=== PATIENT | female | born 1960 | race Caucasian/White ===

== ENCOUNTER 2016-08-06 12:48 | Observation (INO) | payer OTHER ==
[2016-08-06] MEDS ORDERED: SODIUM CHLORIDE 0.9% 1,000 ML IV STA (13:33)
[2016-08-06] MEDS ORDERED: ONDANSETRON 4 MG/2 ML VIAL IVP STA ×2 (13:33→16:08)
[2016-08-06] MEDS ORDERED: NITROGLYCERIN OINT 1 INCH/GM PACKET TOPICAL STA (13:33)
[2016-08-06] MEDS ORDERED: HYDROmorphone 1 MG/ML 1 ML SYRINGE IVP STA ×2 (13:34→16:01)
[2016-08-06 14:01] LABS: Basophils # (A) 0.1 k/uL (0-0.2); Basophils % (A) 1 %; CH 28.6; CHCM 32.4; Eosinophils # (A) 0.2 k/uL (0-0.7); Eosinophils % (A) 3 %; HCT 43.3 % (34.0-46.0); HDW 2.46; HGB 13.7 gm/dL (11.4-16.0); Luc # (Auto) 0.15; Luc % (Auto) 2; Lymphocytes # (A) 2.1 k/uL (1.0-4.8); Lymphocytes % (A) 29 %; MCH 28.2 pg (25.0-35.0); MCHC 31.8 g/dL (31.0-37.0); MCV 88.7 fL (80.0-100.0); Mean Platelet Volume 7.8; Monocytes # (A) 0.5 k/uL (0-1.0); Monocytes % (A) 7 %; Neutrophils # (A) 4.2 k/uL (1.3-7.7); Neutrophils % (A) 58 %; RBC 4.88 m/uL (3.80-5.40); WBC 7.3 k/uL (3.8-10.6); WBC (Perox) 6.92
[2016-08-06 14:20] LABS: Creatine Kinase 85 U/L (30-135)
--- NOTE | 2016-08-06 14:27 | XR ---
EXAMINATION TYPE: XR chest 2V DATE OF EXAM: 08/06/2016 2:22 PM COMPARISON: 01/18/2016 TECHNIQUE: PA and lateral views submitted. HISTORY: Chest pain FINDINGS: The lungs are clear and there is no pneumothorax, pleural effusion, or focal pneumonia. Hyperinflat ion noted. Biapical pleural thickening noted. Hypertrophic and degenerative change of the spine. Surg ical clips in the right upper quadrant. IMPRESSION: 1. No acute process.
[2016-08-06 14:31] LABS: Partial Thromboplastin Time 24.6 sec (22.0-30.0); Prothrombin Time 10.5 sec (9.0-12.0)
[2016-08-06 14:34] LABS: Creatine Kinase MB 0.6 ng/mL (0.0-2.4); Troponin I <0.012 ng/mL (0.000-0.034)
[2016-08-06 15:10] LABS: ALT 114 U/L (9-52); AST 164 U/L (14-36); Alkaline Phosphatase 93 U/L (38-126); Amylase 162 U/L (30-110); Anion Gap 10 mmol/L; Blood Urea Nitrogen 10 mg/dL (7-17); Calcium 9.2 mg/dL (8.4-10.2); Carbon Dioxide 26 mmol/L (22-30); Chloride 108 mmol/L (98-107); Glucose 86 mg/dL (74-99); Magnesium 1.9 mg/dL (1.6-2.3); Non-African American GFR(MDRD) >60 (>60 ml/min/1.73 sqM); Sodium 144 mmol/L (137-145); Total Bilirubin 1.2 mg/dL (0.2-1.3); Total Protein 7.2 g/dL (6.3-8.2)
[2016-08-06] MEDS ORDERED: RX INFO: IV CONTRAST WAS GIVEN 1 EACH MISC MISCELLANE PRN ×2 (15:14→15:16)
--- NOTE | 2016-08-06 15:27 | ED ---
Chest Pain HPI - General Chief Complaint: Chest Pain Stated Complaint: Chest Pain, SOB Time Seen by Provider: 08/06/16 13:07 Source: patient Mode of arrival: wheelchair Limitations: no limitations - History of Present Illness Initial Comments: Draining about chest pain off and on since 4 AM today she is also complaining about pain in the epigastric area and slight pain in the right upper quadrant area she does have a history of hypertension and now has no history of coronary artery disease she had gallbladder surgery about 3 years ago and right knee and chest pain is 5/10 pain gets worse with deep breaths. She denies any fever no chills she is not coughing up any phlegm no headache no neck stiffness no fever no chills no frequency urgency dysuria - Related Data Home Medications Medication Instructions Recorded Confirmed ALPRAZolam [Xanax] 1 mg PO TID PRN 12/05/13 08/06/16 Aspirin 81 mg PO HS 01/18/16 08/06/16 Lisinopril [Prinivil] 20 mg PO HS 08/06/16 08/06/16 Allergies Allergy/AdvReac Type Severity Reaction Status Date / Time No Known Allergies Allergy Verified 08/06/16 13:51 Review of Systems ROS Statement: Those systems with pertinent positive or pertinent negative responses have been documented in the HPI. ROS Other: All systems not noted in ROS Statement are negative. EKG Findings - EKG Comments: EKG Findings:: Normal sinus rhythm ventricular rate is 70 WA interval is 118 QRS duration is 76 QT/QTc is 380/419 diffuse this EKG reveals some T-wave inversion in lead 3 no other abnormalities noticed no ST elevation or ST depression noticed this EKG Past Medical History Past Medical History: Coronary Artery Disease (CAD), Chest Pain / Angina, GERD/ Reflux, Hypertension Additional Past Medical History / Comment(s): hx cystocele/rectocele(had sx), UTI, History of Any Multi-Drug Resistant Organisms: None Reported Past Surgical History: Cholecystectomy, Heart Catheterization, Hysterectomy, Tubal Ligation Additional Past Surgical History / Comment(s): had PARTIAL hysterectomy w/ anterior and posterior colporrhaphy Past Anesthesia/Blood Transfusion Reactions: No Reported Reaction Past Psychological History: Anxiety Additional Psychological History / Comment(s): c/o chest pain off and on for some time. last night developed pressure pain at rest lasting 2-3 hours. Smoking Status: Never smoker Past Alcohol Use History: None Reported Past Drug Use History: None Reported - Past Family History Father Family Medical History: Cancer, Congestive Heart Failure (CHF), Coronary Artery Disease (CAD), Hypertension, Myocardial Infarction ([place]), Renal Disease Additional Family Medical History / Comment(s): KIDNEY/COLON CA Mother Family Medical History: Asthma, Hypertension, Osteoarthritis (OA) General Exam - General Exam Comments Initial Comments: General: The patient is awake and alert, in no distress, and does not appear acutely ill. Skin: Skin is warm and dry and no rashes or lesions are noted. Eye: Pupils are equal, round and reactive to light, extra-ocular movements are intact; there is normal conjunctiva bilaterally. Ears, nose, mouth and throat: There are moist mucous membranes and no oral lesions. Neck: The neck is supple, there is no tenderness or JVD. Cardiovascular: There is a regular rate and rhythm. No murmur, rub or gallop is appreciated. Respiratory: To auscultation bilateral, no wheezing no rhonchi no distress respiratory sandhu noticed Gastrointestinal: D tender in epigastric area and the right upper quadrant area , positive bowel sounds no guarding no rebounds Back: There is no tenderness to palpation in the midline. There is no obvious deformity. Musculoskeletal: Normal ROM, no tenderness, There is no pedal edema. There is no calf tenderness or swelling. No cords were appreciated. Neurological: CN II-XII intact, Cranial nerves III through XII are intact. There are no obvious motor or sensory deficits. Coordination appears grossly intact. Speech is normal. Psychiatric: Cooperative, appropriate mood & affect, normal judgment. Limitations: no limitations Course Vital Signs 08/06/16 08/06/16 08/06/16 12:51 14:00 14:48 Temperature 97.9 F Pulse Rate 71 64 Pulse Rate [ 78 Right Radial] Respiratory 20 18 Rate Blood Pressure 146/82 136/74 O2 Sat by Pulse 98 100 Oximetry 08/06/16 08/06/16 08/06/16 15:00 16:13 17:45 Temperature 98.1 F Pulse Rate 67 85 65 Pulse Rate [ Right Radial] Respiratory 18 18 18 Rate Blood Pressure 120/65 124/61 136/72 O2 Sat by Pulse 99 99 98 Oximetry Labs are reviewed along with the imaging studies, chest x-ray is normal CBC is negative d-dimer is elevated his 0.90 amylase is 162 considering Elevated d- dimer (Guidant do the CT chest to rule out any PE and CT abdomen be done though she has a gallbladder surgery 3 years ago LFTs are slightly elevated and so is the amylase 1 rule out any liver or pancreatic pathology Critical Care Time Total Critical Care Time: 35 Critical Care Time: Reviewed all labs amylase is slightly elevated so is the d-dimer the though her chest x-ray is normal so is the troponin regarding to the CT chest to rule out any PE as well as CT abdomen to rule out any pancreatic or liver pathology because liver enzymes are bit elevated Disposition Clinical Impression: Chest pain, Epigastric pain, Elevated LFTs, Pancreatitis Disposition: ADMITTED IP TO THIS HOSP Condition: Good Referrals: Rickie Brenner DO [Primary Care Provider] - 1-2 days
--- NOTE | 2016-08-06 16:12 | CT ---
CT CHEST FOR PULMONARY EMBOLISM. EXAMINATION TYPE: CT angio chest DATE OF EXAM: 08/06/2016 4:03 PM INDICATION: CHEST PAIN CT DLP: 587.9 mGycm, Automated exposure control for dose reduction was used. CONTRAST: Patient injected with 100 mL of Omnipaque 350. COMPARISON: 01/18/2016 TECHNIQUE: CT of the chest is performed on a spiral scan at 2 mm thick sections. Study is performed with intravenous contrast timed for evaluation for pulmonary embolism. This will limit additional po rtions of the evaluation. 3-D MIP images reconstructed by the technologist are reviewed on the compu ter in the coronal and sagittal planes. FINDINGS: No persistent filling defects are evident to suggest an acute pulmonary embolism. No mediastinal or hilar adenopathy enlarged by CT criteria is evident. The ascending aorta diameter at the level of the main pulmonary artery is 3.2 cm. The main pulmonary artery diameter at the bifur cation is 2.9 cm. No suspicious lung infiltrates are evident. No discrete masses or nodules are evident. Limited CT section through the upper abdomen are unremarkable. IMPRESSIONS: 1. No acute pulmonary embolism.
--- NOTE | 2016-08-06 16:17 | CT ---
EXAMINATION TYPE: CT abdomen pelvis w con DATE OF EXAM: 08/06/2016 4:03 PM COMPARISON: 04/05/2016 INDICATION: EPIGASTRIC PAIN DLP: 326.6 mGycm, Automated exposure control for dose reduction was used. CONTRAST: 100 mL of Omnipaque 350. Study performed without Oral Contrast TECHNIQUE: Axial images were obtained from above the diaphragm to the pubic rami in the axial plane a t 5 mm thick sections. Reconstructed images are reviewed on the computer in the coronal plane. FINDINGS: Limited CT sections are obtained the lung bases. The lung bases are clear. CT ABDOMEN: Liver: Normal Spleen: Normal. Splenule's are adjacent to the spleen. Pancreas: Normal Adrenal glands: The adrenal glands are normal. Gallbladder: Surgically absent Kidneys: No masses are evident. No hydronephrosis is present. No cysts are present. Delayed images were obtained through the kidneys, which remain unremarkable. Aorta: Normal Inferior vena cava: Normal. CT PELVIS: Loops of bowel within the abdomen and pelvis are normal. Appendix: Normal as visualized. Urinary bladder: Normal. Genitourinary structures: Uterus is not identified. Adnexal regions are clear. Very minimal fluid may be within the pelvis. Osseous structures: No suspicious lytic or sclerotic lesions. IMPRESSIONS: 1. Unremarkable CT abdomen and pelvis.
[2016-08-06] MEDS ORDERED: ONDANSETRON 4 MG/2 ML VIAL IVP PRN (18:03)
[2016-08-06] MEDS ORDERED: HYDROmorphone 1 MG/ML 1 ML SYRINGE IV PRN (18:03)
[2016-08-06] MEDS ORDERED: NALOXONE 0.4 MG/ML 1 ML VIAL IV PRN (18:03)
[2016-08-06] MEDS ORDERED: ALPRAZolam 0.5 MG TAB PO PRN (18:12)
[2016-08-06] MEDS: SODIUM CHLORIDE 0.9% 1,000 ML IV SCH (18:50)
[2016-08-06] MEDS ORDERED: LISINOPRIL 20 MG TAB PO SCH (21:00)
[2016-08-06] MEDS ORDERED: ASPIRIN 81 MG CHEW PO SCH (21:00)
[2016-08-06] MEDS: HYDROmorphone 1 MG/ML 1 ML SYRINGE IVP PRN (21:29)
[2016-08-06] MEDS: ONDANSETRON 4 MG/2 ML VIAL IVP PRN (21:29)
[2016-08-07] MEDS: SODIUM CHLORIDE 0.9% 1,000 ML IV SCH ×2 (00:32→04:15)
[2016-08-07] MEDS: HYDROmorphone 1 MG/ML 1 ML SYRINGE IVP PRN ×3 (01:23→09:55)
[2016-08-07] MEDS: ONDANSETRON 4 MG/2 ML VIAL IVP PRN (05:24)
[2016-08-07 07:25] LABS: ALT 86 U/L (9-52); AST 68 U/L (14-36); Alkaline Phosphatase 86 U/L (38-126); Amylase 37 U/L (30-110); Anion Gap 10 mmol/L; Blood Urea Nitrogen 7 mg/dL (7-17); Calcium 8.5 mg/dL (8.4-10.2); Carbon Dioxide 22 mmol/L (22-30); Chloride 112 mmol/L (98-107); Glucose 94 mg/dL (74-99); Non-African American GFR(MDRD) >60 (>60 ml/min/1.73 sqM); Potassium 4.3 mmol/L (3.5-5.1); Sodium 144 mmol/L (137-145); Total Bilirubin 1.1 mg/dL (0.2-1.3); Total Protein 6.5 g/dL (6.3-8.2)
[2016-08-07 07:43] VITALS: TEMP 98.1
[2016-08-07 08:02] LABS: Basophils % (A) 1 %; CH 28.5; Eosinophils # (A) 0.1 k/uL (0-0.7); Eosinophils % (A) 2 %; HCT 34.6 % (34.0-46.0); HDW 2.44; Luc # (Auto) 0.17; Luc % (Auto) 3; Lymphocytes # (A) 1.8 k/uL (1.0-4.8); Lymphocytes % (A) 29 %; MCH 28.4 pg (25.0-35.0); MCHC 31.8 g/dL (31.0-37.0); MCV 89.5 fL (80.0-100.0); Mean Platelet Volume 7.6; Monocytes # (A) 0.4 k/uL (0-1.0); Monocytes % (A) 7 %; Neutrophils # (A) 3.6 k/uL (1.3-7.7); Neutrophils % (A) 59 %; RBC 3.86 m/uL (3.80-5.40); WBC 6.1 k/uL (3.8-10.6); WBC (Perox) 6.81
[2016-08-07] MEDS ORDERED: ENOXAPARIN 40 MG/0.4 ML SYRINGE SQ SCH (09:00)
[2016-08-07] MEDS ORDERED: PANTOPRAZOLE 40 MG/10 ML VIAL IV SCH (09:00)
--- NOTE | 2016-08-07 10:11 | CONS ---
DATE OF CONSULTATION: Pily is a 56-year-old lady she primarily came to hospital with epigastric discomfort and also had chest pain for which Cardiology had been consulted. At the time of my evaluation this morning, her abdominal discomfort has resolved. She does not have any chest pain and she wants to go home. Her EKG did not reveal acute ischemic changes. Amylase and lipase that were elevated have actually come down. Past medical history is significant for hypertension. Medications at home include aspirin, Xanax and Prinivil. ALLERGIES: There are no known drug allergies. Family history is negative for premature coronary artery disease. Social history is negative for smoking, EtOH abuse or drug abuse. REVIEW OF SYSTEMS: HEENT: Unremarkable. CARDIAC: As described above. RESPIRATORY: Negative. GI: As described above. GENITOURINARY: Negative. ALLERGY/IMMUNOLOGICAL: Negative. MUSCULOSKELETAL: Significant for arthritis. PSYCHOSOCIAL: Negative. ENDOCRINE: Negative. DERMATOLOGY: Negative. CONSTITUTIONAL: Negative. The rest of the system review is not relevant. On exam, comfortable at rest. Vital signs are stable. There is no jugular venous distention. Carotid upstroke is normal. There is no bruit. Chest exam reveals good air entry bilaterally. Heart exam reveals first and second heart sounds. No gallop. No murmur, no rub. Abdomen is soft, nontender. Exam of extremities did not reveal any edema. Peripheral pulses are felt. Labs show that the potassium is 4.3. Creatinine is 0.5. Troponin is negative. EKG does not reveal ischemic changes. Patient had a D-dimer that was at 0.9 and went on to have a CT chest that is negative for pulmonary embolism. The exact etiology of the patient's symptomatology is unclear, but her symptoms inconsistent with a diagnosis of myocardial ischemia. From cardiac standpoint, she is stable. I reviewed her medications. She will need outpatient workup, which I am going to set up. She will need a stress test and echo.
--- NOTE | 2016-08-07 10:56 | P.CONS ---
History of Present Illness - Reason for Consult Consult date: 08/07/16 Pancreatitis Requesting physician: Rickie Brenner - History of Present Illness 56-year-old female patient Dr. Brenner with a past medical history of cholecystectomy cholelithiasis choledocholithiasis CAD GERD hypertension anxiety and syncope. Patient presents with severe midepigastric left upper quadrant abdominal pain that started yesterday morning. The patient requested for acute pancreatitis. Admission lipase 3201 currently 161. Amylase 162 currently 37. Total bilirubin 1.2. AST 164. ALT 114. Alkaline phosphate is 93. Today and transaminases are improved AST 68. ALT 86. Alk phosphatase 86 and total bilirubin 1.1. She has a history of choledocholithiasis that required ERCP after her gallbladder was removed a few years ago. She feels much better this morning with near resolution of her abdominal pain. CT abdomen and pelvis unremarkable. CTA negative for PE. Review of Systems Constitutional: Denies fever, chills, sweats, weight gain, or loss. HEENT: Negative for migraines, blurred vision or loss, earaches, drainage, tinnitus, oral mucosal lesions, dysphagia, or odynophagia. CARDIAC: CAD. Hypertension. Syncope. RESPIRATORY: Negative for shortness of breath, hemoptysis, cough, or sputum production. GI: See HPI for pertinent findings. : Negative for hematuria, urgency, frequency, polyuria, or dysuria. GYNc: Denies possibility of . Negative vaginal discharge. MUSCULOSKELETAL: Osteoarthritis. NEUROLOGIC: Negative for stroke or TIA. ENDOCRINE: Negative for thyroid problems. SKIN: Negative for rash or itching. PSYCHIATRIC: anxiety All systems: negative (See HPI) Past Medical History Past Medical History: Coronary Artery Disease (CAD), Chest Pain / Angina, GERD/ Reflux, Hypertension, Osteoarthritis (OA), Syncope Additional Past Medical History / Comment(s): hx cystocele/rectocele(had sx), UTI, heart cath, passed out a couple weeks ago for a couple minutes History of Any Multi-Drug Resistant Organisms: None Reported Past Surgical History: Cholecystectomy, Heart Catheterization, Hysterectomy, Tubal Ligation Additional Past Surgical History / Comment(s): had PARTIAL hysterectomy w/ anterior and posterior colporrhaphy, esophagus surgery for gurd Past Anesthesia/Blood Transfusion Reactions: No Reported Reaction Past Psychological History: Anxiety Additional Psychological History / Comment(s): c/o chest pain off and on for some time. last night developed pressure pain at rest lasting 2-3 hours. Smoking Status: Never smoker Past Alcohol Use History: None Reported Past Drug Use History: None Reported - Past Family History Father Family Medical History: Cancer, Congestive Heart Failure (CHF), Coronary Artery Disease (CAD), Hypertension, Myocardial Infarction ([place]), Renal Disease Additional Family Medical History / Comment(s): KIDNEY/COLON CA Mother Family Medical History: Asthma, Hypertension, Osteoarthritis (OA) Medications and Allergies Home Medications Medication Instructions Recorded Confirmed Type ALPRAZolam [Xanax] 1 mg PO TID PRN 12/05/13 08/06/16 History Aspirin 81 mg PO HS 01/18/16 08/06/16 History Lisinopril [Prinivil] 20 mg PO HS 08/06/16 08/06/16 History Allergies Allergy/AdvReac Type Severity Reaction Status Date / Time No Known Allergies Allergy Verified 08/06/16 20:20 Physical Exam Vitals: Vital Signs Temp Pulse Pulse Resp BP BP Pulse Ox 08/07/16 07:42 98.1 F 66 18 101/57 96 08/07/16 04:00 98.0 F 76 16 112/90 95 08/07/16 00:00 97.7 F 58 L 16 118/58 94 L 08/06/16 20:20 89 18 141/78 97 08/06/16 20:00 97.6 F 62 16 145/83 08/06/16 18:26 97.6 F 62 16 145/83 96 Intake and Output 08/06/16 08/07/16 08/07/16 22:59 06:59 14:59 Intake Total 500 1300 Balance 500 1300 Intake: IV 400 Sodium Chloride 0.9% 1, 400 000 ml @ 100 mls/hr IV . Q10H [facility] Rx#:[id number] Intake, IV Titration 1200 Amount Sodium Chloride 0.9% 1, 1200 000 ml @ 200 mls/hr IV . Q5H [facility] Rx#:[id number] Oral 100 100 Other: Voiding Method Toilet Toilet # Voids 2 3 Weight 79.5 kg 79.5 kg General appearance: The patient is alert, oriented, in no acute distress. HET: Head is normocephalic and atraumatic. Pupils are equal and reactive. Oropharynx is clear without lesions. Neck: Supple without lymphadenopathy. Trachea midline. Heart: S1 S2. Regular rate and rhythm. Lungs: No crackles or wheezes are heard. Abdomen: Soft, nontender, nondistended with bowel sounds. No peritoneal signs. No palpable organomegaly or masses. Extremities: Normal skin color and turgor. No cyanosis, rash, ulceration, clubbing, or edema. Radial and pedal pulses are 2/4 bilaterally. Neurological: No focal deficits. Strength and sensation are grossly intact. Results CBC & Chem 7: 08/07/16 06:44 08/07/16 06:44 Labs: Abnormal Lab Results - Last 24 Hours (Table) 08/07/16 08/07/16 Range/Units 06:44 06:44 Hgb 11.0 L (11.4-16.0) gm/dL Chloride 112 H (98-107) mmol/L AST 68 H (14-36) U/L ALT 86 H (9-52) U/L CT scan - abdomen: report reviewed (Reviewed by Dr. Cadena) Assessment and Plan (1) Pancreatitis Narrative/Plan: Acute pancreatitis with history of cholecystectomy cholelithiasis and choledocholithiasis with mild transaminitis suspect gallstone pancreatitis with passage of gallstone microlithiasis. Status: Acute Plan: 1. ERCP not indicated as abdominal pain, transaminases, and pancreatic enzymes improved. 2. Discharge per medicine. Thank you for this kind referral and the opportunity to participate in the care of your patient. This consultation was discussed with Dr. Cadena. The impression and plan of care have been directed as dictated.
[2016-08-07 12:04] VITALS: BP 144/78; PULSE 82; RESP 16
--- NOTE | 2016-08-07 16:11 | P.HPIM ---
History of Present Illness H&P Date: 08/07/16 (Patient seen at 11 AM) Chief Complaint: Abdominal and chest pain This is a medical H&P and discharge summary combined: Patient is a 56-year-old female, patient of Dr. Brenner in the outpatient setting , with medical history significant for coronary artery disease, GERD, hypertension, osteoarthritis, syncope, choledocholithiasis, and anxiety. Surgical history significant for cholecystectomy and ERCP for complete of cholelithiasis.. Patient presented to the emergency department with complaints of midepigastric and left upper quadrant abdominal pain 1 day. Patient admitted with evidence of acute pancreatitis. EKG without evidence of acute ischemic changes. Troponins negative. CT of the abdomen and pelvis unremarkable. Chest CTA negative for PE. Patient was evaluated by GI service is suspected acute gallstone pancreatitis with passage of gallstone microlithiasis. Patient not a candidate for ERCP at this time as abdominal pain , transaminases, and pancreatic enzymes improved. Patient was evaluated by cardiology who felt patient's pain was not consistent with acute ischemic chest pain. Patient was instructed to follow-up with outpatient cardiology for workup with she'll need a stress test and an echocardiogram per cardiology. Past Medical History Past Medical History: Coronary Artery Disease (CAD), Chest Pain / Angina, GERD/ Reflux, Hypertension, Osteoarthritis (OA), Syncope Additional Past Medical History / Comment(s): hx cystocele/rectocele(had sx), UTI, heart cath, passed out a couple weeks ago for a couple minutes History of Any Multi-Drug Resistant Organisms: None Reported Past Surgical History: Cholecystectomy, Heart Catheterization, Hysterectomy, Tubal Ligation Additional Past Surgical History / Comment(s): had PARTIAL hysterectomy w/ anterior and posterior colporrhaphy, esophagus surgery for gurd Past Anesthesia/Blood Transfusion Reactions: No Reported Reaction Past Psychological History: Anxiety Additional Psychological History / Comment(s): c/o chest pain off and on for some time. last night developed pressure pain at rest lasting 2-3 hours. Smoking Status: Never smoker Past Alcohol Use History: None Reported Past Drug Use History: None Reported - Past Family History Father Family Medical History: Cancer, Congestive Heart Failure (CHF), Coronary Artery Disease (CAD), Hypertension, Myocardial Infarction ([place]), Renal Disease Additional Family Medical History / Comment(s): KIDNEY/COLON CA Mother Family Medical History: Asthma, Hypertension, Osteoarthritis ([place]) Medications and Allergies Home Medications Medication Instructions Recorded Confirmed Type ALPRAZolam [Xanax] 1 mg PO TID PRN 12/05/13 08/06/16 History Aspirin 81 mg PO HS 01/18/16 08/06/16 History Lisinopril [Prinivil] 20 mg PO HS 08/06/16 08/06/16 History Allergies Allergy/AdvReac Type Severity Reaction Status Date / Time No Known Allergies Allergy Verified 08/06/16 20:20 Physical Exam Vitals: Vital Signs Temp Pulse Pulse Resp BP BP Pulse Ox 08/07/16 12:00 98.1 F 82 16 144/78 93 L 08/07/16 07:42 98.1 F 66 18 101/57 96 08/07/16 04:00 98.0 F 76 16 112/90 95 08/07/16 00:00 97.7 F 58 L 16 118/58 94 L 08/06/16 20:20 89 18 141/78 97 08/06/16 20:00 97.6 F 62 16 145/83 08/06/16 18:26 97.6 F 62 16 145/83 96 Intake and Output 08/07/16 08/07/16 08/07/16 06:59 14:59 22:59 Intake Total 1300 236 Balance 1300 236 Intake: Intake, IV Titration 1200 Amount Sodium Chloride 0.9% 1, 1200 000 ml @ 200 mls/hr IV . Q5H [facility] Rx#:[id number] Oral 100 236 Other: Voiding Method Toilet # Voids 3 Weight 79.5 kg GENERAL: Pt awake and alert, well-appearing, well-nourished, and in no acute distress. HEAD: Atraumatic, normocephalic. EYES: Pupils equal, round, and reactive to light, extraocular movements intact, sclera anicteric, conjunctiva are normal. ENT:Moist mucous membranes. NECK:Supple without lymphadenopathy or JVD. LUNGS: Breath sounds clear to auscultation bilaterally. No wheezes, rales, or rhonchi. HEART: Heart S1, S2, no S3 or S4. Regular rate and rhythm. No murmurs, rubs or gallops. ABDOMEN: Soft, obese, nontender, nondistended, normoactive bowel sounds. No guarding, no rebound. EXTREMITIES: 2+ peripheral pulses. No edema. No calf tenderness. NEUROLOGICAL: Pt oriented x 3. No focal deficits. Strength and sensation grossly intact. PSYCH: Normal mood, normal affect. SKIN: Warm, dry, intact. Normal turgor. No rashes or lesions. Results CBC & Chem 7: 08/07/16 06:44 08/07/16 06:44 Labs: Abnormal Lab Results - Last 24 Hours (Table) 08/07/16 08/07/16 Range/Units 06:44 06:44 Hgb 11.0 L (11.4-16.0) gm/dL Chloride 112 H (98-107) mmol/L AST 68 H (14-36) U/L ALT 86 H (9-52) U/L Chest x-ray: report reviewed CT scan - abdomen: report reviewed CT scan - pelvis: report reviewed Thrombosis Risk Factor Assmnt - DVT/VTE Prophylaxis DVT/VTE Prophylaxis: Low risk, early ambulation encouraged - Choose All That Apply Each Factor Represents 1 point: Age 41-60 years, Obesity (BMI >25) Thrombosis Risk Factor Assessment Total Risk Factor Score: 2 Thrombosis Risk Factor Assessment Level: Low Risk Assessment and Plan Plan: Impression: 1. Acute pancreatitis with history of cholecystectomy cholelithiasis and choledocholithiasis with mild transaminitis suspect gallstone pancreatitis with passage of gallstone microlithiasis. 2. Acute chest pain not consistent with diagnosis of myocardial ischemia. 3. Coronary artery disease. 4. GERD. 5. Hypertension. 6. Osteoarthritis multiple joints. 7. History of anxiety, stable. Plan: Patient is cleared for discharge by cardiology and gastrointestinal service. Patient will be discharged to home with follow-up in the outpatient setting with cardiology and Dr. Brenner as directed. Discharge diagnoses: 1. Acute pancreatitis with history of cholecystectomy cholelithiasis and choledocholithiasis with mild transaminitis suspect gallstone pancreatitis with passage of gallstone microlithiasis. 2. Acute chest pain not consistent with diagnosis of myocardial ischemia. 3. Coronary artery disease. 4. GERD. 5. Hypertension. 6. Osteoarthritis multiple joints. 7. History of anxiety, stable. The above impression and plan have been discussed and directed by Dr. Brenner. Rosemary CHEW acting as scribe for Dr. Brenner.
== END 2016-08-07 13:45 | disposition home or self-care (01) ==
LOC: EC 12:48 → 3OBS 18:03
PROVIDERS: ADMIT Family Medicine; ATTEND Family Medicine
DX: K85.90 Acute pancreatitis without necrosis or infection, unspecified (principal); R07.9 Chest pain, unspecified; R06.02 Shortness of breath; R79.89 Other specified abnormal findings of blood chemistry; I25.10 Atherosclerotic heart disease of native coronary artery without angina pectoris; K21.9 Gastro-esophageal reflux disease without esophagitis; I10 Essential (primary) hypertension; F41.9 Anxiety disorder, unspecified; Z90.49 Acquired absence of other specified parts of digestive tract; M19.90 Unspecified osteoarthritis, unspecified site; Z79.82 Long term (current) use of aspirin; Z79.899 Other long term (current) drug therapy; E66.9 Obesity, unspecified; Z68.30 Body mass index [BMI] 30.0-30.9, adult; Z82.49 Family history of ischemic heart disease and other diseases of the circulatory system
CPT/HCPCS: 99291; 96374; 96376 ×3; 96375; 96361 ×6; 36415; 93005; 85379; 80053 ×2; 82150 ×2; 82550; 82553; 83690 ×2; 83735; 84484; 85025 ×2; 85610; 85730; 71020; 71275; 74177; G0378 ×2; Q9967; J2405 ×2; J1650; J1170 ×2; C9113; 96372

== ENCOUNTER 2016-09-04 09:56 | Day surgery (SDC) | payer OTHER ==
[2016-09-03 10:23] VITALS: BMI 29.8
[~2016-09-04 09:56] MED LIST: LACTATED RINGERS 1,000 ML IV SCH
[2016-09-04] MEDS ORDERED: LEVOFLOXACIN 500MG-D5W PMX 500 MG in DEXTROSE/WATER 1 100ML.BAG IVPB ONE (10:30)
[2016-09-04] MEDS ORDERED: INDOMETHACIN 50MG SUPPOSITORY RECTAL ONE (10:30)
[2016-09-04 10:44] VITALS: TEMP 97.4
[2016-09-04] MEDS ORDERED: LIDOCAINE 1% 20 ML VIAL (10MG/ML) FOR IV START INTRADERMA ONE (10:44)
[2016-09-04 10:56] LABS: CH 28.7; CHCM 33.1; HCT 38.2 % (34.0-46.0); HDW 2.44; HGB 12.5 gm/dL (11.4-16.0); MCH 28.4 pg (25.0-35.0); MCHC 32.6 g/dL (31.0-37.0); Mean Platelet Volume 6.9; RDW 12.8 % (11.5-15.5); WBC 6.2 k/uL (3.8-10.6)
[2016-09-04 11:09] LABS: ALT 42 U/L (9-52); AST 31 U/L (14-36); Alkaline Phosphatase 91 U/L (38-126); Anion Gap 13 mmol/L; Blood Urea Nitrogen 12 mg/dL (7-17); Carbon Dioxide 26 mmol/L (22-30); Chloride 106 mmol/L (98-107); Glucose 95 mg/dL (74-99); Non-African American GFR(MDRD) >60 (>60 ml/min/1.73 sqM); Potassium 4.3 mmol/L (3.5-5.1); Sodium 145 mmol/L (137-145); Total Bilirubin 0.9 mg/dL (0.2-1.3); Total Protein 7.9 g/dL (6.3-8.2)
[2016-09-04 11:12] LABS: Partial Thromboplastin Time 24.9 sec (22.0-30.0)
[2016-09-04] MEDS ORDERED: LIDOCAINE 1% INJ 10MG/ML (20 ML MDV) ONE (12:24)
[2016-09-04] MEDS ORDERED: PROPOFOL 10 MG/ML 20 ML VIAL IV ONE (12:24)
[2016-09-04] MEDS ORDERED: IOHEXOL 300 MG/ML 50 ML BOTTLE MISCELLANE ONE (12:37)
--- NOTE | 2016-09-04 12:46 | P.PCN ---
Date of Procedure: 09/04/16 Procedure(s) Performed: Brief history: Patient is a 56 year-old pleasant lady scheduled for an ERCP as part of evaluation of intermittent episodes of epigastric pain and right upper quadrant abdominal pain for the last few weeks duration. She was admitted hospital on August 07 of this year with acute bili pancreatic titers and she was noted to have mild elevation of serum transaminases but did normalized within 24 hours and she was discharged home. She did have ERCP with CBD stone extraction by Dr. Sarah in November 2014 and 6 months earlier to that she had gallbladder surgery or symptomatic gallstones. Because of her symptoms of intermittent epigastric and right upper quadrant abdominal pain as well as recent episode of acute biliary pancreatitis she is scheduled for an ERCP for possible retained common bile duct stone. Procedure performed: ERCP with balloon extraction Preoperative diagnoses: Intermittent episodes of epigastric/right upper quadrant abdominal pain, recent episode of acute biliary pancreatitis and prior history of CBD stones IV sedation per anesthesia: Procedure: After informed consent was obtained from the patient and after the risks benefits and complications including bleeding perforation and pancreatitis explained in detail the patient was brought into the endoscopy unit. The patient was placed in prone position and IV conscious sedation was administered by anesthesia under continuous monitoring. The Olympus side-viewing duodenoscope was then inserted into the mouth and esophagus intubated without any difficulty. The scope was gradually advanced into the stomach and duodenum. The major papilla was identified without any difficulty. There was evidence of prior biliary stent enterotomy noted and this was widely patent. A tapered-tip catheter was passed into the common bile duct and was injected with dye and the CBD appeared to be slightly prominent measuring 7 mm in diameter with some filling defects noted. At this time was not sure whether this area bubbles versus retained common bile duct stone. As the catheter was removed and a past an 8 mm balloon into the common CBD and advanced further into the right biliary system. It was gently inflated and slowly withdrawn and did not see any stones exiting the ampulla. I repeated this maneuver 2 more times and no stones were seen exiting the ampulla. At this time an occlusion cholangiolar was performed no filling defects were noted . The pancreatic duct was not cannulated intentionally. The patient tolerated the procedure well. Impression: Slightly prominent common bile duct measuring 7 mm in diameter with no filling defects or strictures noted. Status post balloon extraction but no obvious stone seen exiting the ampulla. Pancreatic duct intentionally not cannulated Recommendations: The findings of this examination were discussed with the patient as well as a family. She will be discharged home after recovery. If she has any recurrent symptoms she was advised to follow up in office.
--- NOTE | 2016-09-04 12:59 | FL ---
EXAMINATION TYPE: FL ERCP biliary duct only DATE OF EXAM: 09/04/2016 12:51 PM HISTORY: Flouroscopy time 13 seconds of fluoroscopy provided. IMPRESSION: 1. Fluoroscopy time.
[2016-09-04] MEDS ORDERED: HYDROmorphone 1 MG/ML 1 ML SYRINGE IVP ONE (13:03)
[2016-09-04 13:19] VITALS: RESP 16
[2016-09-04] MEDS ORDERED: ONDANSETRON 4 MG/2 ML VIAL IVP ONE (13:26)
[2016-09-04] MEDS ORDERED: fentaNYL (PF) 50 MCG/ML 2 ML AMP IV ONE (13:26)
[2016-09-04 14:07] VITALS: BP 110/74; PULSE 78
--- NOTE | 2016-09-09 09:48 | CDI ---
Pt Name: Pily Murphy I CONFIDENTIAL MR#: [id number] Adm Date: 09/04/2016 9:56:00 AM Printed:09/09/2016 Physician Documentation Request Page 1 of 1 ICD-10-CM Ready Physicians Documentation Request Patient: Pily Murphy I EPI: [id number] Account: [id number] Payer: [facility] Facility: [facility] Location: - Admit Date: 09/04/2016 9:56:00 AM Query Send By: Loyda Sneed Phone #: Ext. Communication Date: 09/09/2016 9:40:00 AM Clarification Outpatient By submitting this query, we are merely seeking further clarification of documentation to accurately reflect all conditions that you are monitoring, evaluating, treating or that extend the hospitalization or utilize additional resources of care. Please utilize your independent clinical judgment when addressing the question(s) below. Dear Doctor Liberty Cadena, The patients Clinical Indicators include: see below In your Op report, you state "IV conscious sedation", but the Anesthesia Record shows GA/Unconscious Sedation. This is a conflict and we need to know which type of sedation/anesthesia was actually used during the procedure in order to code and bill properly. Please issue an addendum on this account. Thank you. PLEASE DOCUMENT ANY ADDITIONAL DIAGNOSES AND/OR SPECIFICITY IN THE PROGRESS NOTES AND/OR DISCHARGE SUMMARY. Agreed & documented Unable to determine/unknown Disagree with the above request Need to discuss MTDD
--- NOTE | 2016-09-18 11:56 | PCN ---
ADDENDUM TO PROCEDURE NOTE: General anesthesia utilized instead of IV conscious sedation.
== END 2016-09-04 14:12 | disposition home or self-care (01) ==
LOC: ORWHC2ENDO 09:56
PROVIDERS: ATTEND Internal Medicine Gastroenterology
DX: R10.13 Epigastric pain (principal); R10.11 Right upper quadrant pain; Z87.19 Personal history of other diseases of the digestive system; I10 Essential (primary) hypertension; F41.9 Anxiety disorder, unspecified; Z79.82 Long term (current) use of aspirin; Z79.899 Other long term (current) drug therapy
CPT/HCPCS: 80053; 85027; 85610; 85730; 74328; 43277; J2405; J1956; J2001; J3010; J1170; J2704; Q9967; 43260

== ENCOUNTER 2016-09-21 18:40 | Emergency (ER) | payer OTHER ==
[2016-09-21] MEDS ORDERED: ONDANSETRON 4 MG/2 ML VIAL IVP STA (20:38)
[2016-09-21] MEDS ORDERED: HYDROmorphone 1 MG/ML 1 ML SYRINGE IVP STA ×2 (20:38→21:32)
[2016-09-21] MEDS ORDERED: SODIUM CHLORIDE 0.9% 1,000 ML IV STA (20:38)
--- NOTE | 2016-09-21 20:49 | ED ---
Abdominal Pain HPI - General Chief Complaint: Abdominal Pain Stated Complaint: upper abdominal pain Time Seen by Provider: 09/21/16 20:38 Source: patient, RN notes reviewed Mode of arrival: wheelchair Limitations: no limitations - History of Present Illness Initial Comments: This a 56-year-old female presents to emergency Department chief complaint epigastric pain. Patient states she's been having ongoing pain over the last few weeks to months. Patient states got worse last 3-4 days. Patient called her primary care physician and GI doctor who she has been seen currently for this pain and advised to come emergency department. Patient states she has an appointment with Dr. ramos who did her surgery for her gallbladder. Patient states she just wanted pain meds slowly wanted come the emergency department to be evaluated. Patient had a scope performed and this showed no stones on ERCP and no evidence of ulcers. Patient denies acid reflux. Patient has chest pain , shortness breath, fever, chills, diarrhea, constipation, dysuria or hematuria. Patient had prior surgeries including cholecystomy, nissenfundoplication, hernia repair, hysterectomy, bladder suspension 2, appendectomy. Patient states she just has no appetite. Patient has some nausea no vomiting - Related Data Home Medications Medication Instructions Recorded Confirmed Aspirin 81 mg PO HS 01/18/16 09/21/16 Lisinopril [Prinivil] 20 mg PO HS 08/06/16 09/21/16 ALPRAZolam [Xanax] 1 mg PO BID PRN 09/21/16 09/21/16 Previous Rx's Medication Instructions Recorded Hydrocodone/Acetaminophen [[place] 1 tab PO Q6HR PRN #20 tab 09/21/16 5-325] Ondansetron Odt [Zofran Odt] 4 mg PO Q8HR PRN #10 tab 09/21/16 Allergies Allergy/AdvReac Type Severity Reaction Status Date / Time No Known Allergies Allergy Verified 09/21/16 20:37 Review of Systems ROS Statement: Those systems with pertinent positive or pertinent negative responses have been documented in the HPI. ROS Other: All systems not noted in ROS Statement are negative. Past Medical History Past Medical History: Chest Pain / Angina, GERD/Reflux, Hypertension, Osteoarthritis (OA), Syncope Additional Past Medical History / Comment(s): Pancreatitis History of Any Multi-Drug Resistant Organisms: None Reported Past Surgical History: Cholecystectomy, Heart Catheterization, Hysterectomy, Tubal Ligation Additional Past Surgical History / Comment(s): had PARTIAL hysterectomy, HIATAL HERNIA REPAIR, ERCP, BLADDER SUSPENSION X2, CYSTOCELE, RECTOCELE REPAIR Past Anesthesia/Blood Transfusion Reactions: Postoperative Nausea & Vomiting ( PONV) Past Psychological History: Anxiety Additional Psychological History / Comment(s): . Smoking Status: Never smoker Past Alcohol Use History: None Reported Past Drug Use History: None Reported - Past Family History Father Family Medical History: Cancer, Congestive Heart Failure (CHF), Coronary Artery Disease (CAD), Hypertension, Myocardial Infarction ([place]), Renal Disease Additional Family Medical History / Comment(s): KIDNEY/COLON CA Mother Family Medical History: Asthma, Hypertension, Osteoarthritis (OA) General Exam Limitations: no limitations General appearance: alert, in no apparent distress Head exam: Present: atraumatic, normocephalic, normal inspection Respiratory exam: Present: normal lung sounds bilaterally. Absent: respiratory distress, wheezes, rales, rhonchi, stridor Cardiovascular Exam: Present: regular rate, normal rhythm, normal heart sounds. Absent: systolic murmur, diastolic murmur, rubs, gallop, clicks GI/Abdominal exam: Present: soft, tenderness (Moderate epigastric tenderness), normal bowel sounds. Absent: distended, guarding, rebound, rigid Back exam: Absent: CVA tenderness (R), CVA tenderness (L) Neurological exam: Present: alert, oriented X3, CN II-XII intact Psychiatric exam: Present: normal affect, normal mood Course Vital Signs 09/21/16 19:01 Temperature 97.0 F L Pulse Rate 81 Respiratory 16 Rate Blood Pressure 135/86 O2 Sat by Pulse 100 Oximetry - Reevaluation(s) Reevaluation #1: 09/21/16 22:10 Patient was updated on x-ray, lab results. Patient all within normal limits. Patient states she does feel improved. Patient is requesting to be discharged. Patient be sent home with pain medication. Medical Decision Making - Medical Decision Making 56-year-old female presented emergency department for epigastric pain. Patient' s been having ongoing pain which has been undiagnosed by GI, primary care physician and surgery. Patient states she is feeling better at this time. Patient will be discharged with pain medication and follow-up with her surgeon Dr. Torres - Lab Data Result diagrams: 09/21/16 21:05 09/21/16 21:05 Lab Results 09/21/16 09/21/16 09/21/16 Range/Units 21:05 21:05 21:05 WBC 8.0 (3.8-10.6) k/uL RBC 4.57 (3.80-5.40) m/uL Hgb 13.3 (11.4-16.0) gm/dL Hct 40.1 (34.0-46.0) % MCV 87.9 (80.0-100.0) fL MCH 29.1 (25.0-35.0) pg MCHC 33.2 (31.0-37.0) g/dL RDW 12.9 (11.5-15.5) % Plt Count 371 (150-450) k/uL Neutrophils % 60 % Lymphocytes % 30 % Monocytes % 5 % Eosinophils % 2 % Basophils % 1 % Neutrophils # 4.8 (1.3-7.7) k/uL Lymphocytes # 2.4 (1.0-4.8) k/uL Monocytes # 0.4 (0-1.0) k/uL Eosinophils # 0.1 (0-0.7) k/uL Basophils # 0.1 (0-0.2) k/uL Sodium 142 (137-145) mmol/L Potassium 4.5 (3.5-5.1) mmol/L Chloride 105 (98-107) mmol/L Carbon Dioxide 27 (22-30) mmol/L Anion Gap 10 mmol/L BUN 11 (7-17) mg/dL Creatinine 0.54 (0.52-1.04) mg/dL Est GFR (MDRD) Af Amer >60 (>60 ml/min/1.73 sqM) Est GFR (MDRD) Non-Af >60 (>60 ml/min/1.73 sqM) Glucose 93 (74-99) mg/dL Calcium 10.0 (8.4-10.2) mg/dL Total Bilirubin 1.1 (0.2-1.3) mg/dL AST 45 H (14-36) U/L ALT 62 H (9-52) U/L Alkaline Phosphatase 122 (38-126) U/L Total Protein 8.2 (6.3-8.2) g/dL Albumin 4.5 (3.5-5.0) g/dL Amylase 42 (30-110) U/L Lipase 80 (23-300) U/L Urine Color Yellow Urine Appearance Cloudy H (Clear) Urine pH 5.5 (5.0-8.0) Ur Specific [place] 1.024 (1.001-1.035) Urine Protein Trace H (Negative) Urine Glucose (UA) Negative (Negative) Urine Ketones Negative (Negative) Urine Blood Small H (Negative) Urine Nitrite Negative (Negative) Urine Bilirubin Negative (Negative) Urine Urobilinogen <2.0 (<2.0) mg/dL Ur Leukocyte Esterase Small H (Negative) Urine RBC 5 (0-5) /hpf Urine WBC 6 H (0-5) /hpf Ur Squamous Epith Cells 6 H (0-4) /hpf Urine Bacteria Rare H (None) /hpf Urine Mucus Many H (None) /hpf Disposition Clinical Impression: Epigastric pain Disposition: HOME SELF-CARE Condition: Stable Instructions: Abdominal Pain (ED) Additional Instructions: Please return to the Emergency Department if symptoms worsen or any other concerns. Prescriptions: Hydrocodone/Acetaminophen [[place] 5-325] 1 tab PO Q6HR PRN #20 tab PRN Reason: Pain Ondansetron Odt [Zofran Odt] 4 mg PO Q8HR PRN #10 tab PRN Reason: Nausea Referrals: Rickie Brenner DO [Primary Care Provider] - 1-2 days Time of Disposition: 21:58
[2016-09-21 21:24] LABS: Basophils # (A) 0.1 k/uL (0-0.2); Basophils % (A) 1 %; CH 28.8; CHCM 32.9; Eosinophils # (A) 0.1 k/uL (0-0.7); Eosinophils % (A) 2 %; HCT 40.1 % (34.0-46.0); HDW 2.41; HGB 13.3 gm/dL (11.4-16.0); Luc # (Auto) 0.25; Luc % (Auto) 3; Lymphocytes # (A) 2.4 k/uL (1.0-4.8); Lymphocytes % (A) 30 %; MCH 29.1 pg (25.0-35.0); MCHC 33.2 g/dL (31.0-37.0); MCV 87.9 fL (80.0-100.0); Mean Platelet Volume 7.3; Monocytes # (A) 0.4 k/uL (0-1.0); Monocytes % (A) 5 %; Neutrophils # (A) 4.8 k/uL (1.3-7.7); Neutrophils % (A) 60 %; RBC 4.57 m/uL (3.80-5.40); RDW 12.9 % (11.5-15.5); WBC (Perox) 7.83
--- NOTE | 2016-09-21 21:24 | XR ---
EXAMINATION TYPE: XR KUB DATE OF EXAM: 09/21/2016 9:13 PM COMPARISON: 04/05/2016 HISTORY: Abdominal pain and nausea TECHNIQUE: 2 views FINDINGS: There is no sign of intestinal obstruction or pneumoperitoneum. Fecal pattern is normal. Amairani ng bases are clear. There are clips from cholecystectomy. There is no sign of a mass. There are no pa thologic calcifications over the kidneys. IMPRESSION: Nonacute abdomen. No change compared to last exam.
[2016-09-21 21:27] LABS: Appearance,Urine Cloudy (Clear); Bacteria,Urine Rare /hpf; Bilirubin,Urine Negative (Negative); Glucose,Urine (UA) Negative (Negative); Ketones,Urine Negative (Negative); Leukocyte Esterase,Urine Small (Negative); Mucus,Urine Many /hpf; Nitrite,Urine Negative (Negative); PH, Urine 5.5 (5.0-8.0); Particle Count 8861; Protein,Urine Trace (Negative); RBC,Urine 5 /hpf (0-5); Specific Gravity,Urine 1.024 (1.001-1.035); Squamous Epithelial Cell,Urine 6 /hpf (0-4); UA Billing (MACRO vs. MICRO) MICRO; Urobilinogen,Urine <2.0 mg/dL (<2.0); WBC,Urine 6 /hpf (0-5)
[2016-09-21 21:34] LABS: ALT 62 U/L (9-52); AST 45 U/L (14-36); Alkaline Phosphatase 122 U/L (38-126); Amylase 42 U/L (30-110); Anion Gap 10 mmol/L; Blood Urea Nitrogen 11 mg/dL (7-17); Carbon Dioxide 27 mmol/L (22-30); Chloride 105 mmol/L (98-107); Glucose 93 mg/dL (74-99); Non-African American GFR(MDRD) >60 (>60 ml/min/1.73 sqM); Potassium 4.5 mmol/L (3.5-5.1); Sodium 142 mmol/L (137-145); Total Bilirubin 1.1 mg/dL (0.2-1.3); Total Protein 8.2 g/dL (6.3-8.2)
[2016-09-21 22:27] VITALS: RESP 18
[2016-09-21 22:34] VITALS: BP 152/78; PULSE 75; TEMP 97.9
== END 2016-09-21 22:25 | disposition home or self-care (01) ==
LOC: EC 18:40
DX: R10.13 Epigastric pain (principal); R11.0 Nausea; I10 Essential (primary) hypertension; Z79.82 Long term (current) use of aspirin; Z79.899 Other long term (current) drug therapy
CPT/HCPCS: 36415; 80053; 82150; 83690; 85025; 81001; 74000; 99284; 96374; 96375; 96376; 96361; J2405; J1170

== ENCOUNTER 2016-10-11 22:59 | Emergency (ER) | payer OTHER ==
[2016-10-11 23:07] VITALS: TEMP 97.5
[2016-10-11 23:53] LABS: Basophils # (A) 0.1 k/uL (0-0.2); Basophils % (A) 1 %; CH 28.7; CHCM 32.6; Eosinophils # (A) 0.2 k/uL (0-0.7); Eosinophils % (A) 2 %; HCT 37.3 % (34.0-46.0); HDW 2.37; HGB 12.5 gm/dL (11.4-16.0); Luc % (Auto) 3; Lymphocytes # (A) 2.5 k/uL (1.0-4.8); Lymphocytes % (A) 36 %; MCH 29.6 pg (25.0-35.0); MCHC 33.5 g/dL (31.0-37.0); MCV 88.4 fL (80.0-100.0); Mean Platelet Volume 6.6; Monocytes # (A) 0.5 k/uL (0-1.0); Monocytes % (A) 6 %; Neutrophils # (A) 3.6 k/uL (1.3-7.7); Neutrophils % (A) 52 %; RBC 4.22 m/uL (3.80-5.40); RDW 12.6 % (11.5-15.5); WBC (Perox) 7.53
[2016-10-12 00:01] LABS: INR 0.9 (<1.1); Partial Thromboplastin Time 23.7 sec (22.0-30.0); Prothrombin Time 9.7 sec (9.0-12.0)
[2016-10-12 00:04] LABS: Anion Gap 12 mmol/L; Calcium 9.6 mg/dL (8.4-10.2); Carbon Dioxide 26 mmol/L (22-30); Chloride 107 mmol/L (98-107); Glucose 96 mg/dL (74-99); Non-African American GFR(MDRD) >60 (>60 ml/min/1.73 sqM); Sodium 145 mmol/L (137-145); Total Bilirubin 0.9 mg/dL (0.2-1.3)
[2016-10-12 00:05] LABS: Blood Urea Nitrogen 12 mg/dL (7-17); Potassium 4.9 mmol/L (3.5-5.1); Total Protein 7.8 g/dL (6.3-8.2)
[2016-10-12 00:06] LABS: ALT 40 U/L (9-52); AST 41 U/L (14-36); Alkaline Phosphatase 74 U/L (38-126); Magnesium 2.1 mg/dL (1.6-2.3)
[2016-10-12 00:13] LABS: Creatine Kinase 52 U/L (30-135)
[2016-10-12] MEDS ORDERED: HYDROmorphone 1 MG/ML 1 ML SYRINGE IVP STA (00:14)
--- NOTE | 2016-10-12 00:17 | XR ---
EXAM: XR Chest, 2 Views. CLINICAL HISTORY: Reason: Chest Pain TECHNIQUE: Frontal and lateral views of the chest. COMPARISON: 08/06/2016 FINDINGS: Lungs: Stable bilateral pulmonary hyperinflation. No focal consolidation. Biapical pleural parenchymal scar. Pleural space: Unremarkable. No pneumothorax. Heart: Unremarkable. No cardiomegaly. Mediastinum: Unremarkable. Bones/joints: No acute osseous abnormality. IMPRESSION: No acute cardiopulmonary process.
--- NOTE | 2016-10-12 00:24 | ED ---
Chest Pain HPI - General Chief Complaint: Chest Pain Stated Complaint: Chest pain and back pain Time Seen by Provider: 10/11/16 23:22 Source: patient Mode of arrival: wheelchair Limitations: no limitations - History of Present Illness MD Complaint: chest pain -: month(s) Onset: during rest Pain Location: epigastric Pain Radiation: back Severity: severe Quality: other (But able to characterize) Consistency: intermittent Improves With: nothing Worsens With: nothing - Related Data Home Medications Medication Instructions Recorded Confirmed Aspirin 81 mg PO HS 01/18/16 09/21/16 Lisinopril [Prinivil] 20 mg PO HS 08/06/16 09/21/16 ALPRAZolam [Xanax] 1 mg PO BID PRN 09/21/16 09/21/16 Previous Rx's Medication Instructions Recorded Hydrocodone/Acetaminophen [[place] 1 tab PO Q6HR PRN #20 tab 09/21/16 5-325] Ondansetron Odt [Zofran Odt] 4 mg PO Q8HR PRN #10 tab 09/21/16 Dicyclomine [Bentyl] 20 mg PO QID #15 tablet 10/12/16 Famotidine [Pepcid] 20 mg PO BID #28 tablet 10/12/16 Allergies Allergy/AdvReac Type Severity Reaction Status Date / Time No Known Allergies Allergy Verified 10/11/16 23:07 Review of Systems ROS Statement: Those systems with pertinent positive or pertinent negative responses have been documented in the HPI. ROS Other: All systems not noted in ROS Statement are negative. Constitutional: Denies: fever, chills Respiratory: Denies: cough, dyspnea Cardiovascular: Reports: chest pain. Denies: palpitations, edema, syncope Gastrointestinal: Denies: abdominal pain, nausea, vomiting, diarrhea Genitourinary: Denies: dysuria, hematuria Musculoskeletal: Reports: back pain Skin: Denies: rash Neurological: Denies: headache, weakness, numbness EKG Findings - EKG Results: EKG: interpreted by SWEETIE NARANJO, sinus rhythm (Rate 77 bpm), normal axis, normal QRS, normal ST/T Past Medical History Past Medical History: Chest Pain / Angina, GERD/Reflux, Hypertension, Osteoarthritis (OA), Syncope Additional Past Medical History / Comment(s): Pancreatitis History of Any Multi-Drug Resistant Organisms: None Reported Past Surgical History: Cholecystectomy, Heart Catheterization, Hysterectomy, Tubal Ligation Additional Past Surgical History / Comment(s): had PARTIAL hysterectomy, HIATAL HERNIA REPAIR, ERCP, BLADDER SUSPENSION X2, CYSTOCELE, RECTOCELE REPAIR Past Anesthesia/Blood Transfusion Reactions: Postoperative Nausea & Vomiting ( PONV) Past Psychological History: Anxiety Additional Psychological History / Comment(s): . Smoking Status: Never smoker Past Alcohol Use History: None Reported Past Drug Use History: None Reported - Past Family History Father Family Medical History: Cancer, Congestive Heart Failure (CHF), Coronary Artery Disease (CAD), Hypertension, Myocardial Infarction ([place]), Renal Disease Additional Family Medical History / Comment(s): KIDNEY/COLON CA Mother Family Medical History: Asthma, Hypertension, Osteoarthritis (OA) General Exam Limitations: no limitations General appearance: alert, in no apparent distress Head exam: Present: atraumatic, normocephalic Eye exam: Present: normal appearance. Absent: scleral icterus, conjunctival injection ENT exam: Present: normal oropharynx Respiratory exam: Present: normal lung sounds bilaterally. Absent: respiratory distress, wheezes, rales, rhonchi, stridor Cardiovascular Exam: Present: regular rate, normal rhythm, normal heart sounds. Absent: systolic murmur, diastolic murmur, rubs, gallop GI/Abdominal exam: Present: soft, normal bowel sounds. Absent: distended, tenderness, guarding, rebound, rigid, mass, pulsatile mass, hernia Extremities exam: Present: normal inspection, normal capillary refill. Absent: pedal edema, calf tenderness Back exam: Present: normal inspection. Absent: CVA tenderness (R), CVA tenderness (L) Neurological exam: Present: alert Skin exam: Present: warm, dry, intact, normal color. Absent: rash Course Vital Signs 10/11/16 23:04 Temperature 97.5 F L Pulse Rate 85 Respiratory 18 Rate Blood Pressure 147/76 O2 Sat by Pulse 100 Oximetry Disposition Clinical Impression: Epigastric pain Disposition: HOME SELF-CARE Condition: Fair Instructions: Chest Pain (ED) Prescriptions: Dicyclomine [Bentyl] 20 mg PO QID #15 tablet Famotidine [Pepcid] 20 mg PO BID #28 tablet Referrals: Rickie Brenner DO [Primary Care Provider] - 1-2 days
[2016-10-12 00:27] LABS: Creatine Kinase MB 0.7 ng/mL (0.0-2.4); Troponin I <0.012 ng/mL (0.000-0.034)
[2016-10-12] MEDS ORDERED: ONDANSETRON 4 MG/2 ML VIAL IVP STA (00:27)
[2016-10-12 00:32] LABS: Amylase 55 U/L (30-110)
[2016-10-12 01:36] VITALS: BP 147/68; PULSE 68; RESP 16
== END 2016-10-12 01:36 | disposition home or self-care (01) ==
LOC: EC 22:59
DX: R10.13 Epigastric pain (principal); R07.9 Chest pain, unspecified; M54.9 Dorsalgia, unspecified; I10 Essential (primary) hypertension; M19.90 Unspecified osteoarthritis, unspecified site; Z79.82 Long term (current) use of aspirin; Z79.899 Other long term (current) drug therapy; Z82.49 Family history of ischemic heart disease and other diseases of the circulatory system; Z95.818 Presence of other cardiac implants and grafts
CPT/HCPCS: 36415; 93005; 80053; 82150; 82550; 82553; 83690; 83735; 84484; 85025; 85610; 85730; 71020; 99285; 96374; 96375; J2405; J1170

== ENCOUNTER 2016-10-15 13:25 | Inpatient (IN) | payer OTHER ==
[2016-10-15] MEDS ORDERED: MORPHINE SULFATE 4 MG/ML SYRINGE IV STA (14:04)
[2016-10-15] MEDS ORDERED: SODIUM CHLORIDE 0.9% 500 ML IV STA (14:04)
[2016-10-15] MEDS ORDERED: SODIUM CHLORIDE 0.9% 1,000 ML IV STA (14:04)
--- NOTE | 2016-10-15 14:06 | ED ---
General Adult HPI - General Chief complaint: Abdominal Pain Stated complaint: abdominal and chest pain Time Seen by Provider: 10/15/16 13:50 Source: patient, RN notes reviewed, old records reviewed Mode of arrival: ambulatory Limitations: no limitations - History of Present Illness Initial comments: This is a 36-year-old female ER for evaluation. This patient presents for evaluation of chest pain developing epigastric bowel pain, severe. Patient has had cholecystectomy, history of pancreatitis. Patient has had heart catheterization which she believes is negative. Patient states she does have this pain chronically. No fevers. No nausea vomiting or diarrhea. - Related Data Home Medications Medication Instructions Recorded Confirmed Aspirin 81 mg PO HS 01/18/16 10/15/16 Lisinopril [Prinivil] 20 mg PO HS 08/06/16 10/15/16 ALPRAZolam [Xanax] 1 mg PO BID PRN 09/21/16 10/15/16 Previous Rx's Medication Instructions Recorded Hydrocodone/Acetaminophen [Marshall 1 tab PO Q6HR PRN #20 tab 09/21/16 5-325] Ondansetron Odt [Zofran Odt] 4 mg PO Q8HR PRN #10 tab 09/21/16 Dicyclomine [Bentyl] 20 mg PO QID #15 tablet 10/12/16 Allergies Allergy/AdvReac Type Severity Reaction Status Date / Time No Known Allergies Allergy Verified 10/15/16 14:27 Review of Systems ROS Statement: Those systems with pertinent positive or pertinent negative responses have been documented in the HPI. ROS Other: All systems not noted in ROS Statement are negative. Past Medical History Past Medical History: Chest Pain / Angina, GERD/Reflux, Hypertension, Osteoarthritis (OA), Syncope Additional Past Medical History / Comment(s): Pancreatitis History of Any Multi-Drug Resistant Organisms: None Reported Past Surgical History: Cholecystectomy, Heart Catheterization, Hysterectomy, Tubal Ligation Additional Past Surgical History / Comment(s): had PARTIAL hysterectomy, HIATAL HERNIA REPAIR, ERCP, BLADDER SUSPENSION X2, CYSTOCELE, RECTOCELE REPAIR Past Anesthesia/Blood Transfusion Reactions: Postoperative Nausea & Vomiting ( PONV) Past Psychological History: Anxiety Additional Psychological History / Comment(s): . Smoking Status: Never smoker Past Alcohol Use History: None Reported Past Drug Use History: None Reported - Past Family History Father Family Medical History: Cancer, Congestive Heart Failure (CHF), Coronary Artery Disease (CAD), Hypertension, Myocardial Infarction ([place]), Renal Disease Additional Family Medical History / Comment(s): KIDNEY/COLON CA Mother Family Medical History: Asthma, Hypertension, Osteoarthritis (OA) General Exam Limitations: no limitations General appearance: alert, in no apparent distress Head exam: Present: atraumatic, normocephalic, normal inspection Eye exam: Present: normal appearance, PERRL, EOMI. Absent: scleral icterus, conjunctival injection, periorbital swelling ENT exam: Present: normal exam, mucous membranes moist Neck exam: Present: normal inspection. Absent: tenderness, meningismus, lymphadenopathy Respiratory exam: Present: normal lung sounds bilaterally. Absent: respiratory distress, wheezes, rales, rhonchi, stridor Cardiovascular Exam: Present: regular rate, normal rhythm, normal heart sounds. Absent: systolic murmur, diastolic murmur, rubs, gallop, clicks GI/Abdominal exam: Present: soft, normal bowel sounds. Absent: distended, tenderness, guarding, rebound, rigid Extremities exam: Present: normal inspection, full ROM, normal capillary refill. Absent: tenderness, pedal edema, joint swelling, calf tenderness Back exam: Present: normal inspection Neurological exam: Present: alert, oriented X3, CN II-XII intact Psychiatric exam: Present: normal affect, normal mood Skin exam: Present: warm, dry, intact, normal color. Absent: rash Course Vital Signs 10/15/16 10/15/16 10/15/16 13:37 13:40 14:40 Temperature 97 F L Pulse Rate 81 80 83 Respiratory 18 16 16 Rate Blood Pressure 178/100 186/90 163/110 O2 Sat by Pulse 98 100 97 Oximetry 10/15/16 10/15/16 15:15 17:00 Temperature 98 F Pulse Rate 64 82 Respiratory 20 16 Rate Blood Pressure 173/84 169/81 O2 Sat by Pulse 98 98 Oximetry - Reevaluation(s) Reevaluation #1: 10/15/16 17:39 Patient is discussed with at length greater than 15 minutes questions answered and lack of findings. Patient would like to have evaluation further by GI does not feel comfortable going home, states she has multiple ER visits to different emergency rooms for similar pain with no outcomes Reevaluation #2: 10/15/16 17:[address] Brenner as well as Dr. Raphael regarding patient, they are aware Medical Decision Making - Medical Decision Making 56 female to the ER with Intractable abdominal pain history of severe bowel pain no known diagnosis, patient with normal labs will be admitted for pain control and reevaluation by GI - Lab Data Result diagrams: 10/15/16 14:52 10/15/16 14:52 Lab Results 10/15/16 10/15/16 10/15/16 Range/Units 14:26 14:52 14:52 WBC 6.0 (3.8-10.6) k/uL RBC 4.29 (3.80-5.40) m/uL Hgb 12.4 (11.4-16.0) gm/dL Hct 40.3 (34.0-46.0) % MCV 94.0 D (80.0-100.0) fL MCH 28.8 (25.0-35.0) pg MCHC 30.6 L (31.0-37.0) g/dL RDW 12.8 (11.5-15.5) % Plt Count 291 (150-450) k/uL Neutrophils % 56 % Lymphocytes % 33 % Monocytes % 6 % Eosinophils % 2 % Basophils % 1 % Neutrophils # 3.3 (1.3-7.7) k/uL Lymphocytes # 2.0 (1.0-4.8) k/uL Monocytes # 0.4 (0-1.0) k/uL Eosinophils # 0.1 (0-0.7) k/uL Basophils # 0.1 (0-0.2) k/uL Hypochromasia Slight Sodium 144 (137-145) mmol/L Potassium 4.3 (3.5-5.1) mmol/L Chloride 107 (98-107) mmol/L Carbon Dioxide 26 (22-30) mmol/L Anion Gap 11 mmol/L BUN 9 (7-17) mg/dL Creatinine 0.49 L (0.52-1.04) mg/dL Est GFR (MDRD) Af Amer >60 (>60 ml/min/1.73 sqM) Est GFR (MDRD) Non-Af >60 (>60 ml/min/1.73 sqM) Glucose 89 (74-99) mg/dL Calcium 9.5 (8.4-10.2) mg/dL Total Bilirubin 1.2 (0.2-1.3) mg/dL AST 28 (14-36) U/L ALT 34 (9-52) U/L Alkaline Phosphatase 85 (38-126) U/L Total Creatine Kinase (30-135) U/L CK-MB (CK-2) (0.0-2.4) ng/mL CK-MB (CK-2) Rel Index Troponin I (0.000-0.034) ng/mL Total Protein 7.5 (6.3-8.2) g/dL Albumin 4.1 (3.5-5.0) g/dL Amylase 42 (30-110) U/L Lipase 52 (23-300) U/L Urine Color Light Yellow Urine Appearance Clear (Clear) Urine pH 8.0 (5.0-8.0) Ur Specific [place] 1.008 (1.001-1.035) Urine Protein Negative (Negative) Urine Glucose (UA) Negative (Negative) Urine Ketones Negative (Negative) Urine Blood Trace H (Negative) Urine Nitrite Negative (Negative) Urine Bilirubin Negative (Negative) Urine Urobilinogen <2.0 (<2.0) mg/dL Ur Leukocyte Esterase Negative (Negative) Urine RBC 2 (0-5) /hpf Urine WBC 1 (0-5) /hpf Ur Squamous Epith Cells <1 (0-4) /hpf 10/15/16 Range/Units 14:52 WBC (3.8-10.6) k/uL RBC (3.80-5.40) m/uL Hgb (11.4-16.0) gm/dL Hct (34.0-46.0) % MCV (80.0-100.0) fL MCH (25.0-35.0) pg MCHC (31.0-37.0) g/dL RDW (11.5-15.5) % Plt Count (150-450) k/uL Neutrophils % % Lymphocytes % % Monocytes % % Eosinophils % % Basophils % % Neutrophils # (1.3-7.7) k/uL Lymphocytes # (1.0-4.8) k/uL Monocytes # (0-1.0) k/uL Eosinophils # (0-0.7) k/uL Basophils # (0-0.2) k/uL Hypochromasia Sodium (137-145) mmol/L Potassium (3.5-5.1) mmol/L Chloride (98-107) mmol/L Carbon Dioxide (22-30) mmol/L Anion Gap mmol/L BUN (7-17) mg/dL Creatinine (0.52-1.04) mg/dL Est GFR (MDRD) Af Amer (>60 ml/min/1.73 sqM) Est GFR (MDRD) Non-Af (>60 ml/min/1.73 sqM) Glucose (74-99) mg/dL Calcium (8.4-10.2) mg/dL Total Bilirubin (0.2-1.3) mg/dL AST (14-36) U/L ALT (9-52) U/L Alkaline Phosphatase (38-126) U/L Total Creatine Kinase 68 (30-135) U/L CK-MB (CK-2) 0.7 (0.0-2.4) ng/mL CK-MB (CK-2) Rel Index 1.0 Troponin I <0.012 (0.000-0.034) ng/mL Total Protein (6.3-8.2) g/dL Albumin (3.5-5.0) g/dL Amylase (30-110) U/L Lipase (23-300) U/L Urine Color Urine Appearance (Clear) Urine pH (5.0-8.0) Ur Specific [place] (1.001-1.035) Urine Protein (Negative) Urine Glucose (UA) (Negative) Urine Ketones (Negative) Urine Blood (Negative) Urine Nitrite (Negative) Urine Bilirubin (Negative) Urine Urobilinogen (<2.0) mg/dL Ur Leukocyte Esterase (Negative) Urine RBC (0-5) /hpf Urine WBC (0-5) /hpf Ur Squamous Epith Cells (0-4) /hpf Disposition Clinical Impression: Intractable abdominal pain Disposition: ADMITTED IP TO THIS HOSP Condition: Fair Referrals: Rickie Brenner DO [Primary Care Provider] - 1-2 days
[2016-10-15 14:38] LABS: Appearance,Urine Clear (Clear); Bilirubin,Urine Negative (Negative); Glucose,Urine (UA) Negative (Negative); Ketones,Urine Negative (Negative); Leukocyte Esterase,Urine Negative (Negative); Nitrite,Urine Negative (Negative); Particle Count 634; Protein,Urine Negative (Negative); RBC,Urine 2 /hpf (0-5); Specific Gravity,Urine 1.008 (1.001-1.035); Squamous Epithelial Cell,Urine <1 /hpf (0-4); UA Billing (MACRO vs. MICRO) MICRO; Urobilinogen,Urine <2.0 mg/dL (<2.0); WBC,Urine 1 /hpf (0-5)
[2016-10-15] MEDS ORDERED: ONDANSETRON 4 MG/2 ML VIAL IVP STA (14:55)
[2016-10-15 15:11] LABS: Basophils # (A) 0.1 k/uL (0-0.2); Basophils % (A) 1 %; CH 28.5; CHCM 30.4; Eosinophils # (A) 0.1 k/uL (0-0.7); Eosinophils % (A) 2 %; HCT 40.3 % (34.0-46.0); HDW 2.26; HGB 12.4 gm/dL (11.4-16.0); Hypochromasia Slight; Luc # (Auto) 0.15; Luc % (Auto) 3; Lymphocytes % (A) 33 %; MCH 28.8 pg (25.0-35.0); MCHC 30.6 g/dL (31.0-37.0); Mean Platelet Volume 6.8; Monocytes # (A) 0.4 k/uL (0-1.0); Monocytes % (A) 6 %; Neutrophils # (A) 3.3 k/uL (1.3-7.7); Neutrophils % (A) 56 %; RBC 4.29 m/uL (3.80-5.40); RDW 12.8 % (11.5-15.5); WBC (Perox) 6.31
[2016-10-15 15:14] LABS: ALT 34 U/L (9-52); AST 28 U/L (14-36); Alkaline Phosphatase 85 U/L (38-126); Amylase 42 U/L (30-110); Anion Gap 11 mmol/L; Blood Urea Nitrogen 9 mg/dL (7-17); Calcium 9.5 mg/dL (8.4-10.2); Carbon Dioxide 26 mmol/L (22-30); Chloride 107 mmol/L (98-107); Glucose 89 mg/dL (74-99); Non-African American GFR(MDRD) >60 (>60 ml/min/1.73 sqM); Potassium 4.3 mmol/L (3.5-5.1); Sodium 144 mmol/L (137-145); Total Bilirubin 1.2 mg/dL (0.2-1.3); Total Protein 7.5 g/dL (6.3-8.2)
[2016-10-15 15:34] LABS: Creatine Kinase 68 U/L (30-135)
[2016-10-15 15:46] LABS: Creatine Kinase MB 0.7 ng/mL (0.0-2.4); Troponin I <0.012 ng/mL (0.000-0.034)
[2016-10-15] MEDS ORDERED: MORPHINE SULFATE 4 MG/ML SYRINGE IVP STA (17:37)
[2016-10-15] MEDS ORDERED: SODIUM CHLORIDE 0.9% 1,000 ML IV ONE (17:39)
[2016-10-15] MEDS ORDERED: HYDROcodone/APAP 5-325MG 1 EACH TAB PO PRN (18:31)
[2016-10-15] MEDS ORDERED: ALPRAZolam 0.5 MG TAB PO PRN (18:31)
[2016-10-15 19:09] VITALS: BMI 30.6
[2016-10-15] MEDS ORDERED: LISINOPRIL 20 MG TAB PO SCH (21:00)
[2016-10-15] MEDS ORDERED: ASPIRIN 81 MG CHEW PO SCH (21:00)
[2016-10-15 21:06] LABS: Glucose,Whole Blood 80 mg/dL (75-99)
[2016-10-15 22:09] VITALS: RESP 18
[2016-10-15] MEDS: DICYCLOMINE 20 MG TAB PO SCH (23:24)
[2016-10-15] MEDS: MORPHINE SULFATE 4 MG/ML SYRINGE IVP PRN (23:33)
[2016-10-15] MEDS: ONDANSETRON 4 MG/2 ML VIAL IVP PRN (23:33)
[2016-10-16] MEDS: MORPHINE SULFATE 4 MG/ML SYRINGE IVP PRN (05:28)
[2016-10-16] MEDS: DICYCLOMINE 20 MG TAB PO SCH ×2 (08:13→13:28)
[2016-10-16 08:26] LABS: ALT 34 U/L (9-52); AST 26 U/L (14-36); Alkaline Phosphatase 79 U/L (38-126); Amylase 36 U/L (30-110); Anion Gap 7 mmol/L; Blood Urea Nitrogen 8 mg/dL (7-17); Calcium 9.1 mg/dL (8.4-10.2); Carbon Dioxide 27 mmol/L (22-30); Chloride 107 mmol/L (98-107); Glucose 85 mg/dL (74-99); Non-African American GFR(MDRD) >60 (>60 ml/min/1.73 sqM); Potassium 4.1 mmol/L (3.5-5.1); Sodium 141 mmol/L (137-145); Total Bilirubin 1.8 mg/dL (0.2-1.3); Total Protein 6.9 g/dL (6.3-8.2)
[2016-10-16 08:37] VITALS: BP 141/84; PULSE 82; TEMP 97.6
[2016-10-16] MEDS ORDERED: PANTOPRAZOLE 40 MG/10 ML VIAL IVP SCH (09:00)
--- NOTE | 2016-10-16 09:28 | P.CONS ---
History of Present Illness - Reason for Consult Consult date: 10/16/16 Midepigastric pain and nausea Requesting physician: Rickie Brenner - History of Present Illness 56-year-old female well-known to the GI service with past medical history of cholecystectomy, cholelithiasis, choledocholithiasis with ERCP in 2014, GERD, hypertension, anxiety, and syncope. Patient was evaluated a few months ago for acute midepigastric left upper quadrant pain with elevated pancreatic enzymes consistent with acute pancreatitis. At that time it was felt her presentation was a result of passage of microlithiasis. Her liver enzymes were elevated at that time but resolved within 24 hours. She followed up in the GI office and underwent outpatient ERCP in August [address] Cadena sphincterotomy was performed with no evidence of filling defect or evidence of retained bile duct stone. Pancreatic duct was not cannulated. She has had chronic nausea and discomfort in the midepigastric region without emesis for more than 6 months months. Denies fever, hematemesis hematochezia or melena. White count 6. Hemoglobin 12.4. Admission liver enzymes within normal limits. Troponin less than 0.012. Pain is localized most of the midepigastric region and radiates down towards the umbilicus. Review of home medications patient takes Bentyl but is not on H2 antagonist or PPI therapy. This morning total bilirubin has increased to 1.8. AST ALT alkaline phosphatase within normal limits. Lipase 45. She has had multiple CTs of the chest abdomen and pelvis over the last several months with no evidence of acute abdomen or pertinent findings to support her presentation. Review of Systems Constitutional: Denies fever, chills, sweats, weight gain, or loss. HEENT: Negative for migraines, blurred vision or loss, earaches, drainage, tinnitus, oral mucosal lesions, dysphagia, or odynophagia. CARDIAC: CAD. Hypertension. Syncope. RESPIRATORY: Negative for shortness of breath, hemoptysis, cough, or sputum production. GI: See HPI for pertinent findings. : Negative for hematuria, urgency, frequency, polyuria, or dysuria. GYNc: Denies possibility of . Negative vaginal discharge. MUSCULOSKELETAL: Osteoarthritis. NEUROLOGIC: Negative for stroke or TIA. ENDOCRINE: Negative for thyroid problems. SKIN: Negative for rash or itching. PSYCHIATRIC: anxiety All systems: negative (See HPI) Past Medical History Past Medical History: Chest Pain / Angina, GERD/Reflux, Hypertension, Osteoarthritis (OA), Syncope Additional Past Medical History / Comment(s): Pancreatitis History of Any Multi-Drug Resistant Organisms: None Reported Past Surgical History: Cholecystectomy, Heart Catheterization, Hysterectomy, Tubal Ligation Additional Past Surgical History / Comment(s): had PARTIAL hysterectomy, HIATAL HERNIA REPAIR, ERCP, BLADDER SUSPENSION X2, CYSTOCELE, RECTOCELE REPAIR Past Anesthesia/Blood Transfusion Reactions: Postoperative Nausea & Vomiting ( PONV) Past Psychological History: Anxiety Additional Psychological History / Comment(s): . Smoking Status: Never smoker Past Alcohol Use History: None Reported Past Drug Use History: None Reported - Past Family History Father Family Medical History: Cancer, Congestive Heart Failure (CHF), Coronary Artery Disease (CAD), Hypertension, Myocardial Infarction ([place]), Renal Disease Additional Family Medical History / Comment(s): KIDNEY/COLON CA Mother Family Medical History: Asthma, Hypertension, Osteoarthritis (OA) Medications and Allergies Home Medications Medication Instructions Recorded Confirmed Type Aspirin 81 mg PO HS 01/18/16 10/15/16 History Lisinopril [Prinivil] 20 mg PO HS 08/06/16 10/15/16 History ALPRAZolam [Xanax] 1 mg PO BID PRN 09/21/16 10/15/16 History Allergies Allergy/AdvReac Type Severity Reaction Status Date / Time No Known Allergies Allergy Verified 10/15/16 14:27 Physical Exam Vitals: Vital Signs Temp Pulse Pulse Resp BP BP Pulse Ox 10/16/16 07:00 97.6 F 82 18 141/84 97 10/16/16 00:00 65 18 10/15/16 22:08 97.4 F L 65 18 143/82 95 10/15/16 18:00 98 F 72 16 168/90 99 Intake and Output 10/15/16 10/16/16 10/16/16 22:59 06:59 14:59 Intake Total 700 1400 Balance 700 1400 Intake: IV 700 1400 Invasive Line 1 700 1400 Other: # Voids 1 Weight 81 kg General appearance: The patient is alert, oriented, in no acute distress. HET: Head is normocephalic and atraumatic. Pupils are equal and reactive. Oropharynx is clear without lesions. Neck: Supple without lymphadenopathy. Trachea midline. Heart: S1 S2. Regular rate and rhythm. Lungs: No crackles or wheezes are heard. Abdomen: Soft, mild midepigastric tenderness, nondistended with bowel sounds. No peritoneal signs. No palpable organomegaly or masses. Extremities: Normal skin color and turgor. No cyanosis, rash, ulceration, clubbing, or edema. Radial and pedal pulses are 2/4 bilaterally. Neurological: No focal deficits. Strength and sensation are grossly intact. Results CBC & Chem 7: 10/15/16 14:52 10/16/16 07:50 Labs: Abnormal Lab Results - Last 24 Hours (Table) 10/16/16 Range/Units 07:50 Total Bilirubin 1.8 H (0.2-1.3) mg/dL Assessment and Plan (1) Epigastric pain Narrative/Plan: She has chronic nausea for several months duration with history of cholecystectomy cholelithiasis and choledocholithiasis in 2014 status post ERCP August 2016 with no evidence of filling defect however sphincterotomy was performed. She had a recent hospital physician in July 2016 with acute pancreatitis and elevated liver enzymes consistent with suspected passage of microlithiasis. Presently the etiology of her epigastric pain and nausea is unclear. Possible hepatobiliary in origin possible gastritis peptic ulcer disease. Status: Acute (2) Hyperbilirubinemia Status: Acute Plan: 1. Recommend Protonix 40 mg IV today followed by Omperazole 20 mg daily on discharge to see if this helps her epigastric pain. 2. We'll proceed with US abdomen today if negative agreeable for discharge. Patient is inquiring about discharge either today or tomorrow. 3. Will allow clear liquid diet after US and advance as tolerated. Consideration for EGD was discussed as well as an MRI abdomen; this can be performed as an outpatient within the next week. She has an appointment to see Dr. Cadena on 10/19/2016. We'll continue to follow closely with you. Will obtain pancreatic markers CA 19-9 and CEA to be thorough along with JOSE ANTONIO and IgG subclass 4 for autoimmune pancreatitis evaluation. Thank you for this kind referral and the opportunity to participate in the care of your patient. This consultation was discussed with Dr. Enriquez. The impression and plan of care have been directed as dictated.
--- NOTE | 2016-10-16 10:34 | US ---
EXAMINATION TYPE: US abdomen limited DATE OF EXAM: 10/16/2016 10:16 AM COMPARISON: Previous ultrasound exam 18 May 2014, CT abdomen pelvis 02/28/2017 CLINICAL HISTORY: epigastric pain. Epigastric pain, nausea x 2 months, cholecystectomy EXAM MEASUREMENTS: Liver Length: 14.0 cm Gallbladder Wall: surgically absent CBD: 0.5 cm Right Kidney: 10.1 x 5.3 x 5.1 cm Pancreas: limited evaluation due to overlying bowel content Liver: slightly heterogeneous Gallbladder: Surgically absent CBD: visualized portions appear wnl Right Kidney: no evidence of hydronephrosis or mass There is no ascites evident. Liver shows a coarse echotexture. IMPRESSION: Postop change, correlate for possible fatty position of the liver.
[2016-10-16] MEDS: ONDANSETRON 4 MG/2 ML VIAL IVP PRN (13:27)
--- NOTE | 2016-10-16 14:24 | P.HPIM ---
History of Present Illness H&P Date: 10/16/16 Chief Complaint: Epigastric pain This is a medical H&P and discharge summary combined: Patient is a 56-year-old female, patient of Dr. Rickie Brenner in the outpatient setting, also follows with GI service. Medical history significant for GERD, hypertension, anxiety, syncope, and pancreatitis. Apparently patient underwent ERCP in August [address] Sanders is no evidence of filling defect or retained bile duct stone. Patient presented to the emergency department with complains of chronic epigastric pain for more than 6 months associated with nausea. Patient reports that epigastric pain is mostly present after eating. Patient states she can only eat small amounts before she becomes nauseated. Patient describes pain as achy, sharp, and occasional burning. No history of fevers, vomiting, shortness of breath, chest pain, diarrhea, constipation. No history of hematochezia or melena. Admission labs including liver enzymes within normal limits. No evidence of leukocytosis. Bilirubin did increase to 1.8 this morning. Ultrasound of abdomen with evidence of possible fatty position of the liver. Common bile duct 0.5 cm. Patient has been evaluated by gastrointestinal service who has cleared patient for discharge with follow-up in the outpatient setting. Patient has been started on Prilosec. Past Medical History Past Medical History: Chest Pain / Angina, GERD/Reflux, Hypertension, Osteoarthritis (OA), Syncope Additional Past Medical History / Comment(s): Pancreatitis History of Any Multi-Drug Resistant Organisms: None Reported Past Surgical History: Cholecystectomy, Heart Catheterization, Hysterectomy, Tubal Ligation Additional Past Surgical History / Comment(s): had PARTIAL hysterectomy, HIATAL HERNIA REPAIR, ERCP, BLADDER SUSPENSION X2, CYSTOCELE, RECTOCELE REPAIR Past Anesthesia/Blood Transfusion Reactions: Postoperative Nausea & Vomiting ( PONV) Past Psychological History: Anxiety Additional Psychological History / Comment(s): . Smoking Status: Never smoker Past Alcohol Use History: None Reported Past Drug Use History: None Reported - Past Family History Father Family Medical History: Cancer, Congestive Heart Failure (CHF), Coronary Artery Disease (CAD), Hypertension, Myocardial Infarction ([place]), Renal Disease Additional Family Medical History / Comment(s): KIDNEY/COLON CA Mother Family Medical History: Asthma, Hypertension, Osteoarthritis (OA) Medications and Allergies Home Medications Medication Instructions Recorded Confirmed Type Aspirin 81 mg PO HS 01/18/16 10/15/16 History Lisinopril [Prinivil] 20 mg PO HS 08/06/16 10/15/16 History ALPRAZolam [Xanax] 1 mg PO BID PRN 09/21/16 10/15/16 History Allergies Allergy/AdvReac Type Severity Reaction Status Date / Time No Known Allergies Allergy Verified 10/15/16 14:27 Physical Exam Vitals: Vital Signs Temp Pulse Pulse Resp BP BP Pulse Ox 10/16/16 07:00 97.6 F 82 18 141/84 97 10/16/16 00:00 65 18 10/15/16 22:08 97.4 F L 65 18 143/82 95 10/15/16 18:00 98 F 72 16 168/90 99 Intake and Output 10/15/16 10/16/16 10/16/16 22:59 06:59 14:59 Intake Total 700 1400 Balance 700 1400 Intake: IV 700 1400 Invasive Line 1 700 1400 Other: # Voids 1 Weight 81 kg GENERAL: Pt awake and alert, well-appearing, well-nourished, and in no acute distress. HEAD: Atraumatic, normocephalic. EYES: Pupils equal, round, and reactive to light, extraocular movements intact, sclera anicteric, conjunctiva are normal. ENT: Oropharynx clear without exudates. Moist mucous membranes. NECK:Normal range of motion, supple without lymphadenopathy or JVD. LUNGS: Breath sounds clear to auscultation bilaterally. No wheezes, rales, or rhonchi. HEART: Heart S1, S2, no S3 or S4. Regular rate and rhythm. No murmurs, rubs or gallops. ABDOMEN: Soft, mild epigastric tenderness, nondistended, normoactive bowel sounds. No guarding, no rebound. No masses or organomegaly appreciated. EXTREMITIES: 2+ peripheral pulses. No edema, clubbing or cyanosis. No calf tenderness. NEUROLOGICAL: Pt oriented x 3. Cranial nerves II through XII grossly intact. Strength and sensation grossly intact. PSYCH: Normal mood, normal affect. SKIN: Warm, dry, intact. Normal turgor. No rashes or lesions. Results CBC & Chem 7: 10/15/16 14:52 10/16/16 07:50 Labs: Abnormal Lab Results - Last 24 Hours (Table) 10/16/16 Range/Units 07:50 Total Bilirubin 1.8 H (0.2-1.3) mg/dL US - abdomen: report reviewed Thrombosis Risk Factor Assmnt - DVT/VTE Prophylaxis DVT/VTE Prophylaxis: Low risk, early ambulation encouraged - Choose All That Apply Any of the Below Risk Factors Present?: Yes Each Factor Represents 1 point: Obesity (BMI >25) Other Risk Factors: No Other congenital or acquired thrombophilia - If yes, enter type in comment: No Thrombosis Risk Factor Assessment Total Risk Factor Score: 1 Thrombosis Risk Factor Assessment Level: Low Risk Assessment and Plan Plan: Impression and plan: 1. Chronic epigastric pain associated with nausea without vomiting, etiology unknown. Continue Bentyl. Gastrointestinal service on consult, recommendations noted. 2. Hyperbilirubinemia. Patient to follow-up with Dr. Cadena for consideration of EGD as well as MRI of abdomen next week. 3. GERD. Continue omeprazole. 4. Hypertension. Continue lisinopril. 5. Acute pancreatitis with history of pancreatitis status post ERCP microlithiasis. Advance diet as tolerated. Continue supportive treatment and pain management. 6. History of cholecystectomy, cholelithiasis, and choledocholithiasis in 2014 status post ERCP August 2016 with no evidence of filling defect; however sphincterotomy was performed. 7. Anxiety. Continue Xanax. Discharge diagnoses: Chronic epigastric pain, etiology unknown. Hyperbilirubinemia. GERD. Hypertension. Acute pancreatitis with history of pancreatitis. History of cholecystectomy, cholelithiasis, and choledocholithiasis. Anxiety. The above impression and plan have been discussed and directed by Dr. Brenner. Rosemary CHEW acting as scribe for Dr. Brenner.
[2016-10-17 11:54] LABS: IgG Subclass 3 32.4 mg/dL (11.0-85.0); IgG Subclass 4 83.2 mg/dL (3.0-175.0)
[2016-10-17 19:36] LABS: ANA w/Reflex to Titer NEGATIVE (NEGATIVE)
== END 2016-10-16 13:50 | disposition home or self-care (01) | DRG 439 ==
LOC: EC 13:25 → 5MS5E 17:40
PROVIDERS: ADMIT Family Medicine; ATTEND Family Medicine
DX: K85.90 Acute pancreatitis without necrosis or infection, unspecified (principal); R17 Unspecified jaundice; I10 Essential (primary) hypertension; K21.9 Gastro-esophageal reflux disease without esophagitis; F41.9 Anxiety disorder, unspecified; M19.91 Primary osteoarthritis, unspecified site; Z90.49 Acquired absence of other specified parts of digestive tract; Z90.710 Acquired absence of both cervix and uterus; Z79.82 Long term (current) use of aspirin; Z79.899 Other long term (current) drug therapy; Z80.0 Family history of malignant neoplasm of digestive organs; Z82.49 Family history of ischemic heart disease and other diseases of the circulatory system
CPT/HCPCS: 36415; 76705; 80053; 81001; 82150; 82378; 82550; 82553; 82787; 83690; 84484; 85025; 86038; 86301; 87086; 96361; 96374; 96375; 96376; 99285

== ENCOUNTER → 2016-10-19 | Outpatient (CLI) | payer OTHER ==
[2016-10-19 12:11] LABS: ALT 34 U/L (9-52); AST 25 U/L (14-36); Alkaline Phosphatase 80 U/L (38-126); Anion Gap 10 mmol/L; Blood Urea Nitrogen 10 mg/dL (7-17); Calcium 9.8 mg/dL (8.4-10.2); Carbon Dioxide 29 mmol/L (22-30); Chloride 105 mmol/L (98-107); Glucose 90 mg/dL (74-99); Non-African American GFR(MDRD) >60 (>60 ml/min/1.73 sqM); Potassium 4.9 mmol/L (3.5-5.1); Sodium 144 mmol/L (137-145); Total Bilirubin 0.8 mg/dL (0.2-1.3)
== END | disposition home or self-care (01) ==
LOC: LABWHC1 11:22
PROVIDERS: ATTEND Nurse Practitioner
DX: E80.6 Other disorders of bilirubin metabolism (principal)
CPT/HCPCS: 36415; 80053

== ENCOUNTER 2016-11-23 11:06 | Emergency (ER) | payer OTHER ==
[2016-11-23 11:23] VITALS: RESP 18
[2016-11-23] MEDS ORDERED: DIAZEPAM 5 MG TAB PO STA (11:57)
--- NOTE | 2016-11-23 12:03 | ED ---
General Adult HPI - General Chief complaint: Back Pain/Injury Stated complaint: back pain Time Seen by Provider: 11/23/16 11:45 Source: patient, RN notes reviewed Mode of arrival: ambulatory Limitations: no limitations - History of Present Illness Initial comments: Patient 56-year-old female who presents emergency room today with chief complaint of increased lower back pain. She does admit that she's had some tenderness to the lower back to both right and left sides over the last 2 days. Denies any specific injury or trauma. Does admit that it's worse with certain movements. Strength is an example going from a seated to a standing position. She denies any bowel or bladder incontinence retention. She denies any saddle anesthesia. She does admit to some pain that seems to radiate into the hips bilaterally. Patient denies any other complaints. States she's been using ibuprofen and also Craig at home with little relief of symptoms. Patient denies any recent fever, chills, shortness of breath, chest pain, abdominal pain , nausea or vomiting, dysuria or hematuria, constipation or diarrhea, headaches or visual changes, or any other complaints. - Related Data Home Medications Medication Instructions Recorded Confirmed Aspirin 81 mg PO HS 01/18/16 10/15/16 Lisinopril [Prinivil] 20 mg PO HS 08/06/16 10/15/16 ALPRAZolam [Xanax] 1 mg PO BID PRN 09/21/16 10/15/16 Previous Rx's Medication Instructions Recorded Hydrocodone/Acetaminophen [Craig 1 tab PO Q6HR PRN #20 tab 09/21/16 5-325] Ondansetron Odt [Zofran ODT] 4 mg PO Q8HR PRN #10 tab 09/21/16 Dicyclomine [Bentyl] 20 mg PO QID #15 tablet 10/12/16 Omeprazole 20 mg PO DAILY #30 cap 10/16/16 Cyclobenzaprine [Flexeril] 10 mg PO TID #20 tab 11/23/16 Allergies Allergy/AdvReac Type Severity Reaction Status Date / Time No Known Allergies Allergy Verified 11/23/16 11:23 Review of Systems ROS Statement: Those systems with pertinent positive or pertinent negative responses have been documented in the HPI. ROS Other: All systems not noted in ROS Statement are negative. Past Medical History Past Medical History: Chest Pain / Angina, GERD/Reflux, Hypertension, Osteoarthritis (OA), Syncope Additional Past Medical History / Comment(s): Pancreatitis History of Any Multi-Drug Resistant Organisms: None Reported Past Surgical History: Cholecystectomy, Heart Catheterization, Hysterectomy, Tubal Ligation Additional Past Surgical History / Comment(s): had PARTIAL hysterectomy, HIATAL HERNIA REPAIR, ERCP, BLADDER SUSPENSION X2, CYSTOCELE, RECTOCELE REPAIR Past Anesthesia/Blood Transfusion Reactions: Postoperative Nausea & Vomiting ( PONV) Past Psychological History: Anxiety Additional Psychological History / Comment(s): . Smoking Status: Never smoker Past Alcohol Use History: None Reported Past Drug Use History: None Reported - Past Family History Father Family Medical History: Cancer, Congestive Heart Failure (CHF), Coronary Artery Disease (CAD), Hypertension, Myocardial Infarction ([place]), Renal Disease Additional Family Medical History / Comment(s): KIDNEY/COLON CA Mother Family Medical History: Asthma, Hypertension, Osteoarthritis (OA) General Exam - General Exam Comments Initial Comments: General: The patient is awake and alert, in no distress, and does not appear acutely ill. Eye: Pupils are equal, round and reactive to light, extra-ocular movements are intact. No nystagmus. There is normal conjunctiva bilaterally. No signs of icterus. Ears, nose, mouth and throat: There are moist mucous membranes and no oral lesions. Neck: The neck is supple, there is no tenderness or JVD. Cardiovascular: There is a regular rate and rhythm. No murmur, rub or gallop is appreciated. Respiratory: Lungs are clear to auscultation, respirations are non-labored, breath sounds are equal. No wheezes, stridor, rales, or rhonchi. Gastrointestinal: Soft, non-distended, non-tender abdomen without masses or organomegaly noted. There is no rebound or guarding present. No CVA tenderness. Bowel sounds are unremarkable. Musculoskeletal: Normal appearance of the thoracic, lumbar spine. Step-offs forms appreciated. Patient does have no tenderness midline. Increased paravertebral tenderness both on the right and left side of the lumbar spine. Strength 5/5. Sensation intact. Pulses equal bilaterally 2+. Neurological: A&O x 3. CN II-XII intact, There are no obvious motor or sensory deficits. Coordination appears grossly intact. Speech is normal. Skin: Skin is warm and dry and no rashes or lesions are noted. Psychiatric: Cooperative, appropriate mood & affect, normal judgment. Limitations: no limitations Course Vital Signs 11/23/16 11:21 Temperature 97.1 F L Pulse Rate 77 Respiratory 18 Rate Blood Pressure 135/81 O2 Sat by Pulse 100 Oximetry - Reevaluation(s) Reevaluation #1: 11/23/16 12:47 Patient reexamined at this time shows no signs of distress. She was given Valium for her back pain. She states she's been no improvement. During initial HPI patient never talked about any abdominal pain. She asked question what about my abdominal pain. Patient does admit that the pain starts in the back radiates around to the front of the abdomen. She states she is unsure if this is what causing her leg pain when she tried to get up. I discussed with patient that we can check work and a urine sample. She is in agreement with this at this time. Medical Decision Making - Medical Decision Making Case discussed in detail with attending physician Dr. Kitchen. Patient reexamined at this time shows no signs of distress. Patient resting comfortably. X-rays reviewed. No evidence of acute fracture dislocation of the back. Does show scattered bowel gas. Was discussed with patient about possible enema here and she does admit that she takes Craig at home for her chronic abdominal pain. Advised patient this may be the cause of some these symptoms and advised patient that she is having low back pain that does seem to radiate into the legs and this is concerning she should follow-up family doctor for further evaluation and possible MRI. At this time was offered to do enema here in the emergency room to see if there is any relief of the pain and symptoms. She has declined. Patient states she would try laxative. Patient given a laxative go home with. Patient will be discharged home. She is advised faulted family doctor tomorrow. Advised return if any symptoms increase or worsen or for any other concerns. - Lab Data Result diagrams: 11/23/16 13:00 11/23/16 13:00 Lab Results 11/23/16 11/23/16 11/23/16 Range/Units 13:00 13:00 13:00 WBC 6.9 (3.8-10.6) k/uL RBC 4.71 (3.80-5.40) m/uL Hgb 13.5 (11.4-16.0) gm/dL Hct 42.1 (34.0-46.0) % MCV 89.3 (80.0-100.0) fL MCH 28.6 (25.0-35.0) pg MCHC 32.1 (31.0-37.0) g/dL RDW 13.1 (11.5-15.5) % Plt Count 311 (150-450) k/uL Neutrophils % 59 % Lymphocytes % 30 % Monocytes % 6 % Eosinophils % 2 % Basophils % 1 % Neutrophils # 4.0 (1.3-7.7) k/uL Lymphocytes # 2.1 (1.0-4.8) k/uL Monocytes # 0.4 (0-1.0) k/uL Eosinophils # 0.1 (0-0.7) k/uL Basophils # 0.1 (0-0.2) k/uL Sodium 142 (137-145) mmol/L Potassium 5.4 H (3.5-5.1) mmol/L Chloride 106 (98-107) mmol/L Carbon Dioxide 23 (22-30) mmol/L Anion Gap 13 mmol/L BUN 13 (7-17) mg/dL Creatinine 0.50 L (0.52-1.04) mg/dL Est GFR (MDRD) Af Amer >60 (>60 ml/min/1.73 sqM) Est GFR (MDRD) Non-Af >60 (>60 ml/min/1.73 sqM) Glucose 90 (74-99) mg/dL Calcium 10.2 (8.4-10.2) mg/dL Total Bilirubin 1.7 H (0.2-1.3) mg/dL AST 44 H (14-36) U/L ALT 46 (9-52) U/L Alkaline Phosphatase 94 (38-126) U/L Total Protein 8.0 (6.3-8.2) g/dL Albumin 4.6 (3.5-5.0) g/dL Amylase 50 (30-110) U/L Lipase 68 (23-300) U/L Urine Color Yellow Urine Appearance Clear (Clear) Urine pH 6.0 (5.0-8.0) Ur Specific [place] 1.022 (1.001-1.035) Urine Protein Trace H (Negative) Urine Glucose (UA) Negative (Negative) Urine Ketones Negative (Negative) Urine Blood Small H (Negative) Urine Nitrite Negative (Negative) Urine Bilirubin Negative (Negative) Urine Urobilinogen 2.0 (<2.0) mg/dL Ur Leukocyte Esterase Negative (Negative) Urine RBC 4 (0-5) /hpf Urine WBC 2 (0-5) /hpf Ur Squamous Epith Cells 1 (0-4) /hpf Urine Mucus Many H (None) /hpf Disposition Clinical Impression: Acute low back pain, Abdominal pain Disposition: HOME SELF-CARE Condition: Good Instructions: Acute Low Back Pain (ED) Additional Instructions: Please use medication as discussed. Please follow-up with family doctor in the next 2 days of symptoms have not improved. Please return to emergency room if the symptoms increase or worsen or for any other concerns. Prescriptions: Cyclobenzaprine [Flexeril] 10 mg PO TID #20 tab Referrals: Rickie Brenner DO [Primary Care Provider] - 1-2 days Time of Disposition: 14:03
--- NOTE | 2016-11-23 12:20 | XR ---
EXAMINATION TYPE: XR lumbar spine 2 or 3V DATE OF EXAM: 11/23/2016 12:12 PM COMPARISON: NONE HISTORY: Low back pain TECHNIQUE: 3 views FINDINGS: Vertebra have normal alignment. Disc spaces are fairly normal. Posterior elements are intac t. There is no compression fracture. Sacroiliac joints appear normal. IMPRESSION: Negative lumbar spine exam.
[2016-11-23 13:15] LABS: Appearance,Urine Clear (Clear); Basophils # (A) 0.1 k/uL (0-0.2); Basophils % (A) 1 %; Bilirubin,Urine Negative (Negative); CH 28.5; CHCM 32.1; Eosinophils # (A) 0.1 k/uL (0-0.7); Eosinophils % (A) 2 %; Glucose,Urine (UA) Negative (Negative); HCT 42.1 % (34.0-46.0); HDW 2.28; HGB 13.5 gm/dL (11.4-16.0); Ketones,Urine Negative (Negative); Leukocyte Esterase,Urine Negative (Negative); Luc # (Auto) 0.17; Luc % (Auto) 2; Lymphocytes # (A) 2.1 k/uL (1.0-4.8); Lymphocytes % (A) 30 %; MCH 28.6 pg (25.0-35.0); MCHC 32.1 g/dL (31.0-37.0); MCV 89.3 fL (80.0-100.0); Mean Platelet Volume 6.9; Monocytes # (A) 0.4 k/uL (0-1.0); Monocytes % (A) 6 %; Mucus,Urine Many /hpf; Neutrophils % (A) 59 %; Nitrite,Urine Negative (Negative); Particle Count 7144; Protein,Urine Trace (Negative); RBC 4.71 m/uL (3.80-5.40); RBC,Urine 4 /hpf (0-5); RDW 13.1 % (11.5-15.5); Specific Gravity,Urine 1.022 (1.001-1.035); Squamous Epithelial Cell,Urine 1 /hpf (0-4); UA Billing (MACRO vs. MICRO) MICRO; WBC 6.9 k/uL (3.8-10.6); WBC (Perox) 6.75; WBC,Urine 2 /hpf (0-5)
[2016-11-23 13:26] LABS: Amylase 50 U/L (30-110); Anion Gap 13 mmol/L; Calcium 10.2 mg/dL (8.4-10.2); Carbon Dioxide 23 mmol/L (22-30); Chloride 106 mmol/L (98-107); Glucose 90 mg/dL (74-99); Non-African American GFR(MDRD) >60 (>60 ml/min/1.73 sqM); Sodium 142 mmol/L (137-145); Total Bilirubin 1.7 mg/dL (0.2-1.3)
[2016-11-23] MEDS ORDERED: HYDROmorphone 1 MG/ML 1 ML SYRINGE IVP STA (13:34)
[2016-11-23] MEDS ORDERED: ONDANSETRON 4 MG/2 ML VIAL IVP STA (13:34)
[2016-11-23 13:37] LABS: ALT 46 U/L (9-52); AST 44 U/L (14-36); Alkaline Phosphatase 94 U/L (38-126); Blood Urea Nitrogen 13 mg/dL (7-17); Potassium 5.4 mmol/L (3.5-5.1)
[2016-11-23] MEDS ORDERED: MAGNESIUM CITRATE 296 ML BOTTLE PO ONE (14:04)
[2016-11-23 14:23] VITALS: BP 115/72; PULSE 68; TEMP 98.2
== END 2016-11-23 14:23 | disposition home or self-care (01) ==
LOC: EC 11:06
DX: M54.5 Low back pain (principal); G89.29 Other chronic pain; R10.9 Unspecified abdominal pain; I10 Essential (primary) hypertension; Z90.49 Acquired absence of other specified parts of digestive tract; Z95.5 Presence of coronary angioplasty implant and graft; Z79.82 Long term (current) use of aspirin; Z79.899 Other long term (current) drug therapy
CPT/HCPCS: 99283; 96374; 96375; 36415; 80053; 82150; 83690; 85025; 81001; 72100; J2405; J1170

== ENCOUNTER 2017-03-15 00:01 | Emergency (ER) | payer OTHER ==
[2017-03-15] MEDS ORDERED: RX INFO: IV CONTRAST WAS GIVEN 1 EACH MISC MISCELLANE PRN (00:21)
[2017-03-15] MEDS ORDERED: SODIUM CHLORIDE 0.9% 1,000 ML IV STA ×2 (00:21)
[2017-03-15] MEDS ORDERED: MORPHINE SULFATE 4 MG/ML SYRINGE IV STA (00:21)
--- NOTE | 2017-03-15 00:29 | ED ---
General Adult HPI - General Chief complaint: Chest Pain Stated complaint: Chest Tightness Time Seen by Provider: 03/15/17 00:19 Source: patient, family, RN notes reviewed, old records reviewed Mode of arrival: wheelchair Limitations: no limitations - History of Present Illness Initial comments: This is a 57-year-old female here with nonspecific chest pain epigastric chest pain related to back. Patient does state she has history of cholecystectomy. Patient denies fever no cough no congestion. Patient states pain is just started tonight is been continuous with no modifying factors for pain. - Related Data Home Medications Medication Instructions Recorded Confirmed Aspirin 81 mg PO HS 01/18/16 03/15/17 Lisinopril [Prinivil] 20 mg PO HS 08/06/16 03/15/17 ALPRAZolam [Xanax] 1 mg PO BID PRN 09/21/16 03/15/17 Allergies Allergy/AdvReac Type Severity Reaction Status Date / Time No Known Allergies Allergy Verified 03/15/17 00:05 Review of Systems ROS Statement: Those systems with pertinent positive or pertinent negative responses have been documented in the HPI. ROS Other: All systems not noted in ROS Statement are negative. Past Medical History Past Medical History: Chest Pain / Angina, GERD/Reflux, Hypertension, Osteoarthritis (OA), Syncope Additional Past Medical History / Comment(s): Pancreatitis History of Any Multi-Drug Resistant Organisms: None Reported Past Surgical History: Cholecystectomy, Heart Catheterization, Hysterectomy, Tubal Ligation Additional Past Surgical History / Comment(s): had PARTIAL hysterectomy, HIATAL HERNIA REPAIR, ERCP, BLADDER SUSPENSION X2, CYSTOCELE, RECTOCELE REPAIR Past Anesthesia/Blood Transfusion Reactions: Postoperative Nausea & Vomiting ( PONV) Past Psychological History: Anxiety Smoking Status: Never smoker Past Alcohol Use History: None Reported Past Drug Use History: None Reported - Past Family History Father Family Medical History: Cancer, Congestive Heart Failure (CHF), Coronary Artery Disease (CAD), Hypertension, Myocardial Infarction ([place]), Renal Disease Additional Family Medical History / Comment(s): KIDNEY/COLON CA Mother Family Medical History: Asthma, Hypertension, Osteoarthritis (OA) General Exam Limitations: no limitations General appearance: alert, in no apparent distress Head exam: Present: atraumatic, normocephalic, normal inspection Eye exam: Present: normal appearance, PERRL, EOMI. Absent: scleral icterus, conjunctival injection, periorbital swelling ENT exam: Present: normal exam, mucous membranes moist Neck exam: Present: normal inspection. Absent: tenderness, meningismus, lymphadenopathy Respiratory exam: Present: normal lung sounds bilaterally. Absent: respiratory distress, wheezes, rales, rhonchi, stridor Cardiovascular Exam: Present: regular rate, normal rhythm, normal heart sounds. Absent: systolic murmur, diastolic murmur, rubs, gallop, clicks GI/Abdominal exam: Present: soft, normal bowel sounds. Absent: distended, tenderness, guarding, rebound, rigid Extremities exam: Present: normal inspection, full ROM, normal capillary refill. Absent: tenderness, pedal edema, joint swelling, calf tenderness Back exam: Present: normal inspection Neurological exam: Present: alert, oriented X3, CN II-XII intact Psychiatric exam: Present: normal affect, normal mood Skin exam: Present: warm, dry, intact, normal color. Absent: rash Course Vital Signs 03/15/17 03/15/17 03/15/17 00:02 01:45 02:50 Temperature 97 F L 97.1 F L Pulse Rate 84 87 69 Respiratory 18 18 16 Rate Blood Pressure 223/104 137/83 151/78 O2 Sat by Pulse 100 98 95 Oximetry - Reevaluation(s) Reevaluation #1: Patient with adequate chest pain control at this time, EKG Findings - EKG Comments: EKG Findings:: EKG shows normal sinus rhythm at 75, NH 160, QRS 66, QTC 439 Medical Decision Making - Medical Decision Making 57 female chest pain. Patient has history of chest pain, CT CT negative, EKG and troponin are negative. Patient's pain is now controlled and patient can be discharged home - Lab Data Result diagrams: 03/15/17 00:28 03/15/17 00:28 Lab Results 03/15/17 03/15/17 03/15/17 Range/Units 00:28 00:28 00:28 WBC 7.6 (3.8-10.6) k/uL RBC 4.52 (3.80-5.40) m/uL Hgb 13.1 (11.4-16.0) gm/dL Hct 39.5 (34.0-46.0) % MCV 87.4 (80.0-100.0) fL MCH 28.9 (25.0-35.0) pg MCHC 33.1 (31.0-37.0) g/dL RDW 13.2 (11.5-15.5) % Plt Count 356 (150-450) k/uL Neutrophils % 53 % Lymphocytes % 34 % Monocytes % 7 % Eosinophils % 3 % Basophils % 1 % Neutrophils # 4.0 (1.3-7.7) k/uL Lymphocytes # 2.6 (1.0-4.8) k/uL Monocytes # 0.6 (0-1.0) k/uL Eosinophils # 0.2 (0-0.7) k/uL Basophils # 0.1 (0-0.2) k/uL PT (9.0-12.0) sec INR (<1.2) APTT (22.0-30.0) sec Sodium 142 (137-145) mmol/L Potassium 4.3 (3.5-5.1) mmol/L Chloride 108 H (98-107) mmol/L Carbon Dioxide 23 (22-30) mmol/L Anion Gap 11 mmol/L BUN 11 (7-17) mg/dL Creatinine 0.60 (0.52-1.04) mg/dL Est GFR (MDRD) Af Amer >60 (>60 ml/min/1.73 sqM) Est GFR (MDRD) Non-Af >60 (>60 ml/min/1.73 sqM) Glucose 76 (74-99) mg/dL Calcium 9.8 (8.4-10.2) mg/dL Magnesium 2.0 (1.6-2.3) mg/dL Total Bilirubin 0.9 (0.2-1.3) mg/dL AST 44 H (14-36) U/L ALT 58 H (9-52) U/L Alkaline Phosphatase 101 (38-126) U/L Total Creatine Kinase 85 (30-135) U/L CK-MB (CK-2) 1.3 (0.0-2.4) ng/mL CK-MB (CK-2) Rel Index 1.5 Troponin I <0.012 (0.000-0.034) ng/mL Total Protein 7.6 (6.3-8.2) g/dL Albumin 4.3 (3.5-5.0) g/dL Lipase 69 (23-300) U/L 09/18/17 Range/Units 00:28 WBC (3.8-10.6) k/uL RBC (3.80-5.40) m/uL Hgb (11.4-16.0) gm/dL Hct (34.0-46.0) % MCV (80.0-100.0) fL MCH (25.0-35.0) pg MCHC (31.0-37.0) g/dL RDW (11.5-15.5) % Plt Count (150-450) k/uL Neutrophils % % Lymphocytes % % Monocytes % % Eosinophils % % Basophils % % Neutrophils # (1.3-7.7) k/uL Lymphocytes # (1.0-4.8) k/uL Monocytes # (0-1.0) k/uL Eosinophils # (0-0.7) k/uL Basophils # (0-0.2) k/uL PT 9.8 (9.0-12.0) sec INR 1.0 (<1.2) APTT 23.6 (22.0-30.0) sec Sodium (137-145) mmol/L Potassium (3.5-5.1) mmol/L Chloride (98-107) mmol/L Carbon Dioxide (22-30) mmol/L Anion Gap mmol/L BUN (7-17) mg/dL Creatinine (0.52-1.04) mg/dL Est GFR (MDRD) Af Amer (>60 ml/min/1.73 sqM) Est GFR (MDRD) Non-Af (>60 ml/min/1.73 sqM) Glucose (74-99) mg/dL Calcium (8.4-10.2) mg/dL Magnesium (1.6-2.3) mg/dL Total Bilirubin (0.2-1.3) mg/dL AST (14-36) U/L ALT (9-52) U/L Alkaline Phosphatase (38-126) U/L Total Creatine Kinase (30-135) U/L CK-MB (CK-2) (0.0-2.4) ng/mL CK-MB (CK-2) Rel Index Troponin I (0.000-0.034) ng/mL Total Protein (6.3-8.2) g/dL Albumin (3.5-5.0) g/dL Lipase (23-300) U/L - Radiology Data Radiology results: report reviewed (CTA chest, CT pelvis negative for acute disease ), image reviewed Disposition Clinical Impression: Chest pain Disposition: HOME SELF-CARE Condition: Good Instructions: Chest Pain (ED) Referrals: Rickie Brenner DO [Primary Care Provider] - 1-2 days
[2017-03-15] MEDS ORDERED: LORazepam 2 MG/ML SYRINGE IV STA (00:47)
[2017-03-15] MEDS ORDERED: PANTOPRAZOLE 40 MG/10 ML VIAL IVP STA (00:47)
[2017-03-15] MEDS ORDERED: ONDANSETRON 4 MG/2 ML VIAL IVP STA (00:47)
[2017-03-15 01:03] LABS: Basophils # (A) 0.1 k/uL (0-0.2); Basophils % (A) 1 %; CH 28.5; CHCM 32.7; Eosinophils # (A) 0.2 k/uL (0-0.7); Eosinophils % (A) 3 %; HCT 39.5 % (34.0-46.0); HDW 2.42; HGB 13.1 gm/dL (11.4-16.0); Luc # (Auto) 0.19; Luc % (Auto) 3; Lymphocytes # (A) 2.6 k/uL (1.0-4.8); Lymphocytes % (A) 34 %; MCH 28.9 pg (25.0-35.0); MCHC 33.1 g/dL (31.0-37.0); MCV 87.4 fL (80.0-100.0); Mean Platelet Volume 6.5; Monocytes # (A) 0.6 k/uL (0-1.0); Monocytes % (A) 7 %; Neutrophils % (A) 53 %; RBC 4.52 m/uL (3.80-5.40); RDW 13.2 % (11.5-15.5); WBC 7.6 k/uL (3.8-10.6); WBC (Perox) 7.56
[2017-03-15 01:04] LABS: Partial Thromboplastin Time 23.6 sec (22.0-30.0); Prothrombin Time 9.8 sec (9.0-12.0)
[2017-03-15 01:06] LABS: ALT 58 U/L (9-52); AST 44 U/L (14-36); Alkaline Phosphatase 101 U/L (38-126); Anion Gap 11 mmol/L; Blood Urea Nitrogen 11 mg/dL (7-17); Calcium 9.8 mg/dL (8.4-10.2); Carbon Dioxide 23 mmol/L (22-30); Chloride 108 mmol/L (98-107); Glucose 76 mg/dL (74-99); Non-African American GFR(MDRD) >60 (>60 ml/min/1.73 sqM); Potassium 4.3 mmol/L (3.5-5.1); Sodium 142 mmol/L (137-145); Total Bilirubin 0.9 mg/dL (0.2-1.3); Total Protein 7.6 g/dL (6.3-8.2)
[2017-03-15 01:15] LABS: Creatine Kinase 85 U/L (30-135)
[2017-03-15 01:28] LABS: Creatine Kinase MB 1.3 ng/mL (0.0-2.4); Troponin I <0.012 ng/mL (0.000-0.034)
[2017-03-15 01:46] VITALS: TEMP 97.1
--- NOTE | 2017-03-15 02:29 | CT ---
EXAM: CT Abdomen and Pelvis With Intravenous Contrast CLINICAL HISTORY: Reason: Pain TECHNIQUE: Axial computed tomography images of the abdomen and pelvis with intravenous contrast. CTDI is 152 mGy and DLP is 594 mGy-cm. This CT exam was performed using one or more of the following dose reduction techniques: automated exposure control, adjustment of the mA and/or kV according to patient size, and/or use of iterative reconstruction technique. COMPARISON: CT abdomen and pelvis August 06, 2016 FINDINGS: Lower thorax: No acute findings. ABDOMEN: Liver: Hepatic steatosis.. No mass. Gallbladder and bile ducts: Cholecystectomy No ductal dilation. Pancreas: Unremarkable. No mass. No ductal dilation. Spleen: Unremarkable. No splenomegaly. Adrenals: Unremarkable. No mass. Kidneys and ureters: Unremarkable. No solid mass. No hydronephrosis. Stomach and bowel: Colonic diverticulosis without evidence of diverticulitis. Small duodenal diverticulum. No obstruction. No mucosal thickening. Appendix: No findings to suggest acute appendicitis. PELVIS: Bladder: Unremarkable. Reproductive: Uterus is surgically absent.. ABDOMEN and PELVIS: Intraperitoneal space: Unremarkable. No free air. Trace free fluid in the pelvis.. Bones/joints: No acute fracture. No dislocation. Vasculature: Unremarkable. No abdominal aortic aneurysm. Lymph nodes: Unremarkable. No enlarged lymph nodes. IMPRESSION: No acute findings.
--- NOTE | 2017-03-15 02:38 | CT ---
EXAM: CT Angiography Chest With Intravenous Contrast CLINICAL HISTORY: Reason: Chest Pain TECHNIQUE: Axial computed tomographic angiography images of the chest with intravenous contrast using pulmonary embolism protocol. CTDI is 171.4 mGy and DLP is 44.9 mGy-cm. This CT exam was performed using one or more of the following dose reduction techniques: automated exposure control, adjustment of the mA and/or kV according to patient size, and/or use of iterative reconstruction technique. MIP reconstructed images were created and reviewed. COMPARISON: CTA chest 917 FINDINGS: Pulmonary arteries: Unremarkable. No pulmonary embolism. Aorta: No acute findings. No thoracic aortic aneurysm. Lungs: Mild left basilar atelectasis. No consolidation. No mass. Pleural space: Unremarkable. No significant effusion. No pneumothorax. Heart: Unremarkable. No cardiomegaly. No significant pericardial effusion. Bones/joints: No acute fracture. Lymph nodes: Unremarkable. No enlarged lymph nodes. IMPRESSION: -No acute findings. No evidence of pulmonary embolus.
[2017-03-15 02:50] VITALS: BP 151/78; PULSE 69; RESP 16
== END 2017-03-15 02:50 | disposition home or self-care (01) ==
LOC: EC 00:01
DX: R07.89 Other chest pain (principal); R10.13 Epigastric pain; I10 Essential (primary) hypertension; F41.9 Anxiety disorder, unspecified; Z79.82 Long term (current) use of aspirin; Z79.899 Other long term (current) drug therapy; Z90.49 Acquired absence of other specified parts of digestive tract
CPT/HCPCS: 99285; 96374; 96375 ×3; 36415; 93005; 80053; 82550; 82553; 83690; 83735; 84484; 85025; 85610; 85730; 71275; 74177; J2060; J2270; Q9967; J2405; C9113

== ENCOUNTER → 2017-08-04 | Outpatient (CLI) | payer OTHER ==
--- NOTE | 2017-08-05 12:22 | MM ---
Reason for exam: screening (asymptomatic). Last mammogram was performed 3 years and 3 months ago. History: Patient is postmenopausal. Physical Findings: A clinical breast exam by your physician is recommended on an annual basis and results should be correlated with mammographic findings. MG Screening Mammo w CAD Bilateral CC and MLO view(s) were taken. Prior study comparison: April 26, 2014, bilateral MG screening mammo w CAD. April 18, 2013, bilateral screening mammogram free. The breast tissue is heterogeneously dense. This may lower the sensitivity of mammography. There is no discrete abnormality. ASSESSMENT: Negative, BI-RAD 1 RECOMMENDATION: Routine screening mammogram of both breasts in 1 year.
== END | disposition home or self-care (01) ==
LOC: RADMAMWWP 11:15
PROVIDERS: ATTEND Family Medicine
DX: Z12.31 Encounter for screening mammogram for malignant neoplasm of breast (principal)
CPT/HCPCS: 77067

== ENCOUNTER 2018-02-26 01:46 | Emergency (ER) | payer OTHER ==
[2018-02-26 01:54] VITALS: TEMP 97.7
--- NOTE | 2018-02-26 02:24 | ED ---
General Adult HPI - General Chief complaint: Chest Pain Stated complaint: chest pain Time Seen by Provider: 02/26/18 01:58 Source: patient, family Mode of arrival: ambulatory Limitations: no limitations - History of Present Illness Initial comments: Pily is a 58-year-old female with extensive past medical history most significant for hypertension, coronary artery disease, history of cardiac catheterizations in the past who presents the emergency department today for evaluation of chest pain. Chest pain began suddenly this evening, is pressure- like in nature. It occurs without provocation. She cannot identify any exacerbating or relieving factors to the pain. Pain persisted for a couple hours and is subsiding but considering her history she came to the ER for evaluation. Patient reports chest pain, pressure, palpitations no shortness of breath diaphoresis or lightheadedness. - Related Data Home Medications Medication Instructions Recorded Confirmed Aspirin 81 mg PO HS 01/18/16 03/15/17 Lisinopril [Prinivil] 20 mg PO HS 08/06/16 03/15/17 ALPRAZolam [Xanax] 1 mg PO BID PRN 09/21/16 03/15/17 Allergies Allergy/AdvReac Type Severity Reaction Status Date / Time No Known Allergies Allergy Verified 02/26/18 01:54 Review of Systems ROS Statement: Those systems with pertinent positive or pertinent negative responses have been documented in the HPI. ROS Other: All systems not noted in ROS Statement are negative. Past Medical History Past Medical History: Chest Pain / Angina, GERD/Reflux, Hypertension, Osteoarthritis (OA), Syncope Additional Past Medical History / Comment(s): Pancreatitis. UTI History of Any Multi-Drug Resistant Organisms: None Reported Past Surgical History: Cholecystectomy, Heart Catheterization, Hysterectomy, Tubal Ligation Additional Past Surgical History / Comment(s): had PARTIAL hysterectomy, HIATAL HERNIA REPAIR, ERCP, BLADDER SUSPENSION X2, CYSTOCELE, RECTOCELE REPAIR Past Anesthesia/Blood Transfusion Reactions: Postoperative Nausea & Vomiting ( PONV) Past Psychological History: Anxiety Smoking Status: Never smoker Past Alcohol Use History: None Reported Past Drug Use History: None Reported - Past Family History Father Family Medical History: Cancer, Congestive Heart Failure (CHF), Coronary Artery Disease (CAD), Hypertension, Myocardial Infarction ([place]), Renal Disease Additional Family Medical History / Comment(s): KIDNEY/COLON CA Mother Family Medical History: Asthma, Hypertension, Osteoarthritis (OA) General Exam - General Exam Comments Initial Comments: GENERAL: Patient is well-developed and well-nourished. Patient is nontoxic and well- hydrated and is in no distress. HENT: Normocephalic, Atraumatic. Neck is soft and supple. No significant lymphadenopathy is noted. Oropharynx is clear. Moist mucous membranes. Neck has full range of motion without eliciting any pain. EYES: The sclera were anicteric and conjunctiva were pink and moist. Extraocular movements were intact and pupils were equal round and reactive to light. Eyelids were unremarkable. PULMONARY: Unlabored respirations. Good breath sounds bilaterally. No audible rales rhonchi or wheezing was noted. CARDIOVASCULAR: There is a regular rate and rhythm without any murmurs gallops or rubs. ABDOMEN: Soft and nontender with normal bowel sounds. SKIN: Skin is clear with no lesions or rashes and otherwise unremarkable. NEUROLOGIC: Patient is alert and oriented x3. Cranial nerves II through XII are grossly intact. Motor and sensory are also intact. Normal speech, volume and content. Symmetrical smile. MUSCULOSKELETAL: Normal extremities with adequate strength and full range of motion. No lower extremity swelling or edema. No calf tenderness. LYMPHATICS: No significant lymphadenopathy is noted PSYCHIATRIC: Normal psychiatric evaluation. Limitations: no limitations Limitations: no limitations Course Vital Signs 02/26/18 02/26/18 02/26/18 01:51 02:45 03:45 Temperature 97.7 F Pulse Rate 91 83 77 Respiratory 24 16 17 Rate Blood Pressure 158/98 140/78 143/70 O2 Sat by Pulse 99 98 98 Oximetry EKG Findings - EKG Comments: EKG Findings:: EKG obtained at 1:59 AM, rate is 79, rhythm is sinus, normal axis , there is a short UT at 110, QRS is 74, QTC is 440, there are no acute ST elevations or depressions no evidence of acute ischemia or infarction. When EKG was compared to EKG of February 2017 there is no significant change in morphology. UT was somewhat shortened today compared to previous. Medical Decision Making - Medical Decision Making The patient was seen and evaluated, history was obtained from the patient and at bedside Patient with history of coronary artery disease, hypertension, angina resenting with anginal sounding chest pain Workup was ordered EKG with no acute evidence of ischemia or infarction labs unremarkable I return to the patient's room to discuss her x-ray, EKG and lab results with her. The patient had changed out of her gown, removed her Cardec monitor and was in her clothes. Patient states that she is feeling fine and wants to leave. 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 At this time patient does not want to stay. The patient is awake alert, oriented, not intoxicated. Able to make her own decisions. At this time the patient understands that she has not undergone a thorough cardiac evaluation. She understands that she will be leaving AGAINST MEDICAL ADVICE. She understands that the risks of leaving AGAINST MEDICAL ADVICE will expressing chest pain include possibility of acute cardiac event as well as up to and including . Patient voices understanding of this. Patient reports that she is feeling fine if she feels any worse she will return to the emergency department. - Lab Data Result diagrams: 02/26/18 02:16 02/26/18 02:16 Lab Results 02/26/18 02/26/18 02/26/18 Range/Units 02:16 02:16 02:16 WBC 7.5 (3.8-10.6) k/uL RBC 4.46 (3.80-5.40) m/uL Hgb 12.3 (11.4-16.0) gm/dL Hct 40.1 (34.0-46.0) % MCV 90.0 (80.0-100.0) fL MCH 27.7 (25.0-35.0) pg MCHC 30.8 L (31.0-37.0) g/dL RDW 13.3 (11.5-15.5) % Plt Count 367 (150-450) k/uL Neutrophils % 51 % Lymphocytes % 37 % Monocytes % 7 % Eosinophils % 2 % Basophils % 1 % Neutrophils # 3.8 (1.3-7.7) k/uL Lymphocytes # 2.7 (1.0-4.8) k/uL Monocytes # 0.5 (0-1.0) k/uL Eosinophils # 0.2 (0-0.7) k/uL Basophils # 0.1 (0-0.2) k/uL PT (9.0-12.0) sec INR (<1.2) APTT (22.0-30.0) sec D-Dimer (<0.60) mg/L FEU Sodium 141 (137-145) mmol/L Potassium 4.3 (3.5-5.1) mmol/L Chloride 106 (98-107) mmol/L Carbon Dioxide 25 (22-30) mmol/L Anion Gap 10 mmol/L BUN 10 (7-17) mg/dL Creatinine 0.55 (0.52-1.04) mg/dL Est GFR (CKD-EPI)AfAm >90 (>60 ml/min/1.73 sqM) Est GFR (CKD-EPI)NonAf >90 (>60 ml/min/1.73 sqM) Glucose 113 H (74-99) mg/dL Calcium 9.5 (8.4-10.2) mg/dL Magnesium 2.0 (1.6-2.3) mg/dL Total Bilirubin 0.7 (0.2-1.3) mg/dL AST 38 H (14-36) U/L ALT 47 (9-52) U/L Alkaline Phosphatase 93 (38-126) U/L Total Creatine Kinase 54 (30-135) U/L CK-MB (CK-2) 0.6 (0.0-2.4) ng/mL CK-MB (CK-2) Rel Index 1.1 Troponin I <0.012 (0.000-0.034) ng/mL Total Protein 7.6 (6.3-8.2) g/dL Albumin 4.1 (3.5-5.0) g/dL 02/26/18 Range/Units 02:16 WBC (3.8-10.6) k/uL RBC (3.80-5.40) m/uL Hgb (11.4-16.0) gm/dL Hct (34.0-46.0) % MCV (80.0-100.0) fL MCH (25.0-35.0) pg MCHC (31.0-37.0) g/dL RDW (11.5-15.5) % Plt Count (150-450) k/uL Neutrophils % % Lymphocytes % % Monocytes % % Eosinophils % % Basophils % % Neutrophils # (1.3-7.7) k/uL Lymphocytes # (1.0-4.8) k/uL Monocytes # (0-1.0) k/uL Eosinophils # (0-0.7) k/uL Basophils # (0-0.2) k/uL PT 9.4 (9.0-12.0) sec INR 0.9 (<1.2) APTT 23.3 (22.0-30.0) sec D-Dimer 1.66 H (<0.60) mg/L FEU Sodium (137-145) mmol/L Potassium (3.5-5.1) mmol/L Chloride (98-107) mmol/L Carbon Dioxide (22-30) mmol/L Anion Gap mmol/L BUN (7-17) mg/dL Creatinine (0.52-1.04) mg/dL Est GFR (CKD-EPI)AfAm (>60 ml/min/1.73 sqM) Est GFR (CKD-EPI)NonAf (>60 ml/min/1.73 sqM) Glucose (74-99) mg/dL Calcium (8.4-10.2) mg/dL Magnesium (1.6-2.3) mg/dL Total Bilirubin (0.2-1.3) mg/dL AST (14-36) U/L ALT (9-52) U/L Alkaline Phosphatase (38-126) U/L Total Creatine Kinase (30-135) U/L CK-MB (CK-2) (0.0-2.4) ng/mL CK-MB (CK-2) Rel Index Troponin I (0.000-0.034) ng/mL Total Protein (6.3-8.2) g/dL Albumin (3.5-5.0) g/dL Disposition Clinical Impression: Chest pain Disposition: Left Against Medical Advice Referrals: Rickie Brenner DO [Primary Care Provider] - 1-2 days
[2018-02-26 02:47] LABS: Basophils # (A) 0.1 k/uL (0-0.2); Basophils % (A) 1 %; Eosinophils # (A) 0.2 k/uL (0-0.7); Eosinophils % (A) 2 %; HCT 40.1 % (34.0-46.0); HGB 12.3 gm/dL (11.4-16.0); Lymphocytes # (A) 2.7 k/uL (1.0-4.8); Lymphocytes % (A) 37 %; MCH 27.7 pg (25.0-35.0); MCHC 30.8 g/dL (31.0-37.0); Mean Platelet Volume 6.5; Monocytes # (A) 0.5 k/uL (0-1.0); Monocytes % (A) 7 %; Neutrophils # (A) 3.8 k/uL (1.3-7.7); Neutrophils % (A) 51 %; Platelet Count 367 k/uL (150-450); RBC 4.46 m/uL (3.80-5.40); RDW 13.3 % (11.5-15.5); WBC 7.5 k/uL (3.8-10.6)
[2018-02-26 02:57] LABS: ALT 47 U/L (9-52); AST 38 U/L (14-36); Albumin 4.1 g/dL (3.5-5.0); Alkaline Phosphatase 93 U/L (38-126); Anion Gap 10 mmol/L; Blood Urea Nitrogen 10 mg/dL (7-17); Calcium 9.5 mg/dL (8.4-10.2); Carbon Dioxide 25 mmol/L (22-30); Chloride 106 mmol/L (98-107); Glucose 113 mg/dL (74-99); Potassium 4.3 mmol/L (3.5-5.1); Sodium 141 mmol/L (137-145); Total Bilirubin 0.7 mg/dL (0.2-1.3); Total Protein 7.6 g/dL (6.3-8.2)
[2018-02-26 03:00] LABS: INR 0.9 (<1.2); Partial Thromboplastin Time 23.3 sec (22.0-30.0); Prothrombin Time 9.4 sec (9.0-12.0)
[2018-02-26 03:05] LABS: Creatine Kinase 54 U/L (30-135)
--- NOTE | 2018-02-26 03:09 | XR ---
EXAMINATION TYPE: XR chest 2V DATE OF EXAM: 02/26/2018 COMPARISON: 10/11/2016 HISTORY: Chest pain TECHNIQUE: Frontal and lateral views of the chest are obtained. FINDINGS: Heart and mediastinum are normal. Lungs are clear. Diaphragm is normal. There are chest le ads. Bony thorax is intact. IMPRESSION: Normal chest. No change
[2018-02-26 03:17] LABS: D-Dimer 1.66 mg/L FEU (<0.60)
[2018-02-26 03:18] LABS: Creatine Kinase MB 0.6 ng/mL (0.0-2.4); Troponin I <0.012 ng/mL (0.000-0.034)
--- NOTE | 2018-02-26 03:44 | CT ---
EXAMINATION TYPE: CT chest angio for PE DATE OF EXAM: 02/26/2018 COMPARISON: 03/15/2017 HISTORY: Prior on synapse, chest tightness, light-headed, elevated d-dimer R/O PE CT DLP: 407.50 mGycm Automated exposure control for dose reduction was used. CONTRAST: CT Chest for pulmonary embolism performed with with IV Contrast, patient injected with 70 mL of Isovu e 370. FINDINGS: There are 3-D post processed images. The lungs are clear of consolidation. There is no pleural effusion. There is no pericardial effusion. There is no mediastinal adenopathy. Thoracic aorta is intact. There is normal contrast opacification of the pulmonary arteries. There are no filling defects. The b cata thorax is intact. IMPRESSION: No evidence of pulmonary embolism. No change.
[2018-02-26 03:45] VITALS: BP 143/70; PULSE 77; RESP 17
== END 2018-02-26 04:52 | disposition left against medical advice (07) ==
LOC: EC 01:46
DX: R07.89 Other chest pain (principal); R00.2 Palpitations; I10 Essential (primary) hypertension; I25.10 Atherosclerotic heart disease of native coronary artery without angina pectoris; M19.90 Unspecified osteoarthritis, unspecified site; Z79.82 Long term (current) use of aspirin; Z79.899 Other long term (current) drug therapy; Z95.9 Presence of cardiac and vascular implant and graft, unspecified; Z82.49 Family history of ischemic heart disease and other diseases of the circulatory system
CPT/HCPCS: 36415; 85379; 80053; 82550; 82553; 83735; 84484; 85025; 85610; 85730; 71046; 71275; 99285; Q9967

== ENCOUNTER 2018-03-21 21:39 | Emergency (ER) | payer OTHER ==
[2018-03-21] MEDS ORDERED: KETOROLAC 30 MG/ML 1 ML VIAL IVP STA (22:51)
[2018-03-21] MEDS ORDERED: MORPHINE SULFATE 4 MG/ML SYRINGE IV STA (22:51)
[2018-03-21] MEDS ORDERED: SODIUM CHLORIDE 0.9% 1,000 ML IV STA (22:51)
[2018-03-21] MEDS ORDERED: ONDANSETRON 4 MG/2 ML VIAL IVP STA (22:51)
[2018-03-22 00:06] LABS: Appearance,Urine Clear (Clear); Bilirubin,Urine Negative (Negative); Blood,Urine Small (Negative); Color,Urine Yellow; Glucose,Urine (UA) Negative (Negative); Ketones,Urine Negative (Negative); Leukocyte Esterase,Urine Negative (Negative); Mucus,Urine Many /hpf; Nitrite,Urine Negative (Negative); Protein,Urine Trace (Negative); RBC,Urine 3 /hpf (0-5); Specific Gravity,Urine 1.024 (1.001-1.035); Squamous Epithelial Cell,Urine 2 /hpf (0-4); WBC,Urine 1 /hpf (0-5)
[2018-03-22 00:12] LABS: Basophils # (A) 0.1 k/uL (0-0.2); Basophils % (A) 1 %; Eosinophils # (A) 0.1 k/uL (0-0.7); Eosinophils % (A) 2 %; HCT 37.7 % (34.0-46.0); HGB 12.3 gm/dL (11.4-16.0); Lymphocytes # (A) 2.3 k/uL (1.0-4.8); Lymphocytes % (A) 34 %; MCH 28.5 pg (25.0-35.0); MCHC 32.6 g/dL (31.0-37.0); MCV 87.5 fL (80.0-100.0); Mean Platelet Volume 6.9; Monocytes # (A) 0.4 k/uL (0-1.0); Monocytes % (A) 6 %; Neutrophils # (A) 3.7 k/uL (1.3-7.7); Neutrophils % (A) 56 %; Platelet Count 343 k/uL (150-450); RBC 4.31 m/uL (3.80-5.40); RDW 13.2 % (11.5-15.5); WBC 6.7 k/uL (3.8-10.6)
[2018-03-22 00:22] LABS: ALT 34 U/L (9-52); AST 33 U/L (14-36); Albumin 4.3 g/dL (3.5-5.0); Alkaline Phosphatase 86 U/L (38-126); Amylase 44 U/L (30-110); Anion Gap 9 mmol/L; Blood Urea Nitrogen 12 mg/dL (7-17); Calcium 9.9 mg/dL (8.4-10.2); Carbon Dioxide 25 mmol/L (22-30); Chloride 105 mmol/L (98-107); Glucose 95 mg/dL (74-99); Lipase 67 U/L (23-300); Potassium 4.9 mmol/L (3.5-5.1); Sodium 139 mmol/L (137-145); Total Bilirubin 1.1 mg/dL (0.2-1.3); Total Protein 7.6 g/dL (6.3-8.2)
--- NOTE | 2018-03-22 00:49 | ED ---
Abdominal Pain HPI - General Source: patient Mode of arrival: ambulatory Limitations: no limitations <Shannon Cheng - Last Filed: 03/22/18 04:55> <Treasure Oliva - Last Filed: 03/22/18 08:34> - General Chief Complaint: Abdominal Pain Stated Complaint: back & abdominal pain Time Seen by Provider: 03/21/18 22:22 - History of Present Illness Initial Comments: 58 year-old female patient presents to the emergency department today for evaluation of right lower quadrant abdominal pain radiates into her right lower back. Patient states the pain has been going on for about a week that has been worsening. Patient states that she was being treated for urinary tract infection for about 1 month. States that she has changed antibiotics twice. Patient states that she was seen and evaluated at [facility] for similar symptoms and they're only finding was urinary tract infection. Patient states he did do a computed tomography scan she was negative for any evidence of kidney stone. Patient states that she had no contrast with this exam. Patient states that she has been nauseated but denies any vomiting. Denies any hematuria, dysuria, urinary frequency, urinary urgency. She denies any radiation of the pain down her legs. Denies any lower extremity numbness or tingling. Denies any saddle anesthesia or loss of bowel or bladder control. She denies any fevers or chills with this. Patient denies any recent rash, shortness breath, chest pain, diarrhea, constipation, dizziness, weakness, headache, visual changes, or any other complaints. (Shannon Cheng) - Related Data Home Medications Medication Instructions Recorded Confirmed Aspirin 81 mg PO HS 01/18/16 03/21/18 Lisinopril [Prinivil] 20 mg PO HS 08/06/16 03/21/18 ALPRAZolam [Xanax] 1 mg PO TID PRN 09/21/16 03/21/18 Dicyclomine [Bentyl] 10 mg PO TID PRN 03/21/18 03/21/18 Escitalopram Oxalate [Lexapro] 10 mg PO HS 03/21/18 03/21/18 Sulfamethox-Tmp 800-160Mg [Bactrim 1 tab PO Q12HR 03/21/18 03/21/18 DS 800-160 mg] Previous Rx's Medication Instructions Recorded Ibuprofen [Motrin] 600 mg PO Q8HR PRN #30 tab 03/22/18 Phenazopyridine HCl [Pyridium] 100 mg PO TID #15 tab 03/22/18 Allergies Allergy/AdvReac Type Severity Reaction Status Date / Time No Known Allergies Allergy Verified 03/21/18 22:27 Review of Systems ROS Other: All systems not noted in ROS Statement are negative. <Shannon Cheng - Last Filed: 03/22/18 04:55> ROS Other: All systems not noted in ROS Statement are negative. <Treasure Oliva - Last Filed: 03/22/18 08:34> ROS Statement: Those systems with pertinent positive or pertinent negative responses have been documented in the HPI. Past Medical History Past Medical History: Chest Pain / Angina, GERD/Reflux, Hypertension, Osteoarthritis (OA), Syncope Additional Past Medical History / Comment(s): Pancreatitis. UTI History of Any Multi-Drug Resistant Organisms: None Reported Past Surgical History: Cholecystectomy, Heart Catheterization, Hysterectomy, Tubal Ligation Additional Past Surgical History / Comment(s): had PARTIAL hysterectomy, HIATAL HERNIA REPAIR, ERCP, BLADDER SUSPENSION X2, CYSTOCELE, RECTOCELE REPAIR Past Anesthesia/Blood Transfusion Reactions: Postoperative Nausea & Vomiting ( PONV) Past Psychological History: Anxiety Smoking Status: Never smoker Past Alcohol Use History: None Reported Past Drug Use History: None Reported - Past Family History Father Family Medical History: Cancer, Congestive Heart Failure (CHF), Coronary Artery Disease (CAD), Hypertension, Myocardial Infarction ([place]), Renal Disease Additional Family Medical History / Comment(s): KIDNEY/COLON CA Mother Family Medical History: Asthma, Hypertension, Osteoarthritis (OA) <Shannon Cheng - Last Filed: 03/22/18 04:55> General Exam Limitations: no limitations General appearance: alert, in no apparent distress, other (This is a well- developed, well-nourished adult female patient in no acute distress. Vital signs upon presentation are temperature 97.9F, pulse 79, respirations 20, blood pressure 182/98, pulse ox 99% on room air.) Eye exam: Present: normal appearance, PERRL, EOMI. Absent: scleral icterus, conjunctival injection, periorbital swelling ENT exam: Present: normal exam, normal oropharynx, mucous membranes moist Respiratory exam: Present: normal lung sounds bilaterally. Absent: respiratory distress, wheezes, rales, rhonchi, stridor Cardiovascular Exam: Present: regular rate, normal rhythm, normal heart sounds. Absent: systolic murmur, diastolic murmur, rubs, gallop, clicks GI/Abdominal exam: Present: soft, tenderness (Right lower quadrant tenderness), normal bowel sounds. Absent: distended, guarding, rebound, rigid Neurological exam: Present: alert, oriented X3, CN II-XII intact Psychiatric exam: Present: normal affect, normal mood Skin exam: Present: warm, dry, intact, normal color. Absent: rash <Shannon Cheng - Last Filed: 03/22/18 04:55> Vital Signs 03/21/18 03/21/18 03/22/18 22:10 23:15 01:40 Temperature 97.9 F 98.5 F Pulse Rate 79 72 Respiratory 20 17 17 Rate Blood Pressure 182/98 140/67 O2 Sat by Pulse 99 97 Oximetry Medical Decision Making - Lab Data Result diagrams: 03/21/18 23:45 03/21/18 23:45 - Radiology Data Radiology results: report reviewed <Shannon Cheng - Last Filed: 03/22/18 04:55> - Lab Data Result diagrams: 03/21/18 23:45 03/21/18 23:45 <Treasure Oliva - Last Filed: 03/22/18 08:34> - Medical Decision Making 58 year old female patient presented to the emergency department today for evaluation of right lower quadrant and lower back pain. Physical examination did reveal some mild tenderness over the right lower quadrant. Labs reviewed and were unremarkable other than some mild hematuria. Computed tomography scan of the abdomen and pelvis was obtained to rule out appendicitis or any stone, there is no acute abnormalities in the abdomen and pelvis. Patient be discharged home to follow-up with her primary care physician as well as urology for further evaluation. We did discuss that bladder spasms could be a cause of her symptoms. She is instructed to increase fluids. She'll be given a prescription for Pyridium. Return parameters discussed in detail per age verbalizes understanding and agrees with this plan. (Shannon Cheng) I was available for consultation in the emergency department. The history and physical exam were done by the midlevel provider. I was consulted for this patient's care. I reviewed the case with the midlevel provider and based on their presentation of the patient, I agree with the assessment, medical decision making and plan of care as documented. (Treasure Oliva) - Lab Data Lab Results 03/21/18 03/21/18 03/21/18 Range/Units 23:00 23:45 23:45 WBC 6.7 (3.8-10.6) k/uL RBC 4.31 (3.80-5.40) m/uL Hgb 12.3 (11.4-16.0) gm/dL Hct 37.7 (34.0-46.0) % MCV 87.5 (80.0-100.0) fL MCH 28.5 (25.0-35.0) pg MCHC 32.6 (31.0-37.0) g/dL RDW 13.2 (11.5-15.5) % Plt Count 343 (150-450) k/uL Neutrophils % 56 % Lymphocytes % 34 % Monocytes % 6 % Eosinophils % 2 % Basophils % 1 % Neutrophils # 3.7 (1.3-7.7) k/uL Lymphocytes # 2.3 (1.0-4.8) k/uL Monocytes # 0.4 (0-1.0) k/uL Eosinophils # 0.1 (0-0.7) k/uL Basophils # 0.1 (0-0.2) k/uL Sodium 139 (137-145) mmol/L Potassium 4.9 (3.5-5.1) mmol/L Chloride 105 (98-107) mmol/L Carbon Dioxide 25 (22-30) mmol/L Anion Gap 9 mmol/L BUN 12 (7-17) mg/dL Creatinine 0.63 (0.52-1.04) mg/dL Est GFR (CKD-EPI)AfAm >90 (>60 ml/min/1.73 sqM) Est GFR (CKD-EPI)NonAf >90 (>60 ml/min/1.73 sqM) Glucose 95 (74-99) mg/dL Plasma Lactic Acid Ryan (0.7-2.0) mmol/L Calcium 9.9 (8.4-10.2) mg/dL Total Bilirubin 1.1 (0.2-1.3) mg/dL AST 33 (14-36) U/L ALT 34 (9-52) U/L Alkaline Phosphatase 86 (38-126) U/L Total Protein 7.6 (6.3-8.2) g/dL Albumin 4.3 (3.5-5.0) g/dL Amylase 44 (30-110) U/L Lipase 67 (23-300) U/L Urine Color Yellow Urine Appearance Clear (Clear) Urine pH 6.0 (5.0-8.0) Ur Specific [place] 1.024 (1.001-1.035) Urine Protein Trace H (Negative) Urine Glucose (UA) Negative (Negative) Urine Ketones Negative (Negative) Urine Blood Small H (Negative) Urine Nitrite Negative (Negative) Urine Bilirubin Negative (Negative) Urine Urobilinogen 2.0 (<2.0) mg/dL Ur Leukocyte Esterase Negative (Negative) Urine RBC 3 (0-5) /hpf Urine WBC 1 (0-5) /hpf Ur Squamous Epith Cells 2 (0-4) /hpf Urine Mucus Many H (None) /hpf 03/21/18 Range/Units 23:45 WBC (3.8-10.6) k/uL RBC (3.80-5.40) m/uL Hgb (11.4-16.0) gm/dL Hct (34.0-46.0) % MCV (80.0-100.0) fL MCH (25.0-35.0) pg MCHC (31.0-37.0) g/dL RDW (11.5-15.5) % Plt Count (150-450) k/uL Neutrophils % % Lymphocytes % % Monocytes % % Eosinophils % % Basophils % % Neutrophils # (1.3-7.7) k/uL Lymphocytes # (1.0-4.8) k/uL Monocytes # (0-1.0) k/uL Eosinophils # (0-0.7) k/uL Basophils # (0-0.2) k/uL Sodium (137-145) mmol/L Potassium (3.5-5.1) mmol/L Chloride (98-107) mmol/L Carbon Dioxide (22-30) mmol/L Anion Gap mmol/L BUN (7-17) mg/dL Creatinine (0.52-1.04) mg/dL Est GFR (CKD-EPI)AfAm (>60 ml/min/1.73 sqM) Est GFR (CKD-EPI)NonAf (>60 ml/min/1.73 sqM) Glucose (74-99) mg/dL Plasma Lactic Acid Ryan 0.9 (0.7-2.0) mmol/L Calcium (8.4-10.2) mg/dL Total Bilirubin (0.2-1.3) mg/dL AST (14-36) U/L ALT (9-52) U/L Alkaline Phosphatase (38-126) U/L Total Protein (6.3-8.2) g/dL Albumin (3.5-5.0) g/dL Amylase (30-110) U/L Lipase (23-300) U/L Urine Color Urine Appearance (Clear) Urine pH (5.0-8.0) Ur Specific [place] (1.001-1.035) Urine Protein (Negative) Urine Glucose (UA) (Negative) Urine Ketones (Negative) Urine Blood (Negative) Urine Nitrite (Negative) Urine Bilirubin (Negative) Urine Urobilinogen (<2.0) mg/dL Ur Leukocyte Esterase (Negative) Urine RBC (0-5) /hpf Urine WBC (0-5) /hpf Ur Squamous Epith Cells (0-4) /hpf Urine Mucus (None) /hpf - Radiology Data CT abdomen and pelvis with contrast was obtained. Report was reviewed in its entirety. Impression by Dr. Hines shows no evidence of an acute abnormality of the abdomen and pelvis. No adverse change compared to old exam. Mild sigmoid diverticulosis. (Shannon Cheng) Disposition Is patient prescribed a controlled substance at d/c from ED?: No Time of Disposition: 01:38 <Shannon Cheng - Last Filed: 03/22/18 04:55> <Treasure Oliva - Last Filed: 03/22/18 08:34> Clinical Impression: Abdominal pain, Hematuria Disposition: HOME SELF-CARE Condition: Good Instructions: Hematuria (ED), Abdominal Pain (ED) Additional Instructions: Increase fluids. Take medications as directed. Follow-up with your primary care physician for recheck in 1-2 days. Follow-up with urology for further evaluation. Return here immediately for any new, worsening, or concerning symptoms. Prescriptions: Ibuprofen [Motrin] 600 mg PO Q8HR PRN #30 tab PRN Reason: Pain Phenazopyridine HCl [Pyridium] 100 mg PO TID #15 tab Referrals: Rickie Brenner DO [Primary Care Provider] - 1-2 days
--- NOTE | 2018-03-22 01:07 | CT ---
EXAMINATION TYPE: CT abdomen pelvis w con DATE OF EXAM: 03/22/2018 COMPARISON: 03/15/2017 HISTORY: Prior on synapse, right sided abd, back and groin pain lasting 2 days, history of cholecyste ctomy, hysterectomy, hiatal hernia repair,cystocele and rectocele repair, bladder suspension CT DLP: 1071.90 mGycm Automated exposure control for dose reduction was used. TECHNIQUE: Helical acquisition of images was performed from the lung bases through the pelvis. CONTRAST: Performed without Oral Contrast and with IV Contrast, patient injected with 100 mL of Isovue 300. FINDINGS: Lung bases are clear of consolidation. There is no pleural effusion. Heart size is normal. There is n o pericardial effusion. Liver spleen pancreas appear normal. There are clips from cholecystectomy. Bi le ducts are not dilated. There is no adrenal mass. Stomach appears normal. Kidneys show satisfactory contrast opacification. T here is no hydronephrosis. Ureters are not dilated. There is no retroperitoneal adenopathy. There is no mesenteric adenopathy. There is no ascites. I see no intestinal wall thickening. There are no dila layla loops. Latter distends smoothly. There is no pelvic mass. There is no sign of free air. There is small umbilical hernia that contains fat. There is no inguinal hernia. Lumbar spine is intact. I see no bony destructive process. Abdominal soft tissues are unremarkable. H ysterectomy is noted. There are a few sigmoid diverticula without evidence of diverticulitis. IMPRESSION: NO EVIDENCE OF AN ACUTE ABNORMALITY OF THE ABDOMEN AND PELVIS. NO ADVERSE CHANGE COMPARED TO OLD EXAM . MILD SIGMOID DIVERTICULOSIS.
[2018-03-22 01:09] VITALS: RESP 17
[2018-03-22] MEDS ORDERED: MORPHINE SULFATE 4 MG/ML SYRINGE IVP STA (01:10)
[2018-03-22 01:52] VITALS: BP 140/67; PULSE 72; TEMP 98.5
== END 2018-03-22 01:41 | disposition home or self-care (01) ==
LOC: EC 21:39
DX: R10.31 Right lower quadrant pain (principal); R31.9 Hematuria, unspecified; M54.5 Low back pain; R11.0 Nausea; K21.9 Gastro-esophageal reflux disease without esophagitis; I10 Essential (primary) hypertension; F41.9 Anxiety disorder, unspecified; Z87.19 Personal history of other diseases of the digestive system; Z90.49 Acquired absence of other specified parts of digestive tract; Z90.710 Acquired absence of both cervix and uterus; Z98.51 Tubal ligation status; Z98.890 Other specified postprocedural states; Z79.82 Long term (current) use of aspirin; Z79.899 Other long term (current) drug therapy
CPT/HCPCS: 36415; 80053; 82150; 83605; 83690; 85025; 81001; 87040; 87086; 74177; 99284; 96374; 96375 ×2; 96376; J2270 ×2; J2405; J1885; Q9967

== ENCOUNTER → 2019-09-22 | Outpatient (CLI) | payer OTHER ==
--- NOTE | 2019-09-22 13:31 | XR ---
EXAMINATION TYPE: XR chest 2V DATE OF EXAM: 09/22/2019 COMPARISON: 02/26/2018 HISTORY: 59-year-old female with chest pain TECHNIQUE: Frontal and lateral views FINDINGS: Heart normal size. Aorta and pulmonary vasculature within normal limits. No consolidation or pleural effusion. IMPRESSION: No acute cardiopulmonary process.
--- NOTE | 2019-09-22 13:36 | XR ---
EXAMINATION TYPE: XR thoracic spine complete DATE OF EXAM: 09/22/2019 Comparison: None Clinical History: 59-year-old female M54.6 pain thoracic spine Findings: Gentle S-shaped curvature. 13 rib-bearing thoracic vertebral bodies are counted. All pedicles are vis ualized. Minimal anterior wedging of a midthoracic vertebral body is new from the CT of 02/26/2018 but still remains age indeterminate. Otherwise, mild degenerative disc disease throughout the upper and m id thoracic spine. Remaining vertebral body heights are preserved and alignment is maintained. Impression: 1. Minimal anterior wedging of a midthoracic vertebral body is new from 02/26/2018 but still remains ag e indeterminate. Correlate for any recent injury and for any pain at this level. 2. Mild S-shaped curvature of the thoracic spine. Mild degenerative disc disease upper and mid thorac ic spine.
== END | disposition home or self-care (01) ==
LOC: RADXRMAIN 12:59
PROVIDERS: ATTEND Family Medicine
DX: M51.34 Other intervertebral disc degeneration, thoracic region (principal); M43.8X4 Other specified deforming dorsopathies, thoracic region; M48.54XA Collapsed vertebra, not elsewhere classified, thoracic region, initial encounter for fracture
CPT/HCPCS: 71046; 72072

== ENCOUNTER 2019-10-07 12:13 | Emergency (ER) | payer OTHER ==
[2019-10-07 12:22] VITALS: BP 143/85; PULSE 70; RESP 18; TEMP 97.9
--- NOTE | 2019-10-07 12:46 | ED ---
Lower Extremity Injury HPI - General Chief Complaint: Extremity Injury, Lower Stated Complaint: fall Time Seen by Provider: 10/07/19 12:22 Source: patient Mode of arrival: wheelchair Limitations: no limitations - History of Present Illness Initial Comments: Patient is a 59-year-old female presenting to the emergency Department with complaints of left ankle pain since yesterday. Patient states that approximately 2:30 in the morning she rolled her left ankle. Patient states that today the swelling has increased and so has her pain. She denies any p revious injuries or surgeries to her left ankle. She has increased pain with weightbearing. She denies any other injuries from her fall. She has no other complaints at this time. Upon arrival to the ER, her vitals are stable. - Related Data Home Medications Medication Instructions Recorded Confirmed Multivit-Min/Iron/Folic/Lutein 1 tab PO DAILY 10/07/19 10/07/19 [Centrum Silver Women Tablet] traZODone HCL [Desyrel] 100 mg PO HS 10/07/19 10/07/19 Allergies Allergy/AdvReac Type Severity Reaction Status Date / Time No Known Allergies Allergy Verified 10/07/19 13:05 Review of Systems ROS Statement: Those systems with pertinent positive or pertinent negative responses have been documented in the HPI. ROS Other: All systems not noted in ROS Statement are negative. Past Medical History Past Medical History: Chest Pain / Angina, GERD/Reflux, Hypertension, Osteoarthritis (OA), Syncope Additional Past Medical History / Comment(s): Pancreatitis. UTI History of Any Multi-Drug Resistant Organisms: ESBL Date of last positivie culture/infection: 03/21/18 MDRO Source:: ESBL URINE Past Surgical History: Cholecystectomy, Heart Catheterization, Hysterectomy, Tubal Ligation Additional Past Surgical History / Comment(s): had PARTIAL hysterectomy, HIATAL HERNIA REPAIR, ERCP, BLADDER SUSPENSION X2, CYSTOCELE, RECTOCELE REPAIR Past Anesthesia/Blood Transfusion Reactions: Postoperative Nausea & Vomiting (PONV) Past Psychological History: Anxiety Smoking Status: Never smoker Past Alcohol Use History: None Reported Past Drug Use History: None Reported - Past Family History Father Family Medical History: Cancer, Congestive Heart Failure (CHF), Coronary Artery Disease (CAD), Hypertension, Myocardial Infarction ([place]), Renal Disease Additional Family Medical History / Comment(s): KIDNEY/COLON CA Mother Family Medical History: Asthma, Hypertension, Osteoarthritis (OA) General Exam - General Exam Comments Initial Comments: GENERAL: Well-appearing, well-nourished and in no acute distress. HEAD: Atraumatic, normocephalic. EYES: Pupils equal round and reactive to light, extraocular movements intact, sclera anicteric, conjunctiva are normal. ENT: Moist mucous membranes. NECK: Normal range of motion, supple without lymphadenopathy or JVD. LUNGS: Breath sounds clear to auscultation bilaterally and equal. No wheezes rales or rhonchi. HEART: Regular rate and rhythm without murmurs, rubs or gallops. ABDOMEN: Soft, nontender, normoactive bowel sounds. No guarding, no rebound. No masses appreciated. EXTREMITIES: Pain with palpation of the left lateral malleolus and mildly on the medial malleolus. Patient has significant swelling noted lateral malleolus as well as bruising. Patient has very little range of motion secondary to pain. Patient is neurovascular intact. No clubbing or cyanosis. NEUROLOGICAL: Normal speech. PSYCH: Normal mood, normal affect. SKIN: Warm, Dry, normal turgor, no rashes or lesions noted. Limitations: no limitations Course Vital Signs 10/07/19 12:20 Temperature 97.9 F Pulse Rate 70 Respiratory 18 Rate Blood Pressure 143/85 O2 Sat by Pulse 100 Oximetry Procedures - Orthopedic Splinting/Casting Injury #1 Side: left Lower Extremity Injury Location: short leg, ankle Lower Extremity Immobilizer: posterior splint, stirrup splint, Leo wrap, synthetic pre-padded splint Medical Decision Making - Medical Decision Making Patient 59-year-old female here for left ankle pain after falling at approximately 2:30am this morning. X-ray of the left ankle reveals a comminuted distal left fibular fracture with an associated posterior malleolus fracture. Patient was placed in a short leg posterior and stirrup splint and will follow up with orthopedics on Wednesday morning. She'll continue to ice, elevate the injury. She'll take Motrin or Tylenol for discomfort. Patient is in agreement with this plan of care. Return parameters were discussed with the patient she verbalized understanding. Case discussed with Dr. Cheatham. Disposition Clinical Impression: Closed fracture of left distal fibula, Fracture of posterior malleolus of left tibia Disposition: HOME SELF-CARE Condition: Stable Instructions (If sedation given, give patient instructions): Ankle Fracture (ED) Additional Instructions: Please return to the Emergency Department if symptoms worsen or any other concerns. Keep splint in place until follow-up with orthopedics. Please call orthopedics office Wednesday morning for an appointment. May take Tylenol and/or Motrin for pain relief. Keep leg elevated. May ice the area as well. Is patient prescribed a controlled substance at d/c from ED?: No Referrals: Rickie Brenner DO [Primary Care Provider] - 1-2 days Alberto Geiger MD [STAFF PHYSICIAN] - 1-2 days
--- NOTE | 2019-10-07 12:52 | XR ---
EXAMINATION TYPE: XR ankle complete LT , 3 VIEWS DATE OF EXAM ORDERED: 10/07/2019 HISTORY: fall, pain, swelling. COMPARISON: None. FINDINGS: There is a minimally displaced, comminuted fracture of the distal left fibular metaphysis. There also appears to be a posterior malleolus fracture no definite ankle joint effusion is seen. IMPRESSION: COMMINUTED DISTAL LEFT FIBULAR METAPHYSEAL FRACTURE WITH AN ASSOCIATED POSTERIOR MALLEOLUS FRACTURE. CODE A: INITIAL ENCOUNTER FOR CLOSED FRACTURE.
== END 2019-10-07 13:19 | disposition home or self-care (01) ==
LOC: EC 12:13
DX: S82.832A Other fracture of upper and lower end of left fibula, initial encounter for closed fracture (principal); S82.52XA Displaced fracture of medial malleolus of left tibia, initial encounter for closed fracture; I10 Essential (primary) hypertension; F41.9 Anxiety disorder, unspecified; Z79.899 Other long term (current) drug therapy; X50.9XXA Other and unspecified overexertion or strenuous movements or postures, initial encounter
CPT/HCPCS: 73610; 99283; 29515; L4350

== ENCOUNTER → 2020-09-10 | Outpatient (CLI) | payer BC ==
--- NOTE | 2020-09-12 04:54 | MR ---
EXAMINATION TYPE: MR shoulder LT wo con DATE OF EXAM: 09/10/2020 COMPARISON: None HISTORY: Left shoulder pain for 3 months. Multiplanar multiecho imaging of the left shoulder was performed with no contrast. There is hypertrophic spurring at the AC joint with subacromial impingement. There is mild thickening and slight increased signal in the supraspinatus tendon over the top of the humeral head. There is n o retraction. I do not see a full-thickness tear. The humeral head is intact. Subscapularis tendon is intact. Biceps tendon is intact. The glenoid mumtaz appear intact. I see no fo astrid bone destruction. The glenohumeral joint appears fairly normal. IMPRESSION: There is some spurring at the AC joint and mild subacromial impingement. Minimal signal changes in the supraspinatus tendon consistent with mild tendinitis. No evidence of fu ll-thickness tear.
== END ==
LOC: RADMRIMAIN 11:18
PROVIDERS: ATTEND Orthopaedic Surgery
DX: M77.8 Other enthesopathies, not elsewhere classified (principal)

== ENCOUNTER → 2020-10-01 | Outpatient (CLI) | payer BC ==
[2020-10-01 13:52] LABS: Basophils % (A) 0 %; Eosinophils % (A) 0 %; HCT 36.2 % (34.0-46.0); HGB 12.4 gm/dL (11.4-16.0); Lymphocytes # (A) 1.2 k/uL (1.0-4.8); Lymphocytes % (A) 30 %; MCH 30.2 pg (25.0-35.0); MCHC 34.1 g/dL (31.0-37.0); MCV 88.6 fL (80.0-100.0); Mean Platelet Volume 7.1; Monocytes # (A) 0.2 k/uL (0-1.0); Monocytes % (A) 6 %; Neutrophils # (A) 2.5 k/uL (1.3-7.7); Neutrophils % (A) 62 %; Platelet Count 250 k/uL (150-450); RBC 4.09 m/uL (3.80-5.40); RDW 12.4 % (11.5-15.5)
== END | disposition home or self-care (01) ==
LOC: LABWHC1 12:27
PROVIDERS: ATTEND Orthopaedic Surgery
DX: Z01.810 Encounter for preprocedural cardiovascular examination (principal); Z01.812 Encounter for preprocedural laboratory examination; M75.41 Impingement syndrome of right shoulder
CPT/HCPCS: 80051; 85025; 93005

== ENCOUNTER → 2020-10-23 | Day surgery (SDC) | payer BC ==
[2020-10-14 13:59] VITALS: BMI 24.0
--- NOTE | 2020-10-22 20:01 | HP ---
HISTORY AND PHYSICAL DATE OF SURGERY: 10/23/2020 HISTORY OF PRESENT ILLNESS: Pily Murphy is a 60-year-old patient seen with progressive left shoulder pain. We discussed options for treatment. She elected to proceed with arthroscopy. Consent was obtained. PAST MEDICAL HISTORY: Hypertension. PAST SURGICAL HISTORY: Cholecystectomy, hysterectomy, bladder suspension surgery. MEDICATIONS: Trazodone. ALLERGIES: None. SOCIAL HISTORY: She denies current tobacco use. PHYSICAL EVALUATION OF THE LEFT SHOULDER: Flexion is 100 degrees, abduction 70 degrees, external rotation is 30 degrees with pain and weakness. Tenderness along the anterior lateral acromion and rotator cuff insertion site. Impingement positive at 80 degrees. Drop-arm sign is positive. Distal neurovascular exam is intact. RADIOGRAPHS: Left shoulder revealed a type 2 acromion, acromioclavicular joint osteoarthritis and cystic changes of the tuberosity. An MRI of the left shoulder revealed impingement along with acromioclavicular joint osteoarthritis. IMPRESSION: 1. Left shoulder impingement, possible rotator cuff tear. 2. Left shoulder acromioclavicular joint osteoarthritis. 3. Left shoulder calcific tendinitis. 4. Hypertension. PLAN: Left shoulder arthroscopy with subacromial decompression, arthroscopic Kirsten procedure, possible arthroscopic rotator cuff repair and debridement. MMODL / IJN: [id number] /
[~2020-10-23] MED LIST changes: +DEXAMETHASONE SOD PHOSPHATE 4 MG/ML 1 ML VIAL IV ONE; +DEXAMETHASONE SOD PHOSPHATE 4 MG/ML 1 ML VIAL ONE; +HYDROmorphone 0.5 MG/0.5 ML SYRINGE IVP PRN; -LACTATED RINGERS 1,000 ML IV SCH; +LIDOCAINE 1% (10MG/ML) FOR IV START INTRADERMA PRN; +LIDOCAINE 1% INJ 10MG/ML (20 ML MDV) ONE; +MIDAZOLAM 2 MG/2 ML VIAL IV PRN; +MIDAZOLAM 2 MG/2 ML VIAL IVP ONE; +MIDAZOLAM 2 MG/2 ML VIAL ONE; +ONDANSETRON 4 MG/2 ML VIAL ONE; +PROPOFOL 10 MG/ML 20 ML VIAL IV ONE; +ROPIVACAINE 5 MG/ML 30 ML VIAL ONE; +SUCCINYLCHOLINE CHLORIDE 100 MG/5 ML SYR IV ONE; +fentaNYL (PF) 50 MCG/ML 2 ML AMP IVP ONE; +fentaNYL (PF) 50 MCG/ML 2 ML AMP ONE
[2020-10-23] MEDS: LACTATED RINGERS 1,000 ML IV SCH ×3 (06:33→07:29)
--- NOTE | 2020-10-23 09:18 | P.OP ---
Date of Procedure: 10/23/20 Preoperative Diagnosis: Left shoulder impingement Postoperative Diagnosis: 1. Left shoulder rotator cuff tear 2. Left shoulder impingement 3. Left shoulder acromioclavicular joint osteoarthritis 4. Left shoulder superficial labral tear Procedure(s) Performed: 1. Left shoulder arthroscopic rotator cuff repair 2. Left shoulder arthroscopic subacromial decompression 3. Left shoulder arthroscopic Kirsten procedure 4. Left shoulder arthroscopic debridement labral tear Implants: 1Arthrex 5.5 swivel lock anchor Anesthesia: GETA, regional (Interscalene block) Surgeon: Yousuf Waller Director Radio News #1: Braden Sanchez Estimated Blood Loss (ml): 7 Pathology: none sent Condition: stable Disposition: PACU Indications for Procedure: 60-year-old patient seen with progressive left shoulder pain. After treatment options were discussed, she elected to proceed with arthroscopy. Operative Findings: See description of procedure Description of Procedure: Patient underwent an interscalene block by department of anesthesia. The patient was then taken to the operative suite. The patient underwent a general anesthetic by the department of anesthesia. The patient was placed into a lateral position and secured. There was appropriate padding of the bony prominence. Left shoulder was then prepped and draped in normal sterile orthopedic fashion. We placed the extremity in 10 pounds of longitudinal traction. A posterior incision was now made for a posterior working portal site. The trocar and cannula were inserted into the glenohumeral joint. Arthroscopy was initiated. Spinal needle was now inserted anteriorly, to ascertain the anterior working portal site. An incision was now made in that area, a trocar was inserted followed by a probe. Was some superficial tearing of the anterior labrum. The remainder labrum was probed and found to be stable. The biceps reveals some mild fraying but no significant tear was present. There was mild grade 1 chondromalacia of the superior glenoid. I debrided the superficial labral tear. Labrum was again probed and found to be stable. Instruments now removed from glenohumeral joint. Utilizing the posterior working portal site, the trocar and cannula were inserted into the subacromial space. Arthroscopy initiated. I made an incision 2 fingerbreadths lateral to the acromion. I introduced my trocar followed by my ArthroCare ablator. I now began ablating thick subacromial bursal tissue, which exposed the undersurface of the anterior acromion. There was diminished subacromial space. There was a very prominent anterior acromion. A motorized bur was introduced and a subacromial decompression was performed. I also excised some osteophytes off the inferior aspect of the distal clavicle. The AC joint was visualized and noted to be fairly arthritic. The motorized bur was introduced in the anterior portal site and a Kirsten procedure was performed without difficulty, decompressing the AC joint nicely. I turned my attention to the rotator cuff. There was some tearing of the distal supraspinatus tendon. Upon probing the area was a full-thickness perforation. I debrided the margins getting down to stable tendon tissue. The defect measured 11.5 cm and was freely mobile over the footprint. I abraded the footprint with a motorized bur. With the assistance of Braden HUMPHRIES I passed 3 everted mattress sutures through good bites of rotator cuff tendon. I placed a hole in the footprint area for insertion of an anchor. All 6 limbs of suture were passed through the eyelet of a 5.5 Arthrex swivel lock anchor. I placed the eyelet into the pre- punch hole. I held it in position while Braden HUMPHRIES tensioned all 6 suture limbs and the morena the anchor with good fixation noted. All residual suture limbs were now clipped. We had good compression of the tendon along the entire footprint. Instruments now removed from the portal sites. All portal sites were approximated with nylon suture. Sterile dressings were applied followed by a shoulder sling. Braden HUMPHRIES assisted in this complex case. The patient was awakened, transferred to a bed, and taken to recovery in stable condition.
[2020-10-23 09:28] VITALS: TEMP 97.6
--- NOTE | 2020-10-23 10:05 | P.ANPRN ---
Procedure Note - Anesthesia - Nerve Block Performed Left Interscalene Time Out Performed: Yes (07:05) Date of Procedure: 10/23/20 Procedure Start Time: Procedure Stop Time: Location of Patient: PreOp Indication: Acute Post-Operative Pain, Requested by Surgeon (Dr Waller) Sedation Type: Sedate with meaningful contact maintained Preparation: Sterile Prep Position: Supine Catheter: None Needle Types: Pajunk Needle Gauge: Other (see comment) (22g) Ultrasound used to visualize needle placement: Yes Ultrasound used to observe medication spread: Yes Injectate: 0.5% Ropivacaine (see comment for volume) (20cc + [id number]) Blood Aspirated: No Pain Paresthesia on Injection Noted: No Resistance on Injection: Normal Image Stored and Saved: Yes Events: Uneventful and Well Tolerated
[2020-10-23 10:36] VITALS: BP 147/69; PULSE 60; RESP 16
== END | disposition home or self-care (01) ==
LOC: OR 05:57
PROVIDERS: ATTEND Orthopaedic Surgery
DX: M75.102 Unspecified rotator cuff tear or rupture of left shoulder, not specified as traumatic (principal); M25.812 Other specified joint disorders, left shoulder; M19.012 Primary osteoarthritis, left shoulder; S43.432A Superior glenoid labrum lesion of left shoulder, initial encounter; X58.XXXA Exposure to other specified factors, initial encounter; M94.212 Chondromalacia, left shoulder; M25.712 Osteophyte, left shoulder; I10 Essential (primary) hypertension; Z90.49 Acquired absence of other specified parts of digestive tract; Z90.710 Acquired absence of both cervix and uterus; Z98.890 Other specified postprocedural states; Z79.899 Other long term (current) drug therapy
CPT/HCPCS: 64415; 76942; 29826; 29827; 29824; C1713; J2250; J1100; J2405; J0690; J2001; J3010; J2795; J0330; J2704

== ENCOUNTER → 2020-11-14 | Outpatient (CLI) | payer BC ==
--- NOTE | 2020-11-14 14:43 | FL ---
EXAMINATION TYPE: FL UGI air w esophagus DATE OF EXAM: 11/14/2020 COMPARISON: 09/21/2016 HISTORY: Weight loss, food stuck in esophagus. Patient has diarrhea and constipation. Hiatal hernia r epair 6 years ago. TECHNIQUE: A double contrast UGI study is performed. FINDINGS: Button Grader image of the abdomen shows no gross abnormality. Cholecystectomy clips. Minimal tertiary contractions of the esophagus. The esophagus shows normal emptying into the stomach. No persistent No evidence of hiatal hernia or stricture noted. Prominent aortic knob causing indenta tion of the left lateral esophagus. The stomach shows normal distensibility, peristalsis, and mucosal folds. No evidence of any mass or ulcer disease. No significant gastroesophageal reflux was seen during real time performance of this study. The duodenal bulb, sweep, and proximal small bowel loops are unremarkable. IMPRESSION: 1. Minimal tertiary contractions of the esophagus. Otherwise unremarkable Upper GI study.
== END | disposition home or self-care (01) ==
LOC: RADUSWWP 09:53
PROVIDERS: ATTEND Surgery
DX: K59.00 Constipation, unspecified (principal); T18.128A Food in esophagus causing other injury, initial encounter; R63.4 Abnormal weight loss
CPT/HCPCS: 74246

== ENCOUNTER → 2021-08-15 | Outpatient (CLI) | payer BC ==
--- NOTE | 2021-08-16 02:50 | MR ---
EXAMINATION TYPE: MR shoulder LT wo con DATE OF EXAM: 08/15/2021 COMPARISON: 09/10/2020 HISTORY: Left shoulder pain, x 2 mos, prior surgery 1 yr ago. Multiplanar multiecho imaging of the left shoulder without contrast. Glenoid mumtaz appear intact. Subscapularis tendon is intact. There is fluid in the subacromial joint space. There is slight thickening and increased signal of the supraspinatus tendon near the attachmen t on the greater tuberosity of the humerus. There is full-thickness defect seen anteriorly. There is a screw in the greater tuberosity from reconstructive surgery. There is no evidence of a fracture. No bony destructive process seen. IMPRESSION: Reconstructive surgery. Intrasubstance tear of the supraspinatus tendon near the greater tuberosity s imilar to old exam. There is small full-thickness tear on the anterior aspect. Moderate subacromial f luid accumulation consistent with bursitis. Fluid appears new compared to the old exam.
== END | disposition home or self-care (01) ==
LOC: RADMRIMAIN 11:02
PROVIDERS: ATTEND Orthopaedic Surgery
DX: M75.112 Incomplete rotator cuff tear or rupture of left shoulder, not specified as traumatic (principal)

== ENCOUNTER → 2021-09-11 | Outpatient (CLI) | payer BC ==
[2021-09-11 23:00] LABS: Basophils # (A) 0.04 X 10*3/uL (0.00-0.10); Basophils % (A) 0.9 %; Eosinophils # (A) 0.01 X 10*3/uL (0.04-0.35); Eosinophils % (A) 0.2 %; HCT 34.7 % (37.2-46.3); HGB 10.6 g/dL (12.0-15.0); Immature Grans, Automated 0.2 %; Lymphocytes # (A) 1.48 X 10*3/uL (0.90-5.00); Lymphocytes % (A) 33.7 %; MCH 28.3 pg (27.0-32.0); MCHC 30.5 g/dL (32.0-37.0); MCV 92.5 fL (80.0-97.0); Mean Platelet Volume 9.6 fL (9.5-12.2); Monocytes # (A) 0.39 X 10*3/uL (0.20-1.00); Monocytes % (A) 8.9 %; NRBC Per 100 WBC 0 /100 WBCS (0.0-0.0); Neutrophils # (A) 2.46 X 10*3/uL (1.80-7.70); Neutrophils % (A) 56.1 %; Platelet Count 294 X 10*3/uL (140-440); RBC 3.75 X 10*6/uL (4.10-5.20); RDW 12.4 % (11.5-14.5); WBC 4.39 X 10*3/uL (4.50-10.00)
[2021-09-11 23:20] LABS: Anion Gap 12.9 mmol/L (10.00-18.00); Carbon Dioxide 24.1 mmol/L (20.0-27.5); Potassium 3.8 mmol/L (3.5-5.5)
== END | disposition home or self-care (01) ==
LOC: LABPAT 13:38
PROVIDERS: ATTEND Orthopaedic Surgery
DX: Z01.812 Encounter for preprocedural laboratory examination (principal); M75.42 Impingement syndrome of left shoulder
CPT/HCPCS: 80051; 85025

== ENCOUNTER 2021-09-24 05:59 | Day surgery (SDC) | payer BC ==
[2021-09-22 08:21] VITALS: BMI 22.4
--- NOTE | 2021-09-23 15:05 | HP ---
HISTORY AND PHYSICAL REASON FOR ADMISSION: Surgery scheduled 09/24/2021 Pily Murphy is a 61-year-old patient seen with progressive left shoulder pain. We discussed options for treatment. She elected to proceed with left shoulder arthroscopy. Consent was obtained. PAST MEDICAL HISTORY: Hypertension. PAST SURGICAL HISTORY: Left shoulder arthroscopy. MEDICATIONS: Trazodone, Motrin. ALLERGIES: None. SOCIAL HISTORY: She denies tobacco use. PHYSICAL EVALUATION OF THE LEFT SHOULDER: Flexion 140 degrees, abduction 100 degrees, external rotation is 40 degrees with weakness. Tenderness along the anterior lateral acromion. Impingement positive at about 100 degrees. Drop-arm sign is positive. Distal neurovascular exam is intact. RADIOGRAPHS: Left shoulder radiographs revealed stable conversion to a flat anterior acromion. MRI left shoulder revealed a full-thickness anterior supraspinatus tendon tear. IMPRESSION: 1. Left shoulder rotator cuff tear. 2. Hypertension. PLAN: Left shoulder arthroscopy with rotator cuff repair and debridement. Surgery scheduled 09/24/2021. MMODL / IJN: [id number] /
[~2021-09-24 05:59] MED LIST changes: -DEXAMETHASONE SOD PHOSPHATE 4 MG/ML 1 ML VIAL ONE; -HYDROmorphone 0.5 MG/0.5 ML SYRINGE IVP PRN; +LACTATED RINGERS 1,000 ML IV SCH; -LIDOCAINE 1% (10MG/ML) FOR IV START INTRADERMA PRN; -LIDOCAINE 1% INJ 10MG/ML (20 ML MDV) ONE; -MIDAZOLAM 2 MG/2 ML VIAL IV PRN; -MIDAZOLAM 2 MG/2 ML VIAL IVP ONE; -MIDAZOLAM 2 MG/2 ML VIAL ONE; +ONDANSETRON 4 MG/2 ML VIAL IVP ONE; -ONDANSETRON 4 MG/2 ML VIAL ONE; -PROPOFOL 10 MG/ML 20 ML VIAL IV ONE; -ROPIVACAINE 5 MG/ML 30 ML VIAL ONE; -SUCCINYLCHOLINE CHLORIDE 100 MG/5 ML SYR IV ONE; -fentaNYL (PF) 50 MCG/ML 2 ML AMP IVP ONE; -fentaNYL (PF) 50 MCG/ML 2 ML AMP ONE
[2021-09-24] MEDS ORDERED: HYDROmorphone 0.5 MG/0.5 ML SYRINGE IVP PRN (07:00)
[2021-09-24] MEDS ORDERED: MIDAZOLAM 2 MG/2 ML VIAL IV ONE (07:07)
[2021-09-24] MEDS ORDERED: fentaNYL (PF) 50 MCG/ML 2 ML AMP ONE (07:25)
[2021-09-24] MEDS ORDERED: LIDOCAINE 1% INJ 10MG/ML (20 ML MDV) ONE ×2 (07:25)
[2021-09-24] MEDS ORDERED: SUCCINYLCHOLINE CHLORIDE 100 MG/5 ML SYR IV ONE (07:25)
[2021-09-24] MEDS ORDERED: DEXAMETHASONE SOD PHOSPHATE 4 MG/ML 1 ML VIAL ONE (07:25)
[2021-09-24] MEDS ORDERED: ROPIVACAINE 5 MG/ML 30 ML VIAL ONE (07:25)
[2021-09-24] MEDS ORDERED: PROPOFOL 10 MG/ML 20 ML VIAL IV ONE (07:25)
[2021-09-24] MEDS ORDERED: ePHEDrine 50 MG/ML 1 ML VIAL ONE (07:25)
--- NOTE | 2021-09-24 08:07 | P.ANPRN ---
Procedure Note - Anesthesia - Nerve Block Performed Left Interscalene Time Out Performed: Yes (07:) Date of Procedure: 09/24/21 Procedure Start Time: Procedure Stop Time: :17 Location of Patient: PreOp Indication: Acute Post-Operative Pain, Requested by Surgeon (DR Waller) Sedation Type: Sedate with meaningful contact maintained Preparation: Sterile Prep Position: Supine Catheter: None Needle Types: Pajunk Needle Gauge: Other (see comment) (22g) Ultrasound used to visualize needle placement: Yes Ultrasound used to observe medication spread: Yes Injectate: 0.5% Ropivacaine (see comment for volume) (20cc + 4mg Decadron) Blood Aspirated: No Pain Paresthesia on Injection Noted: No Resistance on Injection: Normal Image Stored and Saved: Yes Events: Uneventful and Well Tolerated
--- NOTE | 2021-09-24 08:58 | P.OP ---
Date of Procedure: 09/24/21 Preoperative Diagnosis: Left shoulder rotator cuff tear Postoperative Diagnosis: Left shoulder rotator cuff tear Procedure(s) Performed: Left shoulder arthroscopic rotator cuff repair Implants: 15.5 Arthrex swivel lock anchor Anesthesia: GETA, regional (Interscalene block) Surgeon: Yousuf Waller Grading Machine Operator #1: Anatoly Wellington Estimated Blood Loss (ml): 7 Pathology: none sent Condition: stable Disposition: PACU Indications for Procedure: 61-year-old patient seen with progressive left shoulder pain. After having treatment options discussed, she elected to proceed with arthroscopy. Operative Findings: see description of procedure Description of Procedure: Patient underwent an interscalene block by department of anesthesia. The patient was then taken to the operative suite. The patient underwent a general anesthetic by the department of anesthesia. The patient was placed into a lateral position and secured. There was appropriate padding of the bony prom inence. Left shoulder was then prepped and draped in normal sterile orthopedic fashion. We placed the extremity in 10 pounds of longitudinal traction. A posterior incision was now made for a posterior working portal site. The trocar and cannula were inserted into the glenohumeral joint. Arthroscopy was initiated. Spinal needle was now inserted anteriorly, to ascertain the anterior working portal site. An incision was now made in that area, a trocar was inserted followed by a probe. There was hyperemia and partial tearing long head biceps tendon. There was some grade 1 chondromalacia throughout the glenohumeral joint with no tears. The labrum was stable. I performed an arthroscopic biceps tenotomy. I probed the area again and noted good residual stability about the superior labrum. Instruments were now removed from glenohumeral joint. Utilizing the posterior working portal site, the trocar and cannula were inserted into the subacromial space. Arthroscopy initiated. I made an incision 2 fingerbreadths lateral to the acromion. I introduced my trocar followed by my ArthroCare ablator. I now began ablating thick subacromial bursal tissue, which exposed the undersurface of the anterior acromion. There appeared to be adequate subacromial space evidence of previous decompression. The acromioclavicular joint revealed a previous Kirsten procedure and was stable. I turned my attention to the rotator cuff tendon. I noted residual sutures consistent with her previous surgery and a recurrent tear along the posterior aspect of the distal supraspinatus. I now debrided some of the retained suture material. I debrided the margins of the tendon tear getting down to stable tendon tissue. The tear measured approximately 1. 52 centimeters but was freely mobile over the footprint. I abraded the footprint with a motorized bur. With the assistance of Melvin HUMPHRIES I passed 3 everted mattress sutures through good bites of rotator cuff tendon. I now punched a hole the footprint area for insertion of an anchor. All 6 limbs of suture were passed through the eyelet of a 5.5 Arthrex swivel lock anchor. I now placed the eyelet into the prepunched hole. I held it in position while Melvin HUMPHRIES tensioned all 6 suture limbs and deployed the anchor with good fixation noted. All residual suture limbs were now clipped. We had good compression of the tendon along the entire footprint. Instruments now removed from the portal sites. All portal sites were approximated with nylon suture. Sterile dressings were applied followed by a shoulder sling. Anatoly HUMPHRIES assisted in this case. The patient was awakened, transferred to a bed, and taken to recovery in stable condition.
[2021-09-24 09:01] VITALS: TEMP 96.8
[2021-09-24 09:09] VITALS: RESP 16
[2021-09-24 09:53] VITALS: PULSE 80
[2021-09-24] MEDS ORDERED: hydrALAZINE HCL 20 MG/ML 1 ML VIAL ONE (10:01)
[2021-09-24] MEDS ORDERED: hydrALAZINE HCL 20 MG/ML 1 ML VIAL IVP ONE (10:05)
[2021-09-24 10:38] VITALS: BP 155/76
== END 2021-09-24 10:47 | disposition home or self-care (01) ==
LOC: OR 05:59
PROVIDERS: ATTEND Orthopaedic Surgery
DX: M75.102 Unspecified rotator cuff tear or rupture of left shoulder, not specified as traumatic (principal); M94.212 Chondromalacia, left shoulder; I10 Essential (primary) hypertension; Z79.899 Other long term (current) drug therapy
CPT/HCPCS: 64415; 76942; 29827; C1713; J2250; J0360; J1100; J2405; J0690; J2001; J3010; J2795; J0330; J2704

== ENCOUNTER → 2021-12-02 | Outpatient (CLI) | payer BC ==
--- NOTE | 2021-12-02 22:33 | CT ---
EXAMINATION TYPE: CT abdomen pelvis w con DATE OF EXAM: 12/02/2021 COMPARISON: CT dated 03/22/2018 HISTORY: abnormal weight loss CT DLP: 408.1 mGycm Automated exposure control for dose reduction was used. TECHNIQUE: Helical acquisition of images was performed from the lung bases through the pelvis. CONTRAST: Performed with Oral Contrast and with IV Contrast, patient injected with 100 mL of Isovue 300. FINDINGS: LUNG BASES: No significant abnormality is appreciated. LIVER/GB: Previous cholecystectomy. No definite hepatic focal lesion. PANCREAS: No significant abnormality is seen. SPLEEN: No significant abnormality is seen. ADRENALS: No significant abnormality is seen. KIDNEYS: No significant abnormality is seen. FREE AIR: No free air is visualized. RETROPERITONEAL ADENOPATHY: None visualized REPRODUCTIVE ORGANS: Previous hysterectomy. No gross adnexal mass. URINARY BLADDER: No significant abnormality is seen. PELVIC ADENOPATHY: No pathologically enlarged lymph nodes. OSSEOUS STRUCTURES: Osteopenia. No gross aggressive bone lesion. BOWEL: Questionable focal wall thickening of the most proximal portion of the stomach, recommend cor relation with gastroscopy results. Unremarkable remainder of the stomach. Duodenal diverticulum. Dillon edly reduced caliber of a small bowel loop seen in the lower abdomen and passing posterior to the sup erior mesenteric vessels (image #46, series 3) which could represent a form of uncomplicated internal hernia. No evidence of bowel obstruction. Focal wall thickening of a small bowel loop in the pelvis best appreciated in image #44, series 7. Colonic diverticulosis with scattered segments of nonspecifi c colonic wall thickening. Recommend correlation with colonoscopy results. OTHER: Scattered arterial atherosclerotic calcifications. Small amount of free pelvic fluid. Small fa t-containing right inguinal hernia. IMPRESSION: Focal wall thickening of the most proximal portion of the stomach, underlying neoplastic process harish ot be excluded. Recommend correlation with gastroscopy results. Other incidental findings and recomme ndations as described above.
== END | disposition home or self-care (01) ==
LOC: RADCTMAIN 18:01
PROVIDERS: ATTEND Internal Medicine Gastroenterology
DX: R63.4 Abnormal weight loss (principal)
CPT/HCPCS: 74177; Q9967

== ENCOUNTER → 2021-12-31 | Outpatient (CLI) | payer BC ==
--- NOTE | 2022-01-01 07:24 | US ---
EXAMINATION TYPE: US carotid duplex BILAT DATE OF EXAM: 12/31/2021 COMPARISON: NONE CLINICAL HISTORY: R55 SYNCOPE. SYNCOPE, LT NECK PAIN EXAM MEASUREMENTS: RIGHT: Peak Systolic Velocity (PSV) cm/sec ----- Right CCA: 82.8 ----- Right ICA: 103 ----- Right ECA: 113 ICA/CCA ratio: 1.24 RIGHT: End Diastole cm/sec ----- Right CCA: 19.2 ----- Right ICA: 35.0 ----- Right ECA: 16.1 LEFT: Peak Systolic Velocity (PSV) cm/sec ----- Left CCA: 70.1 ----- Left ICA: 87.6 ----- Left ECA: 89.5 ICA/CCA ratio: 1.25 LEFT: End Diastole cm/sec ----- Left CCA: 22.4 ----- Left ICA: 27.3 ----- Left ECA: 11.5 VERTEBRALS (direction of flow): Right Vertebral: Antegrade Left Vertebral: Antegrade Rhythm: Normal BILATERAL TORTUOUS CCA VESSELS, NO SIGNIFICANT STENOSIS SEEN, PLAQUE NOTE IN BULB AND PROX ICA ARE A IMPRESSION: No evidence for hemodynamically significant stenosis. Criteria for Assigning % of Stenosis / Diameter reduction (Estimation based on the indirect measurements of the internal carotid artery velocities (ICA PSV). 1. Normal (no stenosis)=ICA PSV < 125 cm/s: ratio < 2.0: ICA EDV<40 cm/s. 2. Less than 50% stenosis=ICA PSV < 125 cm/s: ratio < 2.0: ICA EDV<40 cm/s. 3. 50 to 69% stenosis=ICA PSV of 125 to 230 cm/s: ration 2.0 ? 4.0: ICA EDV 40-100 cm/s. 4. Greater than 70% stenosis to near occlusion= ICA PSV > 230 cm/s: ratio > 4.0: ICA EDV > 100 cm/s. 5. Near occlusion= ICA PSV velocities may be low or undetectable: variable ratio and ICA EDV. 6. Total occlusion=unable to detect flow.
== END | disposition home or self-care (01) ==
LOC: RADUSWWP 16:26
PROVIDERS: ATTEND Family Medicine
DX: R55 Syncope and collapse (principal); M54.2 Cervicalgia
CPT/HCPCS: 93880

== ENCOUNTER 2022-01-06 06:21 | Day surgery (SDC) | payer BC ==
[2022-01-05 09:40] VITALS: BMI 21.7
[~2022-01-06 06:21] MED LIST changes: -DEXAMETHASONE SOD PHOSPHATE 4 MG/ML 1 ML VIAL IV ONE; +LIDOCAINE 1% (10MG/ML) FOR IV START INTRADERMA PRN; -ONDANSETRON 4 MG/2 ML VIAL IVP ONE
[2022-01-06 06:52] VITALS: TEMP 97.2
[2022-01-06] MEDS ORDERED: PROPOFOL 10 MG/ML 20 ML VIAL IV ONE (07:05)
[2022-01-06] MEDS ORDERED: LIDOCAINE 2% INJ 20 MG/ML (2 ML VIAL) ONE (07:05)
--- NOTE | 2022-01-06 07:24 | P.PCN ---
Date of Procedure: 01/06/22 Procedure(s) Performed: Brief history: Patient is a pleasant 61-year-old white female scheduled for an elective upper endoscopy as well as colonoscopy as a part of evaluation of GERD/intermittent dysphagia to solids and change in bowel habits. She also has progressive weight loss of almost 40 pounds in the last 3 years duration. Procedure performed: Esophagogastroduodenoscopy with biopsy Colonoscopy Preoperative diagnosis: intermittent dysphagia to solids Change in bowel habits and progressive weight loss Anesthesia: MAC Procedure: After informed consent was obtained from the patient was brought into the endoscopy unit and IV sedation was administered by anesthesia under continuous monitoring. Initially upper endoscopy was done. The Olympus GF 160 video endoscope was inserted inserted into the mouth and esophagus intubated without any difficulty and was gradually advanced into the stomach and duodenum and carefully examined. The bulb and second part of the duodenum appeared normal. biopsies were done from the duodenum to rule out celiac disease. The scope was then withdrawn into the stomach adequately insufflated with air and upon careful examination the antrum and bodyhad diffuse gastritis with atrophic appearing mucosain the body the stomach and multiple biopsies were done from this area. , cardia and fundus appeared normal. The scope was then withdrawn into the esophagus. The GE junction was located at 40 cm to the incisors. It appeared regular with no erythema erosions or ulcerations. Rest of the esophagus appeared normal. biopsies were done from the mid and distal esophagus to rule out eosinophilic esophagitis. Patient tolerated the procedure well. At this time the patient continued to remain sedation. Initial digital rectal examination was normal. Olympus CF 160 video colonoscope was then inserted into the rectum and gradually advanced to the cecum without any difficulty. Careful examination was performed as the scope was gradually being withdrawn. The prep was excellent. The cecum, ascending colon, transverse colon, descending colon, sigmoid colon and rectum appeared normal. scattered sigmoid diverticulosis. Retroflexion was performed in the rectum and no lesions were noted. Patient tolerated the procedure well. Impression: 1. Upper endoscopy revealed diffuse gastritis involving the body and antrum some atrophic appearing mucosa is post multiple biopsies 2. Colonoscopy revealed scattered sigmoid diverticulosis but no evidence of colorectal neoplasia Recommendations: Findings of this examination were discussed with the patient as well as her family. She was advised to follow with the biopsy results. Recommend repeat screening colonoscopy in 10 years.
[2022-01-06 07:43] VITALS: BP 161/97; PULSE 78; RESP 16
== END 2022-01-06 08:19 | disposition home or self-care (01) ==
LOC: ORWHC2ENDO 06:21
PROVIDERS: ATTEND Internal Medicine Gastroenterology
DX: K21.00 Gastro-esophageal reflux disease with esophagitis, without bleeding (principal); K57.30 Diverticulosis of large intestine without perforation or abscess without bleeding; K29.50 Unspecified chronic gastritis without bleeding; I25.10 Atherosclerotic heart disease of native coronary artery without angina pectoris; I10 Essential (primary) hypertension; M19.90 Unspecified osteoarthritis, unspecified site; Z79.899 Other long term (current) drug therapy; Z80.0 Family history of malignant neoplasm of digestive organs; Z80.51 Family history of malignant neoplasm of kidney; Z82.49 Family history of ischemic heart disease and other diseases of the circulatory system; Z84.1 Family history of disorders of kidney and ureter; Z82.5 Family history of asthma and other chronic lower respiratory diseases; Z82.61 Family history of arthritis
CPT/HCPCS: 88305; 45378; 43239; J2704; J2001

== ENCOUNTER 2022-01-30 21:29 | Observation (INO) | payer BC ==
--- NOTE | 2022-01-30 22:25 | XR ---
EXAMINATION TYPE: XR chest 2V DATE OF EXAM: 01/30/2022 COMPARISON: 09/22/2019 HISTORY: Chest pain TECHNIQUE: 2 views FINDINGS: Heart is normal. Lungs are clear of infiltrate. No heart failure. Costophrenic angles are c lear. Bony thorax is intact. IMPRESSION: No active cardiopulmonary disease. Normal heart. No adverse change.
--- NOTE | 2022-01-30 22:49 | ED ---
Chest Pain HPI - General Chief Complaint: Chest Pain Stated Complaint: Chest pain; neck pain Time Seen by Provider: 01/30/22 22:48 Source: patient, RN notes reviewed Mode of arrival: wheelchair - History of Present Illness Initial Comments: This is a pleasant 61-year-old female with a history of hypertension. She presents to the emergency department today complaining of intermittent chest pains was present for the past 2 weeks. She's also had neck pain. Patient saw her regular physician and had neck x-rays done and an ultrasound done. Patient states today she was at a local restaurant and developed the chest pain again. It was there for several minutes, felt like a squeezing sensation to the anterior chest with radiation to the shoulder or neck. Related to activity. Patient states she then felt lightheaded. Patient ended up going home and found out that her blood pressure was very elevated patient presents for evaluation. She states the chest pain has resolved at this time. Patient does have a significant family history of cardiac disease in her father who had heart problems starting in his 40s. No headache, no fever or chills, no changes in vision or hearing, no sore throat or difficulty with speech, no neck pain, no shortness of breath, no abdominal pain, no nausea or vomiting, no changes in urination or bowel movements, no numbness or tingling, no extremity pain, no skin rashes or lesions. Past medical, surgical, social, and family history reviewed. MD Complaint: chest pain - Related Data Home Medications Medication Instructions Recorded Confirmed traZODone HCL [Desyrel] 100 mg PO HS 10/07/19 01/05/22 Acetaminophen Tab [Tylenol] 650 mg PO Q6H PRN 10/14/20 01/05/22 Ibuprofen 600 mg PO Q8H PRN 10/14/20 01/05/22 Escitalopram Oxalate [Lexapro] 20 mg PO HS 09/22/21 01/05/22 lisinopriL [Zestril] 20 mg PO QAM 09/22/21 01/05/22 Allergies Allergy/AdvReac Type Severity Reaction Status Date / Time No Known Allergies Allergy Verified 01/30/22 22:06 Review of Systems ROS Statement: Those systems with pertinent positive or pertinent negative responses have been documented in the HPI. ROS Other: All systems not noted in ROS Statement are negative. EKG Findings - EKG Comments: EKG Findings:: EKG done at 2149 and read by the ED attending physician reveals sinus rhythm with short IL interval. Rate of 67, normal intervals otherwise. Normal axis. No acute ST or T-wave changes. When compared to the previous study from September 2020 patient does have an amplitude change noted in the limb leads. No other acute changes noted. Past Medical History Past Medical History: Chest Pain / Angina, GERD/Reflux, Hypertension, Osteoarthritis (OA), Syncope Additional Past Medical History / Comment(s): Pancreatitis. UTI History of Any Multi-Drug Resistant Organisms: ESBL Date of last positivie culture/infection: 03/21/18 MDRO Source:: ESBL URINE Past Surgical History: Cholecystectomy, Heart Catheterization, Hysterectomy, Tubal Ligation Additional Past Surgical History / Comment(s): had PARTIAL hysterectomy, HIATAL HERNIA REPAIR, ERCP, BLADDER SUSPENSION X2, CYSTOCELE, RECTOCELE REPAIR Past Anesthesia/Blood Transfusion Reactions: Postoperative Nausea & Vomiting (PONV) Past Psychological History: Anxiety Smoking Status: Never smoker Past Alcohol Use History: None Reported Past Drug Use History: None Reported - Past Family History Father Family Medical History: Cancer Additional Family Medical History / Comment(s): KIDNEY/COLON CANCER. Mother Family Medical History: Asthma, Hypertension, Osteoarthritis (OA) Course Vital Signs 01/30/22 01/31/22 22:00 00:02 Temperature 98.4 F Pulse Rate 65 78 Respiratory 19 16 Rate Blood Pressure 181/85 191/88 O2 Sat by Pulse 99 99 Oximetry - Reevaluation(s) Reevaluation #1: 01/31/22 00:31 Medical record is reviewed Symptoms are improved here in the emergency department Patient is informed of results and questions answered Patient in no distress Patient's troponin is negative. EKG shows no definitive acute changes. Patient's heart score is 3. Chest Pain MDM - MDM Patient states her blood pressure was 200/130 home. Differential includes chest wall pain, muscular skeletal pain. However due to the anterior chest pain with lightheadedness. Cardiac etiology cannot be ruled out and needs to be entertained. Does not appear to be consistent with heart failure or pulmonary embolism. Does not appear to be consistent with infectious etiology Patient be admitted for observation, chest pain protocol, patient's heart score is 3. Patient currently pain-free. All findings discussed with the patient. All questions answered. Supervising physician Dr. Lane As discussed with the [facility] care physician for admission Disposition Clinical Impression: Chest pain Disposition: ADMITTED IP TO THIS [facility] Condition: Stable Time of Disposition: 00:30 Decision to Admit Reason: Admit from EC Decision Time: 00:31
[2022-01-30] MEDS ORDERED: ASPIRIN 81 MG PO STA (22:53)
[2022-01-30] MEDS ORDERED: NITROGLYCERIN OINT 1 INCH/GM PACKET TOPICAL STA (22:53)
[2022-01-30 23:40] LABS: Basophils % (A) 1 %; Eosinophils % (A) 0 %; HCT 36.2 % (34.0-46.0); HGB 11.9 gm/dL (11.4-16.0); Lymphocytes # (A) 1.3 k/uL (1.0-4.8); Lymphocytes % (A) 31 %; MCHC 32.8 g/dL (31.0-37.0); MCV 91.4 fL (80.0-100.0); Mean Platelet Volume 7.8; Monocytes # (A) 0.3 k/uL (0-1.0); Monocytes % (A) 8 %; Neutrophils # (A) 2.4 k/uL (1.3-7.7); Neutrophils % (A) 57 %; Platelet Count 241 k/uL (150-450); RBC 3.96 m/uL (3.80-5.40); RDW 12.8 % (11.5-15.5); WBC 4.2 k/uL (3.8-10.6)
[2022-01-30 23:44] LABS: ALT 27 U/L (4-34); AST 35 U/L (14-36); African American GFR (CKD) >90 (>60 ml/min/1.73 sqM); Albumin 4.5 g/dL (3.5-5.0); Alkaline Phosphatase 74 U/L (38-126); Anion Gap 7 mmol/L; Blood Urea Nitrogen 11 mg/dL (7-17); Calcium 9.3 mg/dL (8.4-10.2); Carbon Dioxide 27 mmol/L (22-30); Chloride 104 mmol/L (98-107); Glucose 87 mg/dL (74-99); Magnesium 1.9 mg/dL (1.6-2.3); Non-African American GFR(CKD) >90 (>60 ml/min/1.73 sqM); Potassium 3.9 mmol/L (3.5-5.1); Sodium 138 mmol/L (137-145); Total Bilirubin 1.1 mg/dL (0.2-1.3); Total Protein 7.5 g/dL (6.3-8.2)
[2022-01-30 23:46] LABS: INR 0.9 (<1.2); Partial Thromboplastin Time 24.9 sec (22.0-30.0); Prothrombin Time 10.1 sec (9.0-12.0)
[2022-01-31] MEDS ORDERED: ACETAMINOPHEN TAB 325 MG TAB PO PRN (00:35)
[2022-01-31] MEDS ORDERED: NALOXONE 0.4 MG/ML 1 ML VIAL IV PRN (00:35)
--- NOTE | 2022-01-31 01:36 | P.HPIM ---
History of Present Illness H&P Date: 01/31/22 Chief Complaint: Chest pain 61-year-old female with hypertension Patient comes in complaining of chest pain she reports that after having dinner she started experiencing left-sided chest pain and central chest pain described as throbbing pain not associated with any dizziness lightheadedness nausea vomiting denies any associated profuse sweating or shortness of breath. However she claims that she's been experiencing frequent episodes of similar pain when she exerts herself for which she decided to come in for evaluation. Pain resolved on its own in route to the hospital. She reports that years ago she had a left heart cath which was reported to her to be normal. She denies any tobacco smoking denies any history of diabetes. She denies any recent traveling or hospitalization, denies any history of blood clots. Initial workup in the ED was per much unremarkable, EKG showed no acute ST changes Review of Systems Pertinent positives as noted in HPI. All other systems were reviewed and are negative Past Medical History Past Medical History: Chest Pain / Angina, GERD/Reflux, Hypertension, Osteoarthritis (OA), Syncope Additional Past Medical History / Comment(s): Pancreatitis. UTI History of Any Multi-Drug Resistant Organisms: ESBL Date of last positivie culture/infection: 03/21/18 MDRO Source:: ESBL URINE Past Surgical History: Cholecystectomy, Heart Catheterization, Hysterectomy, Tubal Ligation Additional Past Surgical History / Comment(s): had PARTIAL hysterectomy, HIATAL HERNIA REPAIR, ERCP, BLADDER SUSPENSION X2, CYSTOCELE, RECTOCELE REPAIR Past Anesthesia/Blood Transfusion Reactions: Postoperative Nausea & Vomiting (PONV) Past Psychological History: Anxiety Smoking Status: Never smoker Past Alcohol Use History: None Reported Past Drug Use History: None Reported - Past Family History Father Family Medical History: Cancer Additional Family Medical History / Comment(s): KIDNEY/COLON CANCER. Mother Family Medical History: Asthma, Hypertension, Osteoarthritis (OA) Medications and Allergies Home Medications Medication Instructions Recorded Confirmed Type traZODone HCL [Desyrel] 100 mg PO HS 10/07/19 01/05/22 History Acetaminophen Tab [Tylenol] 650 mg PO Q6H PRN 10/14/20 01/05/22 History Ibuprofen 600 mg PO Q8H PRN 10/14/20 01/05/22 History Escitalopram Oxalate [Lexapro] 20 mg PO HS 09/22/21 01/05/22 History lisinopriL [Zestril] 20 mg PO QAM 09/22/21 01/05/22 History Allergies Allergy/AdvReac Type Severity Reaction Status Date / Time No Known Allergies Allergy Verified 01/30/22 22:06 Physical Exam Vitals: Vital Signs Temp Pulse Resp BP Pulse Ox 01/31/22 00:02 78 16 191/88 99 01/30/22 22:00 98.4 F 65 19 181/85 99 Intake and Output 01/30/22 01/30/22 01/31/22 14:59 22:59 06:59 Other: Weight 56.699 kg Constitutional: No acute distress, conversant, pleasant Eyes: Anicteric sclerae, moist conjunctiva, Pupils equal round reactive to light ENMT: NC/AT Oropharynx clear, no erythema, or exudates Neck: Supple, FROM, no masses, or JVD No carotid bruits No thyromegaly Lungs: Clear to auscultation Clear to percussion Normal respiratory effort, no accessory muscle use Cardiovascular: Heart regular in rate and rhythm, No murmurs, gallops, or rubs No peripheral edema Abdominal: Soft Nontender, no guarding, rebound or rigidity Abdomen moving with respiration Normoactive bowel sounds No hepatomegaly, No splenomegaly No palpable mass No abdominal wall hernia noted Skin: Normal temperature, tone, texture, turgor No induration No subcutaneous nodules No rash, lesions No ulcers Extremities: No digital cyanosis No clubbing Pedal pulses intact and symmetrical Radial pulses intact and symmetrical No calf tenderness Psychiatric: Alert and oriented to person, place and time Appropriate affect fair judgement Neuro Muscles Strength 5/5 in all 4 extremities Sensation to light touch grossly present throughout Cranial nerves II-XII grossly intact No focal sensory deficits Lymphatics: no palpable cervical or supraclavicular , or inguinal lymph nodes Results CBC & Chem 7: 01/30/22 23:19 01/30/22 23:19 Labs: Abnormal Lab Results - Last 24 Hours (Table) 01/30/22 Range/Units 23:19 Creatinine 0.51 L (0.52-1.04) mg/dL Assessment and Plan Assessment: atypical chest pain rule out ACS EKG no acute changes CXR no acute pathology trops negative X2 conveyor monitor monitor vital signs ASA, statin cardiology consult A1c, lipid panel , TSH pain control Chronic conditions Hypertension resume lisinopril Blood pressure poorly controlled When necessary clonidine 0.2 mg for systolic blood pressure more than 180 DVT prophylaxis heparin subcu 3 times a day Full code
[2022-01-31] MEDS: HEPARIN SODIUM,PORCINE/PF 5,000 UNIT/0.5 ML SYRINGE SQ SCH ×2 (08:40→16:30)
[2022-01-31] MEDS ORDERED: lisinopriL 20 MG TAB PO SCH (09:00)
[2022-01-31] MEDS ORDERED: NITROGLYCERIN SL TABS 0.4 MG TAB SUBLINGUAL PRN (12:39)
[2022-01-31] MEDS ORDERED: BACLOFEN 10 MG TAB PO PRN (12:42)
[2022-01-31] MEDS ORDERED: ESCITALOPRAM 10 MG TAB PO SCH (12:45)
--- NOTE | 2022-01-31 12:48 | P.PN ---
Subjective Progress Note Date: 01/31/22 Subjective: Patient seen and examined. States the chest and this resolved. States his symptoms been ongoing for the past 1 month because about 2-3 times a week. The pain is mainly located on the left side of the chest and feels like pain that goes up also in the left neck. 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 has a history of catheterization more than 6 years ago wh ich per her was negative. Patient states she has extensive family history of heart disease including her father who had CAD in his 40s ended up getting a bypass surgery. A brother has history of stents. Physical exam: Vital signs reviewed General: [nontoxic], [no distress], [appears at stated age] Derm: [warm], [dry] Head: [atraumatic], [normocephalic], [symmetric] Eyes: [EOMI], [no lid lag], [anicteric sclera] Mouth: [no lip lesion], [mucus membranes moist] Cardiovascular: [S1S2 reg], [no murmur], [positive posterior tibial pulse bilateral], Lungs: [CTA bilateral], [no rhonchi, no rales] , [no accessory muscle use] Abdominal: [soft], [ nontender to palpation], [no guarding], [no appreciable organomegaly] Ext: [no gross muscle atrophy], [no edema], [no contractures] Assessment: Atypical anginal pain Accelerated hypertension Mood Disorders Family history of premature CAD Plan: Continue aspirin 81 mg daily Continue lisinopril 20 mg daily Continue Lexapro, trazodone, baclofen Nitroglycerin when necessary EKG reviewed. Proximal negative Cardiology consultation Check echocardiogram and stress echo test ordered. Objective - Vital Signs Vital signs: Vital Signs Temp 97.6 F 01/31/22 12:39 Pulse 69 01/31/22 12:39 Resp 18 01/31/22 12:39 BP 180/90 01/31/22 12:39 Pulse Ox 99 01/31/22 12:39 FiO2 Intake & Output 01/30/22 01/31/22 01/31/22 18:59 06:59 18:59 Weight 56.699 kg - Labs CBC & Chem 7: 01/30/22 23:19 01/30/22 23:19 Labs: Abnormal Lab Results - Last 24 Hours (Table) 01/30/22 Range/Units 23:19 Creatinine 0.51 L (0.52-1.04) mg/dL
[2022-01-31] MEDS ORDERED: traZODone HCL 100 MG TAB PO SCH (21:00)
[2022-02-01] MEDS: HEPARIN SODIUM,PORCINE/PF 5,000 UNIT/0.5 ML SYRINGE SQ SCH (00:17)
[2022-02-01 00:34] LABS: Appearance,Urine Clear (Clear); Bilirubin,Urine Negative (Negative); Blood,Urine Small (Negative); Color,Urine Yellow; Glucose,Urine (UA) Negative (Negative); Ketones,Urine Negative (Negative); Leukocyte Esterase,Urine Large (Negative); Mucus,Urine Rare /hpf; Nitrite,Urine Negative (Negative); Protein,Urine Trace (Negative); RBC,Urine 6 /hpf (0-5); Specific Gravity,Urine 1.017 (1.001-1.035); Squamous Epithelial Cell,Urine 4 /hpf (0-4); Urobilinogen,Urine <2.0 mg/dL (<2.0); WBC,Urine 44 /hpf (0-5)
[2022-02-01 04:06] VITALS: PULSE 65; RESP 15
[2022-02-01 07:55] VITALS: BP 131/76; TEMP 97.7
[2022-02-01] MEDS ORDERED: ASPIRIN 81 MG PO SCH (09:00)
--- NOTE | 2022-02-01 09:42 | P.CRDCN ---
History of Present Illness Consult date: 02/01/22 Chief complaint: Chest discomfort History of present illness: The patient is a very pleasant 61-year-old female patient with a past medical history significant for hypertension presented to the hospital complaining of chest discomfort. For the last few weeks she has been experiencing intermittent episodes of chest discomfort as a dull dull/a pressure in the middle of the chest was some radiation to the neck. The discomfort is not exertion related. No associated symptoms of shortness of breath or dizziness or lightheadedness or any feeling of heart racing or fluttering or any presyncope or syncope. When she presented to the hospital she was mildly hypertensive but currently her pressure has been under good control and since then she has been chest pain- free. She underwent a workup she showing sinus rhythm without any ST or T-wave abnormalities and also she underwent cardiac enzymes came in to be unremarkable. She remains chest pain-free. She scheduled to undergo a stress test and echocardiogram tomorrow and which is reasonable but the patient would like to go home and have been done as an outpatient. I advised the patient to get up and around and if she is chest pain-free she potentially can be discharged home and have the testing done as an outpatient and she was advised to call and come back to the hospital she develop any more episodes of chest discomfort. Past Medical History Past Medical History: Chest Pain / Angina, GERD/Reflux, Hypertension, Osteoarthritis (OA), Syncope Additional Past Medical History / Comment(s): Pancreatitis. UTI History of Any Multi-Drug Resistant Organisms: ESBL Date of last positivie culture/infection: 03/21/18 MDRO Source:: ESBL URINE Past Surgical History: Cholecystectomy, Heart Catheterization, Hysterectomy, Tub al Ligation Additional Past Surgical History / Comment(s): had PARTIAL hysterectomy, HIATAL HERNIA REPAIR, ERCP, BLADDER SUSPENSION X2, CYSTOCELE, RECTOCELE REPAIR Past Anesthesia/Blood Transfusion Reactions: Postoperative Nausea & Vomiting (PONV) Past Psychological History: Anxiety Additional Psychological History / Comment(s): . Smoking Status: Never smoker Past Alcohol Use History: None Reported Past Drug Use History: None Reported - Past Family History Father Family Medical History: Cancer Additional Family Medical History / Comment(s): KIDNEY/COLON CANCER. Mother Family Medical History: Asthma, Hypertension, Osteoarthritis (OA) Medications and Allergies Home Medications Medication Instructions Recorded Confirmed Type traZODone HCL [Desyrel] 100 mg PO HS PRN 04/11/20 08/06/22 History Aspirin EC [Ecotrin Low Dose] 81 mg PO DAILY 01/31/22 01/31/22 History Baclofen 10 mg PO BID PRN 01/31/22 01/31/22 History Escitalopram Oxalate [Lexapro] 10 mg PO DAILY 01/31/22 01/31/22 History lisinopriL [Zestril] 10 mg PO DAILY 01/31/22 01/31/22 History Allergies Allergy/AdvReac Type Severity Reaction Status Date / Time No Known Allergies Allergy Verified 01/31/22 11:14 Physical Exam Vitals: Vital Signs Temp Pulse Pulse Resp BP BP Pulse Ox 02/01/22 07:00 97.7 F 65 15 131/76 99 02/01/22 03:50 97.8 F 65 15 122/72 96 01/31/22 19:15 97.6 F 62 17 158/80 100 01/31/22 14:32 98.3 F 68 18 171/87 99 01/31/22 12:39 97.6 F 69 18 180/90 99 01/31/22 11:14 98 F 70 16 129/74 97 Intake and Output 01/31/22 02/01/22 02/01/22 22:59 06:59 14:59 Intake Total 222 Balance 222 Intake: Oral 222 Other: # Voids 4 3 - Constitutional General appearance: no acute distress - Respiratory Respiratory: bilateral: CTA - Cardiovascular Rhythm: regular Heart sounds: normal: S1, S2 Abnormal Heart Sounds: systolic murmur Results 01/30/22 23:19 01/30/22 23:19 Current Medications Generic Name Dose Route Start Last Admin Trade Name Freq PRN Reason Stop Dose Admin Acetaminophen 650 mg 01/31/22 00:35 01/31/22 03:33 Acetaminophen Tab 325 Mg Tab PO 650 mg Q6HR PRN Administration Mild Pain or Fever > 100.5 Aspirin 81 mg 02/01/22 09:00 Aspirin 81 Mg PO DAILY MICHAEL Baclofen 10 mg 01/31/22 12:42 Baclofen 10 Mg Tab PO TID PRN Muscle Spasm Escitalopram Oxalate 10 mg 01/31/22 12:45 01/31/22 15:14 Escitalopram 10 Mg Tab PO 10 mg DAILY MICHAEL Administration Heparin Sodium (Porcine) 5,000 unit 01/31/22 08:00 02/01/22 00:17 Heparin Sodium,Porcine/Pf 5,000 Unit/0.5 Ml Syringe SQ 5,000 unit Q8HR MICHAEL Administration Lisinopril 20 mg 01/31/22 09:00 01/31/22 08:40 Lisinopril 20 Mg Tab PO 20 mg QAM MICHAEL Administration Naloxone HCl 0.2 mg 01/31/22 00:35 Naloxone 0.4 Mg/Ml 1 Ml Vial IV Q2M PRN Opioid Reversal Nitroglycerin 0.4 mg 01/31/22 12:39 Nitroglycerin Sl Tabs 0.4 Mg Tab SUBLINGUAL Q5M PRN Chest Pain Protocol Trazodone HCl 100 mg 01/31/22 21:00 01/31/22 21:38 Trazodone Hcl 100 Mg Tab PO 100 mg HS MICHAEL Administration Intake and Output 01/31/22 02/01/22 02/01/22 22:59 06:59 14:59 Intake Total 222 Balance 222 Intake: Oral 222 Other: # Voids 4 3 01/30/22 23:19 01/30/22 23:19 Assessment and Plan Assessment: Assessment #1 intermittent episodes of chest discomfort appeared to be atypical #2 hypertension Plan #1 acute coronary event was ruled out #2 stress test to rule out severe CAD and that can be done as an outpatient as far as she remains asymptomatic #3 thank you for allowing us participate in her care
[2022-02-01 09:50] LABS: Basophils # (A) 0.03 X 10*3/uL (0.00-0.10); Basophils % (A) 0.7 %; Eosinophils # (A) 0.01 X 10*3/uL (0.04-0.35); Eosinophils % (A) 0.2 %; HCT 35.2 % (37.2-46.3); HGB 10.8 g/dL (12.0-15.0); Immature Grans, Automated 0.2 %; Lymphocytes # (A) 1.99 X 10*3/uL (0.90-5.00); MCH 27.7 pg (27.0-32.0); MCHC 30.7 g/dL (32.0-37.0); MCV 90.3 fL (80.0-97.0); Monocytes # (A) 0.52 X 10*3/uL (0.20-1.00); Monocytes % (A) 11.8 %; NRBC Per 100 WBC 0 /100 WBCS (0.0-0.0); Neutrophils # (A) 1.86 X 10*3/uL (1.80-7.70); Neutrophils % (A) 42.1 %; Platelet Count 237 X 10*3/uL (140-440); RDW 12.7 % (11.5-14.5); WBC 4.42 X 10*3/uL (4.50-10.00)
[2022-02-01 10:44] LABS: African American GFR (CKD) 113.4 (60.0-200.0); BUN/Creat Ratio 15.86 Ratio (12.00-20.00); Blood Urea Nitrogen 10.1 mg/dL (9.0-27.0); Calcium 9.2 mg/dL (8.7-10.3); Carbon Dioxide 26.4 mmol/L (20.0-27.5); Chloride 105 mmol/L (96-109); Chol/HDL Ratio 2.21 Ratio; Glucose 95 mg/dL (70-110); LDL Cholesterol,Calculated 77.3 mg/dL (0.0-131.0); Non-African American GFR(CKD) 97.8 (60.0-200.0); Potassium 4.1 mmol/L (3.5-5.5); Sodium 140 mmol/L (135-145)
--- NOTE | 2022-02-01 11:19 | CA ---
Transthoracic Echo Report Name: Pily Murphy Age: 61 Gender: F : 1960 Exam Date: 01/31/2022 13:23 Exam Location: [facility] Ht (in): 64 Wt (lb): 124 Ordering Physician: Tameka Roberts MD Attending/Referring Phys: Alejandra English;[id number] Online Merchandising Manager Ana Maria Richey RDCS Procedure CPT: Indications: Chest Pain Cardiac Hx: Technical Quality: Good Contrast 1: Total Dose (mL): Contrast 2: Total Dose (mL): MEASUREMENTS (Male / Female) Normal Values 2D ECHO LA Volume 68.8 cm??? 18 - 58 / 22 - 52 cm??? M-MODE Aortic Root Diameter MM 2.9 cm LA Systolic Diameter MM 4.3 cm LA Ao Ratio MM 1.5 MV E Point Septal Separation 0.7 cm AV Cusp Separation MM 2.1 cm DOPPLER MV Area PHT 3.9 cm??? Mitral E Point Velocity 84.2 cm/s Mitral A Point Velocity 78.0 cm/s Mitral E to A Ratio 1.1 MV Deceleration Time 196.1 ms TR Peak Velocity 244.5 cm/s TR Peak Gradient 23.9 mmHg Right Ventricular Systolic Press 28.0 mmHg FINDINGS Left Ventricle Left ventricular ejection fraction is estimated at 50-55%. Right Ventricle Normal right ventricular size and function. Right ventricular systolic pressure within normal limits. Right Atrium Normal right atrial size. Left Atrium Moderately increased left atrial volume. Mildly increased left atrial area. Mitral Valve Mitral valve thickened. Moderate mitral regurgitation. Aortic Valve Trileaflet aortic valve. Tricuspid Valve Structurally normal tricuspid valve. Mild tricuspid regurgitation. Pulmonic Valve Structurally normal pulmonic valve. Pericardium No thickening/calcification of the pericardium. Normal pericardium. Aorta Normal size aortic root and proximal ascending aorta. CONCLUSIONS Normal left ventricular dimension and systolic function Moderate mitral regurgitation Previewed by: Dr. Remi Burger MD (Electronically Signed) Final Date: 01 February 2022 11:18
--- NOTE | 2022-02-01 11:21 | P.DS ---
Providers Date of admission: 01/31/22 02:00 Expected date of discharge: 02/01/22 Attending physician: Mary Leiva MD Consults: 01/31/22 12:40 Consult Physician Routine Consulting Provider: Remi Burger Consult Reason/Comments: chest pain Do you want consulting provider notified?: Yes Primary care physician: Rickie Brenner - Discharge Diagnosis(es) (1) Chest pain Current Visit: Yes Status: Acute Hospital Course: Patient seen and examined. States the chest and this resolved. States his symptoms been ongoing for the past 1 month because about 2-3 times a week. The pain is mainly located on the left side of the chest and feels like pain that goes up also in the left neck. 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 States has a history of catheterization more than 6 years ago which per her was negative. Patient states she has extensive family history of heart disease including her father who had CAD in his 40s ended up getting a bypass surgery. A brother has history of stents. During the hospitalization patient has not had any reoccurrence of chest pain. She remains asymptomatic. Denies any chest pain, shortness of breath or palpitations. Her blood pressure is controlled. Patient was seen by cardiology who stated that she can get a stress test done outpatient and she is supposed to follow-up with her office to set it up. I offered the patient option to stay here and get a stress test done tomorrow, as did do not perform stress test on weekends. Patient insists that she would like to go home in The stress test done outpatient. Patient understands the risk of having an AR sudden cardiac if she does not get the stress test done as soon as possible, and she is agreeable with that. Explained in detail patient's diagnosis, prognosis and future plan. She verbalized understanding. Physical exam: General: [nontoxic], [no distress], [appears at stated age] Derm: [warm], [dry] Head: [atraumatic], [normocephalic], [symmetric] Eyes: [EOMI], [no lid lag], [anicteric sclera] Mouth: [no lip lesion], [mucus membranes moist] Cardiovascular: [S1S2 reg], [no murmur], [positive posterior tibial pulse bilateral], Lungs: [CTA bilateral], [no rhonchi, no rales] , [no accessory muscle use] Abdominal: [soft], [ nontender to palpation], [no guarding], [no appreciable organomegaly] Ext: [no gross muscle atrophy], [no edema], [no contractures] Patient Condition at Discharge: Good Plan - Discharge Summary Discharge Rx Participant: Yes New Discharge Prescriptions: New Nitroglycerin Sl Tabs [Nitrostat] 0.4 mg SUBLINGUAL Q5M PRN #25 tab PRN Reason: Chest Pain No Action traZODone HCL [Desyrel] 100 mg PO HS PRN PRN Reason: Insomnia Baclofen 10 mg PO BID PRN PRN Reason: Muscle Spasm lisinopriL [Zestril] 20 mg PO DAILY Nitroglycerin Sl Tabs [Nitrostat] 0.4 mg SUBLINGUAL Q5M PRN PRN Reason: Chest Pain Aspirin EC [Ecotrin Low Dose] 81 mg PO DAILY Escitalopram Oxalate [Lexapro] 10 mg PO DAILY Discharge Medication List traZODone HCL [Desyrel] 100 mg PO HS PRN 10/07/19 [History] Aspirin EC [Ecotrin Low Dose] 81 mg PO DAILY 01/31/22 [History] Baclofen 10 mg PO BID PRN 01/31/22 [History] Escitalopram Oxalate [Lexapro] 10 mg PO DAILY 01/31/22 [History] lisinopriL [Zestril] 20 mg PO DAILY 01/31/22 [History] Nitroglycerin Sl Tabs [Nitrostat] 0.4 mg SUBLINGUAL Q5M PRN 02/01/22 [History] Nitroglycerin Sl Tabs [Nitrostat] 0.4 mg SUBLINGUAL Q5M PRN #25 tab 02/01/22 [Rx] Follow up Appointment(s)/Referral(s): Rickie Brenner DO [Primary Care Provider] - 1-2 days Remi Burger MD [STAFF PHYSICIAN] - 1 Week Patient Instructions/Handouts: Chest Pain (ED) Activity/Diet/Wound Care/Special Instructions: cardiac diet Discharge Disposition: HOME SELF-CARE Plan of Treatment: Patient to follow up outpatient with cardiology for setting up stress test as soon as possible.
== END 2022-02-01 12:20 | disposition home or self-care (01) ==
LOC: EC 21:29 → 6NMEDSUR 01-31 02:00
PROVIDERS: ADMIT Internal Medicine; ATTEND Internal Medicine
DX: I20.9 Angina pectoris, unspecified (principal); I10 Essential (primary) hypertension; F39 Unspecified mood [affective] disorder; I08.1 Rheumatic disorders of both mitral and tricuspid valves; K21.9 Gastro-esophageal reflux disease without esophagitis; M19.90 Unspecified osteoarthritis, unspecified site; M54.2 Cervicalgia; F41.9 Anxiety disorder, unspecified; Z79.82 Long term (current) use of aspirin; Z79.899 Other long term (current) drug therapy; Z16.12 Extended spectrum beta lactamase (ESBL) resistance; Z87.440 Personal history of urinary (tract) infections; Z87.19 Personal history of other diseases of the digestive system; Z90.49 Acquired absence of other specified parts of digestive tract; Z98.51 Tubal ligation status; Z90.711 Acquired absence of uterus with remaining cervical stump; Z98.890 Other specified postprocedural states; Z82.49 Family history of ischemic heart disease and other diseases of the circulatory system; Z80.0 Family history of malignant neoplasm of digestive organs; Z82.5 Family history of asthma and other chronic lower respiratory diseases; Z82.61 Family history of arthritis; Z80.51 Family history of malignant neoplasm of kidney
CPT/HCPCS: 96372 ×3; 99285; 36415; 93005; 93306; 83880; 80061; 80053; 80048; 83735; 84484 ×2; 85025 ×2; 85610; 85730; 81001; 83036; 71046; G0378 ×2; J1644 ×2

== ENCOUNTER → 2022-01-30 | Outpatient (CLI) | payer BC ==
--- NOTE | 2022-01-30 16:00 | XR ---
Cervical spine HISTORY: Spondylosis, neck pain 5 views of the cervical spine There is multilevel facet arthropathy. Atherosclerotic vascular calcifications are suspected within t he carotid artery distribution. No significant foraminal encroachment. Minimal mitral listhesis grade 1 C5-6 and C6-7 felt likely to be degenerative. C7-T1 not included on the exam. Loss of disc height present at C4-5. Spondylosis present at C5. Bone mineralization appears reduced. IMPRESSION: Degenerative disc disease and facet arthropathy. There may be underlying osteopenia.
== END | disposition home or self-care (01) ==
LOC: RADXRMAIN 14:52
PROVIDERS: ATTEND Family Medicine
DX: M50.323 Other cervical disc degeneration at C6-C7 level (principal)
CPT/HCPCS: 72050

== ENCOUNTER 2022-06-02 12:16 | Emergency (ER) | payer BC ==
[2022-06-02 13:13] VITALS: PULSE 84
[2022-06-02 14:15] VITALS: BP 121/77; RESP 18; TEMP 97.7
--- NOTE | 2022-06-02 14:32 | ED ---
URI HPI - General Chief Complaint: Upper Respiratory Infection Stated Complaint: "not feeling right" Time Seen by Provider: 06/02/22 13:14 Source: patient, RN notes reviewed Mode of arrival: ambulatory Limitations: no limitations - History of Present Illness Initial Comments: 8-year-old female presents emergency Department with chief complaint of headach e, cough congestion. Patient states she did not feel well for last 5-6 days. Patient states she does has pressure in her facial region. Patient has not taken any [id number] cough and cold medications no reported fever. Patient denies any sick contacts denies any chest pain. Patient denies any other associated symptoms. Denies nausea vomiting diarrhea constipation no neck pain or neck stiffness. No dizziness. - Related Data Home Medications Medication Instructions Recorded Confirmed Baclofen 10 mg PO BID PRN 01/31/22 01/31/22 Escitalopram Oxalate [Lexapro] 10 mg PO DAILY 01/31/22 01/31/22 Previous Rx's Medication Instructions Recorded Aspirin 81 mg PO DAILY tab 02/01/22 Baclofen [Lioresal] 10 mg PO TID PRN tab 02/01/22 Nitroglycerin Sl Tabs [Nitrostat] 0.4 mg SUBLINGUAL Q5M PRN #25 tab 02/01/22 lisinopriL [Zestril] 20 mg PO QAM #30 tab 02/01/22 Allergies Allergy/AdvReac Type Severity Reaction Status Date / Time No Known Allergies Allergy Verified 01/31/22 11:14 Review of Systems ROS Statement: Those systems with pertinent positive or pertinent negative responses have been documented in the HPI. ROS Other: All systems not noted in ROS Statement are negative. Past Medical History Past Medical History: Chest Pain / Angina, GERD/Reflux, Hypertension, Osteoarthritis (OA), Syncope Additional Past Medical History / Comment(s): Pancreatitis. UTI History of Any Multi-Drug Resistant Organisms: ESBL Date of last positivie culture/infection: 03/21/18 MDRO Source:: ESBL URINE Past Surgical History: Cholecystectomy, Heart Catheterization, Hysterectomy, Tubal Ligation Additional Past Surgical History / Comment(s): had PARTIAL hysterectomy, HIATAL HERNIA REPAIR, ERCP, BLADDER SUSPENSION X2, CYSTOCELE, RECTOCELE REPAIR Past Anesthesia/Blood Transfusion Reactions: Postoperative Nausea & Vomiting (PONV) Past Psychological History: Anxiety Smoking Status: Never smoker Past Alcohol Use History: None Reported Past Drug Use History: None Reported - Past Family History Father Family Medical History: Cancer Additional Family Medical History / Comment(s): KIDNEY/COLON CANCER. Mother Family Medical History: Asthma, Hypertension, Osteoarthritis (OA) General Exam Limitations: no limitations General appearance: alert, in no apparent distress Head exam: Present: atraumatic, normocephalic, normal inspection Eye exam: Present: normal appearance, PERRL, EOMI. Absent: scleral icterus, conjunctival injection, periorbital swelling ENT exam: Present: normal exam, normal oropharynx Neck exam: Present: normal inspection, full ROM. Absent: tenderness, meningismus, lymphadenopathy Respiratory exam: Present: normal lung sounds bilaterally. Absent: respiratory distress, wheezes, rales, rhonchi, stridor Cardiovascular Exam: Present: regular rate, normal rhythm, normal heart sounds. Absent: systolic murmur, diastolic murmur, rubs, gallop, clicks GI/Abdominal exam: Present: soft, normal bowel sounds. Absent: distended, te nderness, guarding, rebound, rigid Neurological exam: Present: alert, oriented X3, CN II-XII intact Skin exam: Present: warm, dry, intact, normal color. Absent: rash Course Vital Signs 06/02/22 06/02/22 06/02/22 13:09 13:33 14:15 Temperature 98 F 97.7 F Pulse Rate 84 84 Respiratory 16 17 18 Rate Blood Pressure 122/67 121/77 O2 Sat by Pulse 100 98 Oximetry Medical Decision Making - Medical Decision Making 62-year-old presents with not feeling well patient is COVID-19 positive. Patient discharged in stable condition return parameters were discussed. - Lab Data Lab Results 06/02/22 Range/Units 13:28 Influenza Type A (PCR) Not Detected (Not Detectd) Influenza Type B (PCR) Not Detected (Not Detectd) RSV (PCR) Not Detected (Not Detectd) SARS-CoV-2 (PCR) Detected A (Not Detectd) Disposition Clinical Impression: COVID-19 Disposition: HOME SELF-CARE Condition: Stable Instructions (If sedation given, give patient instructions): COVID-19 (Coronavirus Disease 2019) (ED) Additional Instructions: Please return to the Emergency Department if symptoms worsen or any other concerns. Is patient prescribed a controlled substance at d/c from ED?: No Referrals: Rickie Brenner DO [Primary Care Provider] - 1-2 days Time of Disposition: 14:32
== END 2022-06-02 14:53 | disposition home or self-care (01) ==
LOC: EC 12:16
DX: U07.1 COVID-19 (principal); I10 Essential (primary) hypertension; F41.9 Anxiety disorder, unspecified
CPT/HCPCS: 87636; 99284

== ENCOUNTER 2023-04-06 12:45 | Emergency (ER) | payer BC ==
--- NOTE | 2023-04-06 13:36 | ED ---
Dizziness HPI - General Chief Complaint: Dizziness Stated Complaint: light headed low iron Time Seen by Provider: 04/06/23 13:36 Source: patient, RN notes reviewed Mode of arrival: ambulatory Limitations: no limitations - History of Present Illness Initial Comments: 63-year-old female presents emergency Department chief complaint of feeling lightheaded come dizziness. Patient states started over the weekend. Patient states her room seems to spin just feels lightheaded seen time. Denies any chest pain or shortness of breath she states that she's had some anemia, iron issues. Denies nausea vomiting. - Related Data Home Medications Medication Instructions Recorded Confirmed Baclofen 10 mg PO BID PRN 01/31/22 01/31/22 Escitalopram Oxalate [Lexapro] 10 mg PO DAILY 01/31/22 01/31/22 Previous Rx's Medication Instructions Recorded Aspirin 81 mg PO DAILY tab 02/01/22 Baclofen [Lioresal] 10 mg PO TID PRN tab 02/01/22 Nitroglycerin Sl Tabs [Nitrostat] 0.4 mg SUBLINGUAL Q5M PRN #25 tab 02/01/22 lisinopriL [Zestril] 20 mg PO QAM #30 tab 02/01/22 Meclizine [Antivert] 25 mg PO TID PRN #15 tab 04/06/23 Allergies Allergy/AdvReac Type Severity Reaction Status Date / Time No Known Allergies Allergy Verified 04/06/23 12:59 Review of Systems ROS Statement: Those systems with pertinent positive or pertinent negative responses have been documented in the HPI. ROS Other: All systems not noted in ROS Statement are negative. Past Medical History Past Medical History: Chest Pain / Angina, GERD/Reflux, Hypertension, Osteoar thritis (OA), Syncope Additional Past Medical History / Comment(s): Pancreatitis. UTI History of Any Multi-Drug Resistant Organisms: ESBL Date of last positivie culture/infection: 03/21/18 MDRO Source:: ESBL URINE Past Surgical History: Cholecystectomy, Heart Catheterization, Hysterectomy, Tubal Ligation Additional Past Surgical History / Comment(s): had PARTIAL hysterectomy, HIATAL HERNIA REPAIR, ERCP, BLADDER SUSPENSION X2, CYSTOCELE, RECTOCELE REPAIR Past Anesthesia/Blood Transfusion Reactions: Postoperative Nausea & Vomiting (PONV) Past Psychological History: Anxiety Smoking Status: Never smoker Past Alcohol Use History: None Reported Past Drug Use History: None Reported - Past Family History Father Family Medical History: Cancer Additional Family Medical History / Comment(s): KIDNEY/COLON CANCER. Mother Family Medical History: Asthma, Hypertension, Osteoarthritis (OA) General Exam - General Exam Comments Initial Comments: Visual Physical Exam Vital signs reviewed General: Well-appearing, nontoxic, no acute distress. Head: Normocephalic, atraumatic Eyes: PERRLA, EOMI ENT: Airway patent Chest: Nonlabored breathing Skin: No visual rash, normal skin tone Neuro: Alert and oriented 3 Musculoskeletal: No gross abnormalities Limitations: no limitations General appearance: alert, in no apparent distress Head exam: Present: atraumatic, normocephalic, normal inspection Eye exam: Present: normal appearance, PERRL, EOMI. Absent: scleral icterus, conjunctival injection, periorbital swelling ENT exam: Present: normal exam, normal oropharynx, mucous membranes moist, TM's normal bilaterally Neck exam: Present: normal inspection, full ROM. Absent: tenderness, meningismus, lymphadenopathy Respiratory exam: Present: normal lung sounds bilaterally. Absent: respiratory distress, wheezes, rales, rhonchi, stridor Cardiovascular Exam: Present: regular rate, normal rhythm, normal heart sounds. Absent: systolic murmur, diastolic murmur, rubs, gallop, clicks Extremities exam: Present: normal inspection, full ROM, normal capillary refill. Absent: tenderness, pedal edema, joint swelling, calf tenderness Neurological exam: Present: alert, oriented X3, CN II-XII intact, normal gait, reflexes normal. Absent: motor sensory deficit Course Vital Signs 04/06/23 04/06/23 12:59 15:06 Temperature 98.3 F 98.2 F Pulse Rate 97 72 Respiratory 18 16 Rate Blood Pressure 152/81 167/74 O2 Sat by Pulse 100 100 Oximetry Medical Decision Making - Medical Decision Making I performed a quick note portion of this chart signed Alonzo Saha PA-C Was pt. sent in by a medical professional or institution (YANDEL Meyers, NURSING HOME DIRECTOR, urgent care, hospital, or penitentiary...) When possible be specific @ -No Did you speak to anyone other than the patient for history (EMS, parent, family, police, friend...)? What history was obtained from this source @ -No Did you review nursing and triage notes (agree or disagree)? Why? @ -I reviewed and agree with nursing and triage notes Were old charts reviewed (outside hosp., previous admission, EMS record, old EKG, old radiological studies, urgent care reports/EKG's, penitentiary records)? Report findings @ -No old charts were reviewed Differential Diagnosis (chest pain, altered mental status, abdominal pain women, abdominal pain men, vaginal bleeding, weakness, fever, dyspnea, syncope, headache, dizziness, GI bleed, back pain, seizure, CVA, palpatations, mental health, musculoskeletal)? @ -nDifferential Dizziness: Benign paroxysmal positional Vertigo, Menieres disease, otitis media, acoustic neuroma, vertebrobasilar insufficiency, cerebellar stroke, encephalitis, hypovolemic, arrhythmia, coronary artery syndrome, anemia, this is not meant to be an all-inclusive liste EKG interpreted by me (3pts min.). @ -As above X-rays interpreted by me (1pt min.). @ -None done CT interpreted by me (1pt min.). @ -CT brain showed no acute process U/S interpreted by me (1pt. min.). @ -None done What testing was considered but not performed or refused? (CT, X-rays, U/S, labs)? Why? @ -None What meds were considered but not given or refused? Why? @ -None Did you discuss the management of the patient with other professionals (professionals i.e. , PA, NURSING HOME DIRECTOR, lab, RT, psych nurse, social insurance analyst, medical artist, teacher, radio electronics officer, director of casework department)? Give summary @ -No Was smoking cessation discussed for >3mins.? @ -No Was critical care preformed (if so, how long)? @ -No Were there social determinants of health that impacted care today? How? (Homelessness, low income, unemployed, alcoholism, drug addiction, transportation, low edu. Level, literacy, decrease access to med. care, fpc, rehab)? @ -No Was there de-escalation of care discussed even if they declined (Discuss DNR or withdrawal of care, Hospice)? DNR status @ -No What co-morbidities impacted this encounter? (DM, HTN, Smoking, COPD, CAD, Cancer, CVA, ARF, Chemo, Hep., AIDS, mental health diagnosis, sleep apnea, morbid obesity)? @ -None Was patient admitted / discharged? Hospital course, mention meds given and route, prescriptions, significant lab abnormalities, going to OR and other pe rtinent info. @ -Discharge patient to for complete labs, EKG, CT with no specific findings. Patient was given Antivert did have some mild improvement. Patient at this point became very irate yelling at staff including me, nurse stating that this is an ongoing which patient did not initially state. This is more of a chronic issue nature she states that nobody is helping her she has seen her PCP and she states that she is here for all answers occluding admission because this is been going on for over one year. I did explain that she has no significant findings she is not intact and no deficits. She is advised follow-up neurology. Patient's began screaming at staff and left.] Undiagnosed new problem with uncertain prognosis? @ -No Drug Therapy requiring intensive monitoring for toxicity (Heparin, Nitro, Insul in, Cardizem)? @ -No] Were any procedures done? @ -[No] Diagnosis/symptom? @ -[Dizziness] Acute, or Chronic, or Acute on Chronic? @ -[Acute on chronic] Uncomplicated (without systemic symptoms) or Complicated (systemic symptoms)? @ -[Complicated] Side effects of treatment? @ -[No] Exacerbation, Progression, or Severe Exacerbation? @ -[No] Poses a threat to life or bodily function? How? (Chest pain, [place], [place], pneumonia, PE, COPD, DKA, ARF, appy, cholecystitis, CVA, Diverticulitis, Homicidal, Suicidal, threat to staff... and all critical care pts) @ -[No] - Lab Data Result diagrams: 04/06/23 13:24 04/06/23 13:24 Lab Results 04/06/23 04/06/23 04/06/23 Range/Units 13:24 13:24 13:24 WBC 5.5 (3.8-10.6) k/uL RBC 3.82 (3.80-5.40) m/uL Hgb 10.5 L (11.4-16.0) gm/dL Hct 33.1 L (34.0-46.0) % MCV 86.6 (80.0-100.0) fL MCH 27.5 (25.0-35.0) pg MCHC 31.7 (31.0-37.0) g/dL RDW 13.5 (11.5-15.5) % Plt Count 351 (150-450) k/uL MPV 7.5 Neutrophils % 65 % Lymphocytes % 22 % Monocytes % 7 % Eosinophils % 2 % Basophils % 1 % Neutrophils # 3.6 (1.3-7.7) k/uL Lymphocytes # 1.2 (1.0-4.8) k/uL Monocytes # 0.4 (0-1.0) k/uL Eosinophils # 0.1 (0-0.7) k/uL Basophils # 0.0 (0-0.2) k/uL Hypochromasia Slight PT 10.2 (9.0-12.0) sec INR 1.0 (<1.2) Sodium (137-145) mmol/L Potassium (3.5-5.1) mmol/L Chloride (98-107) mmol/L Carbon Dioxide (22-30) mmol/L Anion Gap mmol/L BUN (7-17) mg/dL Creatinine (0.52-1.04) mg/dL Est GFR (CKD-EPI)AfAm (>60 ml/min/1.73 sqM) Est GFR (CKD-EPI)NonAf (>60 ml/min/1.73 sqM) Glucose (74-99) mg/dL Calcium (8.4-10.2) mg/dL Total Bilirubin (0.2-1.3) mg/dL AST (14-36) U/L ALT (4-34) U/L Alkaline Phosphatase (38-126) U/L Troponin I (0.000-0.034) ng/mL Total Protein (6.3-8.2) g/dL Albumin (3.5-5.0) g/dL Urine Color Light Yellow Urine Appearance Clear (Clear) Urine pH 6.0 (5.0-8.0) Ur Specific [place] 1.023 (1.001-1.035) Urine Protein Trace H (Negative) Urine Glucose (UA) Negative (Negative) Urine Ketones Negative (Negative) Urine Blood Negative (Negative) Urine Nitrite Negative (Negative) Urine Bilirubin Negative (Negative) Urine Urobilinogen <2.0 (<2.0) mg/dL Ur Leukocyte Esterase Negative (Negative) 04/06/23 04/06/23 Range/Units 13:24 13:24 WBC (3.8-10.6) k/uL RBC (3.80-5.40) m/uL Hgb (11.4-16.0) gm/dL Hct (34.0-46.0) % MCV (80.0-100.0) fL MCH (25.0-35.0) pg MCHC (31.0-37.0) g/dL RDW (11.5-15.5) % Plt Count (150-450) k/uL MPV Neutrophils % % Lymphocytes % % Monocytes % % Eosinophils % % Basophils % % Neutrophils # (1.3-7.7) k/uL Lymphocytes # (1.0-4.8) k/uL Monocytes # (0-1.0) k/uL Eosinophils # (0-0.7) k/uL Basophils # (0-0.2) k/uL Hypochromasia PT (9.0-12.0) sec INR (<1.2) Sodium 137 (137-145) mmol/L Potassium 4.5 (3.5-5.1) mmol/L Chloride 101 (98-107) mmol/L Carbon Dioxide 25 (22-30) mmol/L Anion Gap 11 mmol/L BUN 20 H (7-17) mg/dL Creatinine 0.68 (0.52-1.04) mg/dL Est GFR (CKD-EPI)AfAm >90 (>60 ml/min/1.73 sqM) Est GFR (CKD-EPI)NonAf >90 (>60 ml/min/1.73 sqM) Glucose 102 H (74-99) mg/dL Calcium 10.0 (8.4-10.2) mg/dL Total Bilirubin 1.1 (0.2-1.3) mg/dL AST 33 (14-36) U/L ALT 23 (4-34) U/L Alkaline Phosphatase 74 (38-126) U/L Troponin I <0.012 (0.000-0.034) ng/mL Total Protein 7.6 (6.3-8.2) g/dL Albumin 4.5 (3.5-5.0) g/dL Urine Color Urine Appearance (Clear) Urine pH (5.0-8.0) Ur Specific [place] (1.001-1.035) Urine Protein (Negative) Urine Glucose (UA) (Negative) Urine Ketones (Negative) Urine Blood (Negative) Urine Nitrite (Negative) Urine Bilirubin (Negative) Urine Urobilinogen (<2.0) mg/dL Ur Leukocyte Esterase (Negative) Disposition Clinical Impression: Vertigo Disposition: HOME SELF-CARE Condition: Stable Instructions (If sedation given, give patient instructions): Dizziness (ED) Additional Instructions: Please return to the Emergency Department if symptoms worsen or any other concerns. Prescriptions: Meclizine [Antivert] 25 mg PO TID PRN #15 tab PRN Reason: Vertigo Is patient prescribed a controlled substance at d/c from ED?: No Referrals: Rickie Brenner DO [Primary Care Provider] - 1-2 days Time of Disposition: 15:10
[2023-04-06 13:40] LABS: Basophils % (A) 1 %; Eosinophils # (A) 0.1 k/uL (0-0.7); Eosinophils % (A) 2 %; HCT 33.1 % (34.0-46.0); HGB 10.5 gm/dL (11.4-16.0); Hypochromasia Slight; Lymphocytes # (A) 1.2 k/uL (1.0-4.8); Lymphocytes % (A) 22 %; MCH 27.5 pg (25.0-35.0); MCHC 31.7 g/dL (31.0-37.0); MCV 86.6 fL (80.0-100.0); Mean Platelet Volume 7.5; Monocytes # (A) 0.4 k/uL (0-1.0); Monocytes % (A) 7 %; Neutrophils # (A) 3.6 k/uL (1.3-7.7); Neutrophils % (A) 65 %; Platelet Count 351 k/uL (150-450); RBC 3.82 m/uL (3.80-5.40); RDW 13.5 % (11.5-15.5); WBC 5.5 k/uL (3.8-10.6)
[2023-04-06 13:41] LABS: Appearance,Urine Clear (Clear); Bilirubin,Urine Negative (Negative); Blood,Urine Negative (Negative); Color,Urine Light Yellow; Glucose,Urine (UA) Negative (Negative); Ketones,Urine Negative (Negative); Leukocyte Esterase,Urine Negative (Negative); Nitrite,Urine Negative (Negative); Protein,Urine Trace (Negative); Specific Gravity,Urine 1.023 (1.001-1.035); Urobilinogen,Urine <2.0 mg/dL (<2.0)
[2023-04-06 13:48] LABS: Prothrombin Time 10.2 sec (9.0-12.0)
[2023-04-06 13:56] LABS: ALT 23 U/L (4-34); AST 33 U/L (14-36); African American GFR (CKD) >90 (>60 ml/min/1.73 sqM); Albumin 4.5 g/dL (3.5-5.0); Alkaline Phosphatase 74 U/L (38-126); Blood Urea Nitrogen 20 mg/dL (7-17); Carbon Dioxide 25 mmol/L (22-30); Chloride 101 mmol/L (98-107); Glucose 102 mg/dL (74-99); Non-African American GFR(CKD) >90 (>60 ml/min/1.73 sqM); Total Bilirubin 1.1 mg/dL (0.2-1.3); Total Protein 7.6 g/dL (6.3-8.2)
[2023-04-06 14:05] LABS: Anion Gap 11 mmol/L; Potassium 4.5 mmol/L (3.5-5.1); Sodium 137 mmol/L (137-145)
[2023-04-06] MEDS ORDERED: SODIUM CHLORIDE 0.9% 1,000 ML IV ONE (14:09)
[2023-04-06] MEDS ORDERED: MECLIZINE 12.5 MG TAB PO STA (14:09)
[2023-04-06] MEDS ORDERED: METOCLOPRAMIDE 5 MG/ML 2 ML VIAL IVP STA (14:09)
--- NOTE | 2023-04-06 14:37 | CT ---
EXAMINATION TYPE: CT brain wo con CT DLP: 1112.4 mGycm, Automated exposure control for dose reduction was used. DATE OF EXAM: 04/06/2023 2:31 PM COMPARISON: None. CLINICAL INDICATION:Female, 63 years old with history of Dizziness, headaches, dizziness TECHNIQUE: Brain: Multiple axial CT images of the brain were obtained without IV contrast. Coronal and sagittal reformats reviewed. FINDINGS: Brain: Extra-axial spaces: No abnormal extra-axial fluid collections. Ventricular system: Within normal limits Cerebral parenchyma: No acute intraparenchymal hemorrhage or mass effect. The muñoz-white junction is well differentiated. Cerebellum: Unremarkable. Mass effect: No evidence of midline shift. Intracranial vasculature: Atherosclerotic calcifications of the intracranial vessels. Soft tissues: Normal. Calvarium/osseous structures: No depressed skull fracture. Paranasal sinuses and mastoid air cells: Clear Visualized orbits: Orbital contents are intact. IMPRESSION: No acute intracranial process.
[2023-04-06 15:08] VITALS: BP 167/74; PULSE 72; RESP 16; TEMP 98.2
== END 2023-04-06 15:27 | disposition home or self-care (01) ==
LOC: EC 12:45
DX: R42 Dizziness and giddiness (principal); I10 Essential (primary) hypertension; F41.9 Anxiety disorder, unspecified; Z79.899 Other long term (current) drug therapy; Z90.49 Acquired absence of other specified parts of digestive tract
CPT/HCPCS: 36415; 93005; 80053; 84484; 85025; 85610; 81003; 70450; 99284; 96374; J2765

== ENCOUNTER 2024-12-12 08:46 | Day surgery (SDC) | payer BC ==
[2024-12-08 14:27] VITALS: BMI 24.0
[~2024-12-12 08:46] MED LIST changes: -LACTATED RINGERS 1,000 ML IV SCH
[2024-12-12 09:10] VITALS: TEMP 96.7
[2024-12-12] MEDS: IV FLUID CONTINUATION 1,000 ML IV ONE (09:16)
[2024-12-12] MEDS: LACTATED RINGERS 1,000 ML IV SCH (09:16)
[2024-12-12] MEDS ORDERED: PROPOFOL 10 MG/ML 20 ML VIAL IV ONE (09:31)
[2024-12-12] MEDS ORDERED: LIDOCAINE 2% (PF) 20 MG/ML 5 ML VIAL ONE (09:31)
--- NOTE | 2024-12-12 09:47 | P.PCN ---
Date of Procedure: 12/12/24 Procedure(s) Performed: Preoperative Dx: Dysphagia Postoperative Dx: Duodenitis, gastritis with erosions Procedure: EGD with Bx Anesthesia: Sedation Endoscopist: Dr. Torres Specimens: Prepyloric region, duodenum Endoscopic Procedure: The patient was on the endoscopy table in the left decubitus position. The Olympus gastroscope was inserted into the oropharynx and passed under direct visualization to the region of the third portion of the duodenum. From that point the scope was slowly withdrawn inspecting all surfaces carefully. There was mild duodenitis with a few small linear erosions. Biopsies of the duodenum took place. The stomach was inspected. The pylorus was widely patent. In the prepyloric region there were gastritis with superficial erosions. A biopsy took place. There was slightly more brisk bleeding from the biopsy site than normal. A clip was deployed with no further significant bleeding noted. Retroflexion revealed mild gastritis proximally but no ulcerations or erosions. No visible hiatal hernia. The esophagus was examined. There was mild tortuosity but otherwise normal. There was no evidence of stricture or extrinsic compression to explain her dysphagia. The patient was then taken to the recovery room in stable condition per anesthesia guidelines. Recommendations: Continue antiacids. Await biopsy results. Patient's symptoms of dysphagia likely related to esophageal dysmotility given the patient's previous upper GI showing tertiary contractions.
[2024-12-12 09:59] VITALS: RESP 16
[2024-12-12 10:12] VITALS: BP 110/60; PULSE 70
== END 2024-12-12 10:35 | disposition home or self-care (01) ==
LOC: ORWHC2ENDO 08:46
PROVIDERS: ATTEND Surgery
DX: K29.50 Unspecified chronic gastritis without bleeding (principal); K29.80 Duodenitis without bleeding
CPT/HCPCS: 43239; J2704; J2003; 88305